=== PATIENT | female | born 1955 | race Caucasian/White ===

== ENCOUNTER 2021-01-18 21:24 | Inpatient (IN) ==
[2021-01-18] MEDS ORDERED: VANCOMYCIN CONSULT ACTIVE PRN (21:41)
[2021-01-18] MEDS ORDERED: PIPERACILLIN/TAZOBACTAM 4.5 GM/120 ML BAG IV ONE (21:41)
[2021-01-18] MEDS ORDERED: VANCOMYCIN HCL 2,750 MG in SODIUM CHLORIDE 0.9% 500 ML IV ONE (21:41)
[2021-01-18] MEDS ORDERED: PIPERACILL/TAZOBAC CONSULT ACTIVE PRN (21:41)
--- NOTE | 2021-01-18 21:57 | Emergency Department Note ---
Impression & Plan Diabetic foot ulcer, Cellulitis ED Provider Note PhysicalNAME: ALEXI HAYES AGE: 65 SEX: F : 1955 ARRIVES VIA: Ambulance INFORMANT: Patient, ED PROVIDER(S): Sosa Nolasco DO CHIEF COMPLAINT: Leg swelling HPI: The patient is a 65-year-old female who presented to the emergency department for an evaluation of pain in her leg. The patient noticed swelling and pain in her right leg. She is had ulceration in her right leg on her medial thigh which started out as a blister but also to ulcerations on her foot. There is 1 in her heel and one right behind her toes. She denies having any nausea or vomiting. She denies no fever. She does complain of severe pain when she tries ambulate. The patient states she saw her primary care physician for the symptoms in July of this year but was told to continue to monitor the situation. The patient is not currently on any antibiotics. The patient states that she has been compliant with all of her other outpatient medications. She states her pain is worsened with ambulation or movement. ROS: See above HPI for pertinent positives & negatives. A total of 10 systems reviewed and were otherwise negative. PAST MEDICAL HISTORY: See Below PAST SURGICAL HISTORY: See Below FAMILY HISTORY: See Below SOCIAL HISTORY: See Below HOME MEDICATIONS: See Below ALLERGIES: See Below VITALS: See Below PHYSICAL EXAMINATION: GENERAL: The patient is awake and alert. The patient is very anxious appearing. EYES: The conjunctivae are clear. The pupils are round and reactive. EARS, NOSE, MOUTH AND THROAT: The nose is without any evidence of any deformity. NECK: The neck is nontender and supple. RESPIRATORY: Normal respiratory effort is noted there is no evidence of wheezing rhonchi or rales CARDIOVASCULAR: Regular rate and rhythm noted there no murmurs rubs or gallops normal S1 normal S2. GASTROINTESTINAL: The abdomen is soft. Abdomen is nontender. MUSCULOSKELETAL/EXTREMITIES: There is no evidence of gross deformity full range of motion is noted in the hips and shoulders. SKIN: There is significant erythema and swelling of the right lower extremity. There is pedal edema bilaterally. Skin is warm and dry. There is an ulceration on the right heel as well as behind the right toes. There is also a very large ulceration on the medial right thigh. NEUROLOGIC: Patient is awake alert and oriented x3. MEDICAL DECISION MAKING: The patient is a 65-year-old female who presented to the emergency department for an evaluation of lower extremity pain and swelling. The patient's physical exam appears to be consistent with a very significant infection. The patient had an ulceration on her inner right thigh as well. The patient was treated with IV antibiotics in the emergency department. She was reevaluated multiple times. I discussed the patient's laboratory and radiographic studies with her. Ultimately I did recommend inpatient management. [facility] have agreed to evaluate the patient in the emergency department for further management and disposition. Triage Nursing notes reviewed. Prior medical records reviewed Vital Signs: reviewed and remarkable for hypotension Differential diagnosis: Cellulitis, abscess, MRSA infection, DVT, necrotizing fasciitis, dermatitis, drug eruption, allergic reaction, as well as other pathologies. ER treatment provided: See below Diagnostics interpreted by me: ECG: EKG was obtained in the emergency department. My interpretation is sinus rhythm at 83 bpm. There was no ectopy. There was no acute ST segment abnormalities noted. No previous tracing was available. Cardiac Monitoring: An order was placed for continuous cardiac monitoring. The monitor shows a rate of 79 bpm with sinus rhythm. Laboratory studies: As stated above and show below. Imaging studies: See below Consultation(s): 0005: I discussed this case with Dr. Rodriguez who [facility] Past Med/Surg History Medical History History of high cholesterol History of insulin dependent diabetes mellitus Hypertension Social History Smoking Status: Never smoker Feels Safe at Home: Yes Allergies Allergies Allergy/AdvReac Type Severity Reaction Status Date / Time No Known Allergies Allergy NONE Unverified 01/18/21 21:47 Home Meds Home Medications Medication Instructions Recorded Confirmed aspirin 81 mg tablet 81 mg PO DAILY 01/18/21 01/18/21 atenolol 50 mg tablet 50 mg PO DAILY 01/18/21 01/18/21 furosemide 20 mg tablet 20 mg PO DAILY PRN 01/18/21 01/18/21 hydrochlorothiazide 25 mg tablet 25 mg PO DAILY 01/18/21 01/18/21 insulin aspart U-100 100 unit/mL 0 unit SUBCUT UD 01/18/21 01/18/21 subcutaneous solution (Novolog U-100 Insulin aspart) insulin glargine 100 unit/mL 30 unit SUBCUT BID 01/18/21 01/18/21 subcutaneous solution (Lantus U-100 Insulin) losartan 100 mg tablet 100 mg PO DAILY 01/18/21 01/18/21 metformin 500 mg tablet 1,000 mg PO BID 01/18/21 01/18/21 simvastatin 20 mg tablet 20 mg PO DAILY 01/18/21 01/18/21 Results & Data (ED) Vital Signs Vital Signs - 24 hr 01/18/21 21:20 01/18/21 21:31 01/18/21 22:33 Temperature 37.5 C Temperature Source Oral Pulse Rate 88 86 83 Pulse Rate from SpO2 Sensor 86 Respiratory Rate 20 22 21 Respiratory Effort / Characteristics Non-Labored Respiratory Depth Normal Blood Pressure 136/65 106/59 L Blood Pressure Mean 88 74 Pulse Oximetry 91 95 Oxygen Delivery Method Room Air Oxygen Flow Rate Sepsis Recent Fever Within 48 Hours No Sepsis New/Unexplained Change in Mental Status N/A Sepsis Action Taken by Nursing No Action Required 01/18/21 22:51 01/18/21 23:01 01/18/21 23:11 Temperature Temperature Source Pulse Rate 80 80 Pulse Rate from SpO2 Sensor 81 Respiratory Rate 18 18 Respiratory Effort / Characteristics Respiratory Depth Blood Pressure 114/73 Blood Pressure Mean 86 Pulse Oximetry 94 95 95 Oxygen Delivery Method Nasal Cannula Nasal Cannula Nasal Cannula Oxygen Flow Rate 2 1 1 Sepsis Recent Fever Within 48 Hours Sepsis New/Unexplained Change in Mental Status Sepsis Action Taken by Nursing 01/18/21 23:12 01/18/21 23:34 Temperature Temperature Source Pulse Rate 79 Pulse Rate from SpO2 Sensor Respiratory Rate 18 18 Respiratory Effort / Characteristics Non-Labored Respiratory Depth Blood Pressure 108/46 L Blood Pressure Mean 66 Pulse Oximetry 95 95 Oxygen Delivery Method Nasal Cannula Nasal Cannula Oxygen Flow Rate 1 1 Sepsis Recent Fever Within 48 Hours Sepsis New/Unexplained Change in Mental Status Sepsis Action Taken by [facility] Medications Current Medication List: was personally reviewed by me Laboratory Data Attestation: I reviewed the patient's lab results. Result diagrams: 01/18/21 22:08 01/18/21 22:08 Lab Results 01/18/21 01/18/21 01/18/21 Range/Units 22:08 22:08 22:08 WBC 15.76 H (4.8-10.8) K/uL RBC 4.61 (4.2-5.4) M/uL Hgb 12.2 (12.0-16.0) g/dL Hct 36.5 L (37-47) % MCV 79.2 L (80-100) fL MCH 26.5 (25-34) pg MCHC 33.4 (32-36) g/dL RDW Std Deviation 49.4 H (36.4-46.3) fL RDW Coeff of Gurmeet 17.7 H (11.5-14.5) % Plt Count 453 H (130-400) K/uL MPV 10.3 (7.4-10.4) fL Immature Gran % (Auto) 0.4 % Neut % (Auto) 83.0 % Lymph % (Auto) 8.2 % Highland % (Auto) 8.0 % Eos % (Auto) 0.2 % Baso % (Auto) 0.2 % Neut # (Auto) 13.09 H (1.4-6.5) K/uL Lymph # (Auto) 1.29 (1.2-3.4) K/uL Highland # (Auto) 1.26 H (0.11-0.59) K/uL Eos # (Auto) 0.03 (0-0.5) K/uL Baso # (Auto) 0.03 (0-0.2) K/uL Immature Gran # (Auto) 0.06 H (0.00-0.02) K/uL PT 11.9 (9.0-12.0) Seconds INR 1.2 H (0.9-1.1) APTT 31.6 H (21.0-31.0) Seconds PTT Ratio 1.2 Sodium 138 (136-145) mmol/L Potassium 3.5 (3.5-5.1) mmol/L Chloride 101 (98-107) mmol/L Carbon Dioxide 27 (21-32) mmol/L Anion Gap 10.0 (3-11) BUN 29 H (7-18) mg/dl Creatinine 1.13 (0.6-1.2) mg/dl Est Cr Clr Drug Dosing 65.6 ml/min Est GFR ( Amer) 58.2 ml/min Est GFR (Non-Af Amer) 50.3 ml/min BUN/Creatinine Ratio 25.2 H (10-20) Glucose 148 H (70-99) mg/dl Lactate (0.4-2.0) mmol/L Calcium 9.0 (8.5-10.1) mg/dl Magnesium 2.0 (1.8-2.4) mg/dl Total Bilirubin 0.7 (0.2-1) mg/dl AST 21 (15-37) U/L ALT 18 (12-78) U/L Alkaline Phosphatase 147 H (45-117) U/L Troponin I < 0.015 (0-0.045) ng/ml Total Protein 7.3 (6.4-8.2) gm/dl Albumin 1.9 L (3.4-5.0) gm/dl Globulin 5.4 H (2.5-4.0) gm/dl Albumin/Globulin Ratio 0.4 L (0.9-2) Procalcitonin (0-0.5) ng/ml COVID-19 Eval Order SARS-CoV-2 (PCR) (Negative) 01/18/21 01/18/21 01/18/21 Range/Units 22:08 22:08 22:39 WBC (4.8-10.8) K/uL RBC (4.2-5.4) M/uL Hgb (12.0-16.0) g/dL Hct (37-47) % MCV (80-100) fL MCH (25-34) pg MCHC (32-36) g/dL RDW Std Deviation (36.4-46.3) fL RDW Coeff of Gurmeet (11.5-14.5) % Plt Count (130-400) K/uL MPV (7.4-10.4) fL Immature Gran % (Auto) % Neut % (Auto) % Lymph % (Auto) % Highland % (Auto) % Eos % (Auto) % Baso % (Auto) % Neut # (Auto) (1.4-6.5) K/uL Lymph # (Auto) (1.2-3.4) K/uL Highland # (Auto) (0.11-0.59) K/uL Eos # (Auto) (0-0.5) K/uL Baso # (Auto) (0-0.2) K/uL Immature Gran # (Auto) (0.00-0.02) K/uL PT (9.0-12.0) Seconds INR (0.9-1.1) APTT (21.0-31.0) Seconds PTT Ratio Sodium (136-145) mmol/L Potassium (3.5-5.1) mmol/L Chloride (98-107) mmol/L Carbon Dioxide (21-32) mmol/L Anion Gap (3-11) BUN (7-18) mg/dl Creatinine (0.6-1.2) mg/dl Est Cr Clr Drug Dosing ml/min Est GFR ( Amer) ml/min Est GFR (Non-Af Amer) ml/min BUN/Creatinine Ratio (10-20) Glucose (70-99) mg/dl Lactate 1.4 (0.4-2.0) mmol/L Calcium (8.5-10.1) mg/dl Magnesium (1.8-2.4) mg/dl Total Bilirubin (0.2-1) mg/dl AST (15-37) U/L ALT (12-78) U/L Alkaline Phosphatase (45-117) U/L Troponin I (0-0.045) ng/ml Total Protein (6.4-8.2) gm/dl Albumin (3.4-5.0) gm/dl Globulin (2.5-4.0) gm/dl Albumin/Globulin Ratio (0.9-2) Procalcitonin 3.90 H (0-0.5) ng/ml COVID-19 Eval Order Covid19 at [facility] SARS-CoV-2 (PCR) (Negative) 01/18/21 Range/Units 22:39 WBC (4.8-10.8) K/uL RBC (4.2-5.4) M/uL Hgb (12.0-16.0) g/dL Hct (37-47) % MCV (80-100) fL MCH (25-34) pg MCHC (32-36) g/dL RDW Std Deviation (36.4-46.3) fL RDW Coeff of Gurmeet (11.5-14.5) % Plt Count (130-400) K/uL MPV (7.4-10.4) fL Immature Gran % (Auto) % Neut % (Auto) % Lymph % (Auto) % [place]land % (Auto) % Eos % (Auto) % Baso % (Auto) % Neut # (Auto) (1.4-6.5) K/uL Lymph # (Auto) (1.2-3.4) K/uL Highland # (Auto) (0.11-0.59) K/uL Eos # (Auto) (0-0.5) K/uL Baso # (Auto) (0-0.2) K/uL Immature Gran # (Auto) (0.00-0.02) K/uL PT (9.0-12.0) Seconds INR (0.9-1.1) APTT (21.0-31.0) Seconds PTT Ratio Sodium (136-145) mmol/L Potassium (3.5-5.1) mmol/L Chloride (98-107) mmol/L Carbon Dioxide (21-32) mmol/L Anion Gap (3-11) BUN (7-18) mg/dl Creatinine (0.6-1.2) mg/dl Est Cr Clr Drug Dosing ml/min Est GFR ( Amer) ml/min Est GFR (Non-Af Amer) ml/min BUN/Creatinine Ratio (10-20) Glucose (70-99) mg/dl Lactate (0.4-2.0) mmol/L Calcium (8.5-10.1) mg/dl Magnesium (1.8-2.4) mg/dl Total Bilirubin (0.2-1) mg/dl AST (15-37) U/L ALT (12-78) U/L Alkaline Phosphatase (45-117) U/L Troponin I (0-0.045) ng/ml Total Protein (6.4-8.2) gm/dl Albumin (3.4-5.0) gm/dl Globulin (2.5-4.0) gm/dl Albumin/Globulin Ratio (0.9-2) Procalcitonin (0-0.5) ng/ml COVID-19 Eval Order SARS-CoV-2 (PCR) NEGATIVE (Negative) Administered Medications Discontinued Medications Piperacillin Sod/Tazobactam Sod (Zosyn) 4.5 gm in 120 mls @ 240 mls/hr IV NOW ONE Stop: 01/18/21 22:10 Last Infusion: 01/18/21 23:13 Dose: 0 mls/hr Documented by: [id number] Admin: 01/18/21 22:34 Dose: 240 mls/hr Documented by: [id number] Vancomycin HCl 2,750 mg/ (Sodium Chloride) 555 mls @ 200 mls/hr IV NOW ONE Stop: 01/19/21 00:27 Last Admin: 01/18/21 23:37 Dose: 200 mls/hr Documented by: [id number] Sodium Chloride (Nss 1000ml) 1,000 mls @ 999 mls/hr IV .Q1H1M ONE Stop: 01/19/21 01:06 Last Admin: 01/19/21 00:18 Dose: 999 mls/hr Documented by: [id number] Imaging Data Radiologist's Impression: Patient: ALEXI HAYES (Female) : 51 Status: ER Date: 01/18/21 23:35 Room #: History: swelling Slices: 20 Priors: Tech: Yvette Mcclure @ [phone] Exams: US VENOUS RIGHT LOWER EXTREMITY Contrast: Accession Numbers: [id number] Referring Physician: SOSA NOLASCO Preliminary Findings Only See Final Report For Complete Findings US VENOUS RIGHT LOWER EXTREMITY: No evidence of deep venous thrombosis of the right lower extremity. Normal flow, compression, and augmentation in the right common femoral, superficial femoral, and popliteal veins. Radiologist: Priyank Romero M.D. Study ready at 23:35 and initial results transmitted at 23:43 Discharge Plan Visit Data Chief Complaint: Infection, Wound Stated Complaint: L.E. CELLULITIS/PAIN ED Provider: Sosa Nolasco Discharge Problem: Diabetic foot ulcer, Cellulitis Discharge Instructions Interventions: ED Discharge Assessment Last Done: 01/19/21 02:19 Forms Stand Alone Forms: [employer] Prescriptions Prescriptions: No Action metformin 500 mg tablet 1,000 mg PO BID RF: 0 Lantus U-100 Insulin 100 unit/mL solution 30 unit SUBCUT BID RF: 0 insulin aspart U-100 [Novolog U-100 Insulin aspart] 100 unit/mL solution 0 unit subcut UD RF: 0 simvastatin 20 mg tablet 20 mg PO DAILY RF: 0 aspirin 81 mg Tablet 81 mg PO DAILY RF: 0 hydrochlorothiazide 25 mg tablet 25 mg PO DAILY RF: 0 furosemide 20 mg tablet 20 mg PO DAILY PRN (Reason: Fluid Retention) RF: 0 losartan 100 mg tablet 100 mg PO DAILY RF: 0 atenolol 50 mg tablet 50 mg PO DAILY RF: 0 Referrals Referrals: Naman Braun MD [Outside Practitioners] - Discharge Problem: Diabetic foot ulcer Qualifiers: Diabetic foot ulcer location: heel Diabetes mellitus type: other specified (including [place]) Laterality: right Non-pressure ulcer stage: unspecified non- pressure ulcer stage Qualified Code(s): E13.621 - Other specified diabetes mellitus with foot ulcer Cellulitis Qualifiers: Site of cellulitis: extremity Site of cellulitis of extremity: lower extremity Laterality: right Qualified Code(s): L03.115 - Cellulitis of right lower limb
[2021-01-18 22:21] LABS: Basophils # (auto) 0.03 K/uL (0-0.2); Basophils % (auto) 0.2 %; Eosinophils # (auto) 0.03 K/uL (0-0.5); Eosinophils % (auto) 0.2 %; Hematocrit (blood only) 36.5 % (37-47); Hemoglobin 12.2 g/dL (12.0-16.0); Immature Granulocytes # (auto) 0.06 K/uL (0.00-0.02); Immature Granulocytes % (auto) 0.4 %; Lymphocytes # (auto) 1.29 K/uL (1.2-3.4); Lymphocytes % (auto) 8.2 %; Mean Corpuscular Hemoglobin 26.5 pg (25-34); Mean Corpuscular Hgb Conc 33.4 g/dL (32-36); Mean Corpuscular Volume 79.2 fL (80-100); Mean Platelet Volume 10.3 fL (7.4-10.4); Monocytes # (auto) 1.26 K/uL (0.11-0.59); Neutrophils # (auto) 13.09 K/uL (1.4-6.5); Platelet Count 453 K/uL (130-400); RDW Coefficient of Variation 17.7 % (11.5-14.5); RDW Standard Deviation 49.4 fL (36.4-46.3); Red Blood Count 4.61 M/uL (4.2-5.4); White Blood Count 15.76 K/uL (4.8-10.8)
[2021-01-18 22:33] LABS: INR 1.2 (0.9-1.1); Partial Thromboplastin Ratio 1.2; Partial Thromboplastin Time 31.6 Seconds (21.0-31.0); Prothrombin Time 11.9 Seconds (9.0-12.0)
[2021-01-18 22:39] LABS: Alanine Aminotransferase 18 U/L (12-78); Albumin Level 1.9 gm/dl (3.4-5.0); Aspartate Aminotransferase 21 U/L (15-37); BUN Creatinine Ratio 25.2 (10-20); Blood Urea Nitrogen 29 mg/dl (7-18); Carbon Dioxide 27 mmol/L (21-32); Chloride 101 mmol/L (98-107); Creatinine Clr Calc Pharmacy 65.6 ml/min; Est GFR (African American) 58.2 ml/min; Est GFR (Non-African American) 50.3 ml/min; Glucose 148 mg/dl (70-99); Potassium 3.5 mmol/L (3.5-5.1); Sodium 138 mmol/L (136-145)
[2021-01-18 22:43] LABS: Albumin Globulin Ratio 0.4 (0.9-2); Alkaline Phosphatase 147 U/L (45-117); Bilirubin,Total 0.7 mg/dl (0.2-1); Globulin 5.4 gm/dl (2.5-4.0); Total Protein 7.3 gm/dl (6.4-8.2); Troponin I < 0.015 ng/ml (0-0.045)
[2021-01-19] MEDS ORDERED: SODIUM CHLORIDE 0.9% 1000ML 1,000 ML IV ONE (00:06)
--- NOTE | 2021-01-19 00:36 | Emergency Department Note ---
Pre Sedation Assessment Vital Signs Temp Pulse Resp BP Pulse Ox 01/18/21 23:34 79 18 108/46 L 95 01/18/21 23:12 18 95 01/18/21 23:11 80 18 95 01/18/21 23:01 80 18 114/73 95 01/18/21 22:51 94 01/18/21 22:33 83 21 01/18/21 21:31 86 22 106/59 L 95 01/18/21 21:20 37.5 C 88 20 136/65 91 Pre-Sedation Airway Assessment Smoking Status: Never smoker Notes The planned sedation has been discussed with the patient. Informed Consent was obtained. I have identified the patient, determined the appropriateness of sedation and have assessed the patient immediately prior to the procedure. All medicine(s) and interventions are by my order.
[2021-01-19] MEDS ORDERED: NITROGLYCERIN SL 0.4 MG/TAB TAB SL PRN (02:49)
[2021-01-19] MEDS ORDERED: FUROSEMIDE 20 MG TAB PO PRN (02:49)
[2021-01-19] MEDS ORDERED: POLYETHYLENE (MIRALAX) 17 GM PACK PO PRN (02:49)
[2021-01-19] MEDS ORDERED: ACETAMINOPHEN 325 MG TAB PO PRN (02:49)
[2021-01-19] MEDS ORDERED: ONDANSETRON INJ 2 MG/ML 2 ML VIAL IV PRN ×2 (02:49→12:22)
[2021-01-19] MEDS ORDERED: CARBOHYDRATES FOR HYPOGLYCEMIA PO PRN (03:00)
[2021-01-19] MEDS ORDERED: GLUCOSE 40% GEL 15 GM TUBE PO PRN (03:00)
[2021-01-19] MEDS ORDERED: GLUCAGON FOR INJ 1 MG VIAL IM PRN (03:00)
[2021-01-19] MEDS ORDERED: DEXTROSE 50% 50 ML SYRINGE IV PRN (03:00)
[2021-01-19] MEDS ORDERED: GLUCOSE 10 TABS/TUBE PO PRN (03:00)
[2021-01-19] MEDS: SODIUM CHLORIDE 0.9% 1000ML 1,000 ML IV SCH ×2 (03:22→17:46)
[2021-01-19] MEDS: PIPERACILLIN/TAZOBACTAM 4.5 GM in DEXTROSE 5% 100 ML IV SCH ×3 (03:24→19:48)
[2021-01-19] MEDS: INSULIN ASPART 100 UNITS/ML 3 ML PEN SC SCH ×5 (03:26→21:22)
--- NOTE | 2021-01-19 03:54 | History and Physical Report ---
DATE OF ADMISSION: 01/19/2021. CHIEF COMPLAINT: Right lower extremity wounds. HISTORY OF PRESENT ILLNESS: This is a 65-year-old female with past medical history significant for type 2 diabetes, diabetic dermatitis, hypertension, morbid obesity, chronic kidney disease stage III, venous stasis dermatitis of both lower extremities, history of ocular hypertension, presents with right lower extremity wounds. The patient states she has a right heel wound on the plantar aspect since last almost 6 months to one year, but recently about 3 weeks ago, she developed another wound on the right thigh region medial aspect and also now she has developed a wound below the right small toe. Since the last 3 days, she has noted pain in the foot and she is not able to ambulate because should could not put weight on the leg, which prompted her to come to the hospital. As per the ER physician, when the EMS went to pick her up from the house, the house was very unkempt. The wounds were foul smelling. The patient denies any fevers. There is some drainage seen from the wound from below the right small toe on the plantar aspect. The patient is hemodynamically stable, alert and oriented. Denies any headache, no dizziness, no blurred visions, no earache, no runny nose, no sore throat, no cough. Appetite is okay. No difficulty swallowing. No chest pain, no shortness of breath, no nausea, no abdominal pain. Normal bowel movements. Denies any diarrhea or constipation, no blood in the stools or black stools. States since the last few days, she is not urinating much and she says not drinking much water. Denies any hematuria. ALLERGIES: No known drug allergies. PAST MEDICAL HISTORY: As mentioned above. PAST SURGICAL HISTORY: Drainage of the vulva perineum abscess in 2008, C- section. MEDICATIONS: The patient is on aspirin 81 mg p.o. daily, atenolol 50 mg p.o. daily, furosemide 20 mg p.o. daily p.r.n., hydrochlorothiazide 25 mg p.o. daily, NovoLog subcutaneous as directed, Lantus 30 units b.i.d., losartan 100 mg p.o. daily, metformin 1000 mg p.o. b.i.d., simvastatin 20 mg p.o. daily. FAMILY HISTORY: Significant for mother has colon cancer, developed at the age of 81; father had dementia, at age of 83; sister has diabetes; paternal grandmother had cancer. SOCIAL HISTORY: , no smoking, no alcohol, no drug use. REVIEW OF SYSTEMS: As per HPI. Rest of the review of systems is negative. PHYSICAL EXAMINATION: GENERAL: The patient is morbidly obese, currently not in acute distress. VITAL SIGNS: Temperature 37.5, pulse 79, respiratory rate 18, blood pressure 108/46, oxygen 95% on 1 liter. HEENT: Pupils equal, round and reactive to light. Oral mucosa moist. NECK: No JVD. No neck masses. CARDIOVASCULAR: S1 and S2 heard. Regular rate and rhythm. No murmur, no gallop. RESPIRATORY SYSTEM: Normal AP diameter. No accessory muscle use. No wheezing, no crackles. ABDOMEN: Soft, bowel sounds present, nontender, no distention. CENTRAL NERVOUS SYSTEM: Alert and oriented. Cranial nerves II through XII grossly intact, nonfocal. EXTREMITIES: Bilateral lower extremity gross edema present. Right lower extremity is erythematous and also ulcers seen on the right heel on the plantar aspect and also draining wound seen on the plantar aspect below the right small toe and also wound seen on the right thigh medial aspect, 4 x 6 cm with black eschar and foul smelling. LABORATORY DATA: WBC 15.7, hemoglobin 12.2, hematocrit 36.5, platelets 453. PT 11.9, INR 1.2, APTT 31.6. Sodium 138, potassium 3.5, chloride 101, bicarbonate 27, BUN 29, creatinine 1.1, serum glucose 148, lactate 1.4, calcium 9, magnesium 2, total bilirubin 0.7, AST 21, ALT 18, alkaline phosphatase 147. Troponin I less than 0.015. Procalcitonin 0.9. SARS-CoV-2 PCR negative. IMAGING DATA: Chest x-ray, no acute findings. Venous Dopplers, preliminary report, no DVT. ASSESSMENT AND PLAN: The patient is a 65-year-old female who presents with right lower extremity wound. 1. Right lower extremity wound in the inner thigh in the medial aspect of the thigh and also in the plantar region of the heel and also below the right small toe. We will get an x-ray of the foot and also CT scan of the foot and thigh region to rule out any abscess or osteomyelitis. ER empirically started on vancomycin and Zosyn, which will be continued. Follow the cultures. Monitor in the [employer] tele. Gentle fluids. Consult orthopedics in the a.m. We will keep her n.p.o. until seen by orthopedics. The patient does not have any pain. 2. Diabetes: We will cut back on Lantus to 15 units b.i.d. because the patient is n.p.o. now and place on insulin sliding scale. Hold the metformin. Follow the blood sugars, follow HbA1c level. 3. History of hypertension: Continue with losartan and atenolol and hydrochlorothiazide. Will monitor the blood pressure. 4. History of venous stasis dermatitis of both lower extremities and lymphedema in lower extremities. The patient is on Lasix as needed. If any concerns, we will get an echocardiogram.Will monitor for volume overload. 5. Hyperlipidemia: On statin. 6. Chronic kidney disease stage III: Baseline creatinine of 1, presently with a creatinine of 1.1. Will follow the labs. 7. Morbid obesity: Needs counseling. May need sleep study as outpatient. 8. Deep venous thrombosis prophylaxis: hep sub q but hold for now for any procedures in am. DISPOSITION: Closely monitor in the [employer] tele. PT/OT prior to discharge. Social service to help with discharge planning. Also, consult wound care. Addendum: CT foot showing gangrenous necrosis in the lateral aspect of the foot. Notified Ortho. To be evaluated in am. Npo. added iv clindamycin. holding hep sub q. Job ID: [id number] MTDD
[2021-01-19] MEDS ORDERED: PNEUMOCOCCAL POLYSACCHARIDES 25 MCG/0.5 ML VIAL/SYR IM ONE (05:01)
--- NOTE | 2021-01-19 05:37 | Pharmacy Report ---
Pharmacy Abx Dose Short Note - Date of Service January 19, 2021 - Assessment & Plan Assessment 65 year old F receiving Vancomycin, Zosyn, and Clindamycin for empiric treatment of right lower extremity wounds * PMHx significant for T2DM, obesity, CKD stage III and venous stasis dermatitis of both lower extremities. * Afebrile. Leukocytosis of 15.8k. SCr 1.13, unknown baseline. Procalcitonin elevated at 3.90. * Blood cultures pending. Imaging pending as well. Vancomycin and Zosyn are ordered empirically so will be discontinued after 48 hours of therapy. Clindamycin ordered for skin and soft tissue infection. Plan Vancomycin * Loading Dose: Vancomycin 2750 mg (20 mg/kg) IV x 1 * Maintenance Dose: 1500 mg (10 mg/kg) IV every 24 hours * Extended dosing interval and decreased dose chosen secondary to elevated BMI and risk of accumulation * Goal trough level: ~ 15 mcg/mL * No level will be ordered unless therapy is to extend beyond 48 hours. Zosyn * 4.5 g IV bolus over 30 minutes followed by 4.5 g IV every 8 hours for CrCl a stephanie 20 mL/min and BMI above 35. Clindamycin * Not a pharmacy consult * 600 mg IV every 8 hours is an appropriate dose Pharmacy will continue to follow and will adjust dose/frequency as necessary. Thank you.
[2021-01-19] MEDS: CLINDAMYCIN 600 MG in DEXTROSE 5% 50 ML IV SCH ×3 (06:15→21:20)
[2021-01-19] MEDS ORDERED: MICONAZOLE NITRATE POWDER 43 GM EXT PRN (06:47)
--- NOTE | 2021-01-19 07:00 | CT Scan Report ---
CT femur RT wo con CLINICAL HISTORY: Right thigh wound medial aspect. abscess, osteomyelitis. COMPARISON STUDY: Right lower extremity venous Doppler ultrasound January 18, 2021. CT of the pelv is February 15, 2009. TECHNIQUE: Axial images of the right thigh and femur were obtained without intravenous contrast. Sagi ttal and coronal reconstructions were viewed. Automated exposure control was utilized for the study. A dose lowering technique was utilized adhering to the principles of ALARA. FINDINGS: Visualized portions of the pelvis demonstrate asymmetrically enlarged right external iliac and inguinal lymph nodes. Index right external iliac lymph node measures 3.8 x 1.9 cm. There is no ev idence for acute fracture or osteomyelitis within the right femur. Osteoarthritis of the right knee i s noted. Note is made of skin thickening and subcutaneous stranding of the medial proximal right thig h consistent with cellulitis. There is associated skin defect consistent with wound. As expected, the re is gas within the lumen. There is no gas extending into the adjacent soft tissues. There is an adj acent 1.8 cm fluid attenuation focus. No additional fluid collections are present. Right lower extrem ity subcutaneous edema is noted. IMPRESSION: 1. Skin thickening and subcutaneous stranding of the medial right thigh consistent with cellulitis. A ssociated skin defect consistent with wound. Adjacent 1.8 cm fluid attenuation focus could reflect fl uid or small fluid collection. 2. No evidence for acute osteomyelitis within the right femur. 3. Asymmetrically enlarged right external iliac and inguinal lymph nodes. These are probably reactive . Follow-up CT in 3 months is recommended. ACT 112: Negative or not required by law. Electronically signed by: Bakari Perez M.D. 01/19/2021 6:59 AM
--- NOTE | 2021-01-19 07:01 | Ultrasound Report ---
RIGHT LOWER EXTREMITY VENOUS DOPPLER CLINICAL HISTORY: swelling COMPARISON STUDY: No previous studies for comparison. TECHNIQUE: Sonography of the deep venous system of the right lower extremity was performed. Compress ion and augmentation were evaluated. FINDINGS: Exam was compromised due to suboptimal penetration. The right common femoral, superficial f emoral and popliteal veins were compressible. Augmentation was normal. Flow was shown within the deep calf vessels. IMPRESSION: Technically difficult exam but no evidence of deep venous thrombus within the right lower extremity. ACT 112: Negative or not required by law. Electronically signed by: Bakari Perez M.D. 01/19/2021 6:59 AM
--- NOTE | 2021-01-19 07:37 | CT Scan Report ---
CT foot RT wo con CLINICAL HISTORY: osteomyelitis/abscess. diabetic wounds COMPARISON STUDY: Right foot radiographs January 19, 2021. TECHNIQUE: Axial images of the right foot were obtained without IV contrast. Sagittal and coronal rec onstructions were viewed. Automated exposure control was utilized for the study. A dose lowering ethan hnique was utilized adhering to the principles of ALARA. FINDINGS: Note is made of extensive subcutaneous edema and skin thickening of the right ankle and rig ht foot. There is a wound of the right foot overlying the lateral aspect of the right fifth metatarso phalangeal joint with adjacent soft tissue thickening and fluid. There is extensive bony destruction of the phalanges of the right fifth toe as well as the right fifth metatarsal with adjacent soft tiss ue gas. The findings represent acute osteomyelitis. No additional sites of acute osteomyelitis are id entified within the right foot. Note is made of soft tissue gas within the extensor compartment of th e right foot extending within the tendon sheath for the extensor digitorum longus. This gas extends a t least to the level of the distal shaft of the right tibia and is partially imaged on this examinati on. Moderate to severe midfoot osteoarthritis is present. There is extensive posterior and plantar ca lcaneal spurring. IMPRESSION: Wound overlying the lateral aspect of the right fifth metatarsophalangeal joint with soft tissue thic kening and fluid consistent with cellulitis. Extensive bony erosion with fragmentation of the right f ifth metatarsal head as well as erosions of the remainder of the fifth metatarsal and phalanges of th e right fifth toe consistent with acute osteomyelitis. Bone fragments nearly extend to the skin. Gas and fluid within the tendon sheath for extensor digitorum longus consistent with infectious tenosynov itis, partially imaged on this exam, as described above. A CT of the right tibia and fibula could be obtained to evaluate the superior extent. This suggests a necrotizing/gangrenous infection. Orthopedi c consultation is recommended. ACT 112: Negative or not required by law. Electronically signed by: Bakari Perez M.D. 01/19/2021 7:35 AM
--- NOTE | 2021-01-19 08:01 | XRay Report ---
XR foot RT min 3V routine CLINICAL HISTORY: diabetic wound. osteomyelitis COMPARISON: None FINDINGS: There is extensive bony destruction of the right fifth metatarsal head with fragmentation. In addition, there is osteolysis extending throughout the right fifth metatarsal as well as involvem ent of the phalanges of the right fifth toe. Adjacent soft tissue swelling is noted. Tarsometatarsal joints are intact. There is moderate mid foot osteoarthritis. Plantar and posterior calcaneal spurrin g is noted. No additional sites of bony erosion are identified within the right foot. A wound of the right foot overlying the lateral aspect of the right fifth metatarsophalangeal joint is noted. There is right ankle and right foot soft tissue swelling. Probable wound overlying the calcaneus is noted. Note is made of gas overlying the dorsal aspect of the midfoot. IMPRESSION: 1. Findings consistent with acute osteomyelitis of the right fifth metatarsal and phalanges of the ri ght fifth digit with bony destruction and fragmentation of the right fifth metatarsal head. Adjacent wound and cellulitis. Gas overlying the dorsal aspect of the right midfoot corresponds to gas within the tendon sheath for extensor digitorum longus better depicted on CT. This represents infectious ten osynovitis with gas-forming infectious process. 2. Probable additional fluid overlying the calcaneus. 3. Moderate mid foot osteoarthritis. ACT 112: Negative or not required by law. Electronically signed by: Bakari Perez M.D. 01/19/2021 8:00 AM
--- NOTE | 2021-01-19 08:11 | XRay Report ---
XR chest 1V portable CLINICAL HISTORY: SEPSIS COMPARISON STUDY: No previous studies for comparison. FINDINGS: No pneumothorax. No definite pleural effusion is seen however evaluation is suboptimal because left costophrenic angle is partially outside the [id number]. Also lung bases are not well seen due to motion artifact. Diffuse reticular prominence of pulmonary interstitium with mild superimposed nodular component is se en and might represent scattered atelectasis, chronic fibrosis or pulmonary edema. Cardiomediastinal silhouette is within upper limits of normal. Mild pulmonary vascular congestion is seen. Bilateral ирина are prominent.. Osseous structures: Degenerative changes of the spine and bilateral shoulders. IMPRESSION: 1. Cardiomediastinal silhouette is within upper limits of normal and associated with pulmonary vascu lar congestion and possible pulmonary edema. 2. Suboptimal exam due to motion artifact. ACT 112: Negative or not required by law. The above report was generated using voice recognition software. It may contain grammatical, syntax o r spelling errors. Electronically signed by: Delilah Elkins DO 01/19/2021 8:10 AM
[2021-01-19] MEDS: ASPIRIN 81 MG ECTAB PO SCH (08:16)
[2021-01-19] MEDS: hydroCHLOROthiazide 25 MG TAB PO SCH (08:16)
[2021-01-19] MEDS: ATENOLOL 50 MG TABLET PO SCH (08:16)
[2021-01-19] MEDS: SIMVASTATIN 20 MG TAB PO SCH (08:17)
[2021-01-19] MEDS: LOSARTAN POTASSIUM 50 MG TAB PO SCH (08:17)
[2021-01-19 08:29] LABS: Basophils # (auto) 0.05 K/uL (0-0.2); Basophils % (auto) 0.3 %; Eosinophils # (auto) 0.06 K/uL (0-0.5); Eosinophils % (auto) 0.3 %; Hematocrit (blood only) 34.5 % (37-47); Hemoglobin 11.2 g/dL (12.0-16.0); Immature Granulocytes # (auto) 0.06 K/uL (0.00-0.02); Immature Granulocytes % (auto) 0.3 %; Lymphocytes # (auto) 1.63 K/uL (1.2-3.4); Lymphocytes % (auto) 9.5 %; Mean Corpuscular Hemoglobin 26.1 pg (25-34); Mean Corpuscular Hgb Conc 32.5 g/dL (32-36); Mean Corpuscular Volume 80.4 fL (80-100); Monocytes # (auto) 1.46 K/uL (0.11-0.59); Monocytes % (auto) 8.5 %; Neutrophils # (auto) 13.94 K/uL (1.4-6.5); Neutrophils % (auto) 81.1 %; Platelet Count 414 K/uL (130-400); RDW Coefficient of Variation 17.8 % (11.5-14.5); RDW Standard Deviation 51.2 fL (36.4-46.3); Red Blood Count 4.29 M/uL (4.2-5.4)
[2021-01-19 08:48] LABS: BUN Creatinine Ratio 19.5 (10-20); Calcium 8.5 mg/dl (8.5-10.1); Creatinine Clr Calc Pharmacy 66.1 ml/min; Est GFR (African American) 58.9 ml/min; Est GFR (Non-African American) 50.8 ml/min; Magnesium 1.9 mg/dl (1.8-2.4); Potassium 3.5 mmol/L (3.5-5.1)
[2021-01-19] MEDS ORDERED: INSULIN GLARGINE SOLOSTAR 100 UNITS/ML 3 ML PEN SC SCH (09:00)
[2021-01-19 10:31] LABS: Appearance Urine Cloudy (Clear); Bilirubin Urine Negative (Negative); Blood Urine Trace (Negative); Color Urine Yellow; Epithelial Cell Urine Auto >30 /lpf (0-5); Glucose Urine UA Negative (Negative); Ketones Urine Negative (Negative); Leukocyte Esterase Urine Trace (Negative); Nitrite Urine Negative (Negative); Protein Urine 1+ (Negative); RBC Urine Automated 0-4 /hpf (0-4); Specific Gravity Urine 1.017 (1.000-1.030); Urobilinogen Urine Negative (Negative)
--- NOTE | 2021-01-19 10:43 | Anesthesiology Consultation ---
Date of Service January 19, 2021 Assessment & Plan (1) Encounter for pre-operative examination: Chart Review Chart Review: Acceptable Risk for Surgery History Surgery Operation Date: 01/19/21 11:00 Proposed Procedures p Right 5th Metatarsal Head Amputation(Right) - Hermilo Montalvo DO Height/Weight Height: 5 ft 1 in Weight: 143.1 kg Allergies Allergy/AdvReac Type Severity Reaction Status Date / Time No Known Allergies Allergy NONE Unverified 01/18/21 21:47 Medications Home Medications Medication Instructions Recorded Confirmed Last Taken aspirin 81 mg tablet 81 mg PO DAILY 01/18/21 01/18/21 Unknown atenolol 50 mg tablet 50 mg PO DAILY 01/18/21 01/18/21 Unknown furosemide 20 mg tablet 20 mg PO DAILY PRN 01/18/21 01/18/21 Unknown hydrochlorothiazide 25 mg tablet 25 mg PO DAILY 01/18/21 01/18/21 Unknown insulin aspart U-100 100 unit/mL 0 unit SUBCUT UD 01/18/21 01/18/21 01/18/21 subcutaneous solution (Novolog U-100 Insulin aspart) insulin glargine 100 unit/mL 30 unit SUBCUT BID 01/18/21 01/18/21 01/18/21 subcutaneous solution (Lantus U-100 Insulin) losartan 100 mg tablet 100 mg PO DAILY 01/18/21 01/18/21 Unknown metformin 500 mg tablet 1,000 mg PO BID 01/18/21 01/18/21 Unknown simvastatin 20 mg tablet 20 mg PO DAILY 01/18/21 01/18/21 Unknown Active Medications Generic Name Dose Route Start Last Admin Trade Name Michele PRN Reason Stop Dose Admin Aspirin 81 mg 01/19/21 09:00 01/19/21 08:16 Aspirin 81 Mg Ectab PO 02/18/21 08:59 81 mg DAILY MYESHA Administration Atenolol 50 mg 01/19/21 09:00 01/19/21 08:16 Atenolol 50 Mg Tablet PO 02/18/21 08:59 50 mg DAILY MYESHA Administration Hydrochlorothiazide 25 mg 01/19/21 09:00 01/19/21 08:16 Hydrochlorothiazide 25 Mg Tab PO 02/18/21 08:59 25 mg DAILY MYESHA Administration Sodium Chloride 1,000 mls @ 80 mls/hr 01/19/21 03:00 01/19/21 06:50 Nss 1000ml IV 02/18/21 02:59 80 mls/hr .[id number] MYESHA Infusion Piperacillin Sod/Tazobactam 120 mls @ 30 mls/hr 01/19/21 04:00 01/19/21 08:05 Sod 4.5 gm/ Dextrose IV 01/21/21 03:59 Infused Q8H MYESHA Infusion Protocol Clindamycin Phosphate 600 mg/ 54 mls @ 100 mls/hr 01/19/21 05:00 01/19/21 06:50 Dextrose IV 01/26/21 04:59 Infused Q8H MYESHA Infusion Insulin Aspart 0 units 01/19/21 03:00 01/19/21 07:21 Insulin Aspart 100 Units/Ml 3 Ml Pen SC 02/18/21 02:59 2 units ACHS MYESHA Administration Insulin Glargine 15 units 01/19/21 09:00 01/19/21 08:16 Insulin Glargine Solostar 100 Units/Ml 3 Ml Pen SC 02/18/21 08:59 15 units BID MYESHA Administration Losartan Potassium 100 mg 01/19/21 09:00 01/19/21 08:17 Losartan Potassium 50 Mg Tab PO 02/18/21 08:59 100 mg DAILY MYESHA Administration Simvastatin 20 mg 01/19/21 09:00 01/19/21 08:17 Simvastatin 20 Mg Tab PO 02/18/21 08:59 20 mg DAILY MYESHA Administration Past Medical History Medical History (Updated 01/19/21 @ 10:48 by Doug Silveira MD) CKD (chronic kidney disease) History of high cholesterol History of insulin dependent diabetes mellitus Hypertension Obesities, morbid Past Surgical History Surgical History (Updated 01/19/21 @ 10:45 by Doug Silveira MD) History of incision and drainage Hx of section Social History Smoking Status: Never smoker Hx Alcohol Use: No Hx Substance Use: No Physical Exam Vital Signs Last Vital Signs Temp 36.7 C 01/19/21 07:55 Pulse 94 H 01/19/21 07:55 Resp 18 01/19/21 07:55 BP 107/57 L 01/19/21 07:55 Pulse Ox 94 01/19/21 07:55 Testing Laboratory Results 01/19/21 08:03 01/19/21 08:03 PT 11.9 Seconds (9.0-12.0) 01/18/21 22:08 INR 1.2 (0.9-1.1) H 01/18/21 22:08 APTT 31.6 Seconds (21.0-31.0) H 01/18/21 22:08 01/19/21 02:54 Gram Stain - Final Foot,Right 01/19/21 01/19/21 07:09 03:20 POC Glucose 181 H 156 H Electrocardiogram Date: 01/18/21 Findings: + NSR @ (83)
[2021-01-19 11:12] LABS: Uric Acid Crystals Urine Present (None Prsent)
[2021-01-19 11:15] LABS: Bacteria Urine Automated 2+ (Negative)
[2021-01-19] MEDS ORDERED: BUPIVACAINE 0.5 % 5 MG/1 ML MPF 30ML VIAL ONE ×2 (11:52→12:58)
[2021-01-19] MEDS ORDERED: MIDAZOLAM HCL 1 MG/ML 2ML VIAL ONE (12:09)
[2021-01-19] MEDS ORDERED: LIDOCAINE 2% 2 ML VIAL/AMP(20MG/ML) INFIL ONE (12:09)
[2021-01-19] MEDS ORDERED: fentaNYL citrate 100 MCG/2 ML VIAL ONE (12:09)
[2021-01-19] MEDS ORDERED: PROPOFOL IV EMULSION 10 MG/ML 20 ML VIAL IV ONE (12:09)
--- NOTE | 2021-01-19 12:10 | History & Physical Bridge Note ---
Date of Service January 19, 2021 History & Physical Bridge Note I have examined the patient, reviewed the History & Physical and in the interval since the performance of the History & Physical I have noted the following changes of clinical significance: Will require surgery right foot and right thigh as detailed on the surgical consent.
--- NOTE | 2021-01-19 12:16 | Orthopedic Consultation ---
Date of Consultation January 19, 2021 Assessment & Plan (1) Osteomyelitis of fifth toe of right foot: The exam findings and imaging results were reviewed with the patient. She has been kept n.p.o. since admission so she was taken to the OR today for a right foot fifth toe amputation, resection fifth metatarsal head, evacuation abscess lateral foot, tenosynovectomy extensor tendon of the fifth toe. All potential risks, benefits, complications, alternatives, and rehab have been discussed with the patient and she wishes to proceed. She will be nonweightbearing on the right lower extremity at all times. We discussed the importance of nonweightbearing to allow the heel ulcer as well as the lateral foot incision to heal properly. We discussed potential further testing after the procedure to evaluate the severity of the peripheral vascular disease in her right lower leg to assess her healing capability. (2) Osteomyelitis of ankle and foot: (3) Tenosynovitis of foot and ankle: (4) Abscess of right foot: (5) Diabetic ulcer of right foot: History of Present Illness Reason for Consultation: Right foot wounds Attending Physician: Mariela Remy, History of Present Illness This is a patient who has had chronic wounds of the right foot at the lateral aspect of the fifth metatarsal and the plantar aspect of the heel for at least 6 months. She states it may be closer to 1 year. Her has been the one treating the wounds and changing dressings. She states that her PCP has been aware of the wounds and has directed there wound care. At one time she would use antibiotic ointment for 2 weeks at a time and then break from the ointment and then do it again. She has not had any improvements of the wound. 3 days ago, she is unable to ambulate on the right lower extremity secondary to pain. She came to the ER last night and x-rays and a CT scan noted erosion of the bones within the fifth toe and the head of the fifth metatarsal. We were consulted for surgical management of the right foot. Allergies Allergy/AdvReac Type Severity Reaction Status Date / Time No Known Allergies Allergy NONE Unverified 01/18/21 21:47 Home Medications Medication Instructions Recorded Confirmed Type aspirin 81 mg tablet 81 mg PO DAILY 01/18/21 01/18/21 History atenolol 50 mg tablet 50 mg PO DAILY 01/18/21 01/18/21 History furosemide 20 mg tablet 20 mg PO DAILY PRN 01/18/21 01/18/21 History hydrochlorothiazide 25 mg tablet 25 mg PO DAILY 01/18/21 01/18/21 History insulin aspart U-100 100 unit/mL 0 unit SUBCUT UD 01/18/21 01/18/21 History subcutaneous solution (Novolog U-100 Insulin aspart) insulin glargine 100 unit/mL 30 unit SUBCUT BID 01/18/21 01/18/21 History subcutaneous solution (Lantus U-100 Insulin) losartan 100 mg tablet 100 mg PO DAILY 01/18/21 01/18/21 History metformin 500 mg tablet 1,000 mg PO BID 01/18/21 01/18/21 History simvastatin 20 mg tablet 20 mg PO DAILY 01/18/21 01/18/21 History Patient History Medical History CKD (chronic kidney disease) History of high cholesterol History of insulin dependent diabetes mellitus Hypertension Obesities, morbid Surgical History History of incision and drainage Hx of section Social History Smoking Status: Never smoker Hx Alcohol Use: No Hx Substance Use: No Preferred Language: Maori Communication Ability: Effective Show Card Writer Required: No Beliefs That Will Affect Care: None marital status: Current Living Situation: Spouse Current Living Situation Comment: lives with Other Information That Helps Us Care for You: No Feels Safe at Home: Yes Safety Concerns: Feels Safe At This Time Assistive Devices: Cane Physical Exam Constitutional: WD/WN, vitals as above + morbidly obese ENMT: external ear and nose normal, oropharynx normal Neck: trachea midline Musculoskeletal: Right foot: There is maceration of the lateral foot with sloughing of the skin along the head of the fifth metatarsal and fifth toe. Mild to moderate erythema. Severe serosanguineous drainage. At the plantar aspect of the heel, there is a 2.5 to 3 cm in diameter ulceration that is approximately 0.5 cm deep. There is granulation tissue noted. Moderate amount of serosanguinous drainage on the bandage. Neurologic: + abnormal touch/pain/proprioception Psychiatric: A+Ox3, euthymic affect Speech: normal rate/rhythm/volume of speech Lymphatic: no cervical or axillary lymphadenopathy Results & Data ([facility]) Vital Signs (Past 12 Hours) Vital Signs Temp Pulse Pulse Resp BP BP Pulse Ox 01/19/21 11:25 36.6 C 70 16 100/64 94 01/19/21 07:55 36.7 C 94 H 18 107/57 L 94 01/19/21 07:29 79 01/19/21 03:00 36.6 C 86 20 126/72 95 01/19/21 02:50 86 01/19/21 02:00 81 20 122/69 96 01/19/21 01:33 81 22 90 01/19/21 01:00 84 21 157/85 H 91 01/19/21 00:30 80 20 120/[address] results of the right foot reviewed. There is erosion of the bones of the fifth toe as well as the fifth metatarsal head. There is not appear to be any erosion of the bone at the calcaneus.
[2021-01-19] MEDS ORDERED: HYDROmorphone INJ 1 MG/ML SYRINGE IV PRN (12:22)
[2021-01-19] MEDS ORDERED: ATROPINE SULFATE 0.1 MG/ML 10ML SYR IV PRN (12:22)
[2021-01-19] MEDS ORDERED: GLYCOPYRROLATE 0.2 MG/ML VIAL ONE ×2 (12:52→14:01)
[2021-01-19] MEDS ORDERED: NEOSTIGMINE METHYLSULFATE 1 MG/ML 10ML VIAL ONE (12:52)
[2021-01-19] MEDS ORDERED: ONDANSETRON INJ 2 MG/ML 2 ML VIAL ONE (12:52)
[2021-01-19] MEDS ORDERED: ROCURONIUM BROMIDE 10 MG/ML 5 ML VIAL IV ONE (12:52)
[2021-01-19] MEDS ORDERED: ePHEDrine sulfate 50 MG/ML SYR ONE (13:23)
--- NOTE | 2021-01-19 13:39 | Post Operative Brief Note ---
Immediate Post Op Note v1 Date of Surgery January 19, 2021 Pre & Post Diagnosis Operation Date: 01/19/21 11:00 Pre-Op Diagnosis: Osteomyelitis of fifth metatarsal of right foot Diabetic neuropathic ulcer lateral forefoot (2.7cm x 1.7cm x 0.2cm) Osteomyelitis proximal phalanx fifth toe Septic tenosynovitis of fifth extensor tendon right foot Abscess of right foot Diabetic neuropathic ulcer of right heel ( 2.8cm x 1.6 x 0.3cm) Right proximal medial thigh ulcer (7cm x 3.2cm x 1.7cm) Postop diagnosis: Osteomyelitis of fifth metatarsal of right foot Diabetic neuropathic ulcer lateral forefoot (2.7cm x 1.7cm x 0.2cm) Osteomyelitis proximal phalanx fifth toe Septic tenosynovitis of fifth extensor tendon right foot Abscess of right foot Diabetic neuropathic ulcer of right heel ( 2.8cm x 1.6 x 0.3cm) Right proximal medial thigh ulcer (7cm x 3.2cm x 1.7cm) I identified the patient and participated in the time-out.: Yes Procedure Operation Date: 01/19/21 11:00 Procedure: Resection fifth metatarsal head and shaft of right foot due to osteomyelitis Irrigation and debridement diabetic neuropathic ulcer lateral forefoot (2.7cm x 1.7cm x 0.2cm) including skin, subcutaneous tissue, fascia and flexor tendon Resection partial proximal phalanx fifth toe due to osteomyelitis Debridement, partial resection and tenosynovectomy septic tenosynovitis of fifth extensor tendon right foot Incision and drainage abscess of right foot Irrigation debridement diabetic neuropathic ulcer of right heel ( 2.8cm x 1.6 x 0.3cm) including skin, subcutaneous tissue and fascia Irrigation debridement right proximal medial thigh ulcer (7cm x 3.2cm x 1.7cm) including skin, dermis and subcutaneous tissue Surgeon Hermilo Montalvo DO Depositing Machine Operator Tre Villegas PA-C Estimated Blood Loss 5 Findings Consistent with Post-Op Diagnosis Specimens Aerobic anaerobic Gram stain abscess right foot deep Tissue and subcutaneous fat for pathological analysis Aerobic anaerobic Gram stain right proximal medial thigh ulceration Bone for pathological assessment for osteomyelitis fifth metatarsal right Anesthesia Type General Regional Complications none Disposition Accompanied Patient To Recovery: Yes
--- NOTE | 2021-01-19 14:33 | Anesthesiology Progress Note ---
Date of Service January 19, 2021 Anesthesia Post Procedure Vital Signs Vital Signs: Temp Pulse Pulse Pulse Resp BP BP 01/19/21 14:25 36.3 C L 75 32 H 112/81 01/19/21 14:15 80 30 H 143/76 H 01/19/21 14:05 81 20 109/87 01/19/21 13:56 36.0 C L 84 16 117/73 01/19/21 11:25 36.6 C 70 16 100/64 01/19/21 07:55 36.7 C 94 H 18 107/57 L 01/19/21 07:29 79 01/19/21 03:00 36.6 C 86 20 126/72 01/19/21 02:50 86 01/19/21 02:00 81 20 122/69 01/19/21 01:33 81 22 01/19/21 01:00 84 21 157/85 H 01/19/21 00:30 80 20 120/65 01/19/21 00:00 78 20 105/55 L 01/18/21 23:34 79 18 108/46 L 01/18/21 23:12 18 01/18/21 23:11 80 18 01/18/21 23:01 80 18 114/73 01/18/21 22:51 01/18/21 22:33 83 21 01/18/21 21:31 86 22 106/59 L 01/18/21 21:20 37.5 C 88 20 136/65 Pulse Ox 01/19/21 14:25 94 01/19/21 14:15 93 01/19/21 14:05 92 01/19/21 13:56 92 01/19/21 11:25 94 01/19/21 07:55 94 01/19/21 07:29 01/19/21 03:00 95 01/19/21 02:50 01/19/21 02:00 96 01/19/21 01:33 90 01/19/21 01:00 91 01/19/21 00:30 91 01/19/21 00:00 94 01/18/21 23:34 95 01/18/21 23:12 95 01/18/21 23:11 95 01/18/21 23:01 95 01/18/21 22:51 94 01/18/21 22:33 01/18/21 21:31 95 01/18/21 21:20 91 Transfer of Care Handoff Completed per policy Notes Mental Status: alert / awake / arousable Patient Amnestic to Procedure: Yes Nausea / Vomiting: adequately controlled Pain: adequately controlled Airway Patency, RR, SpO2: stable & adequate BP & HR: stable & adequate Hydration State: stable & adequate Anesthetic Complications: no major complications apparent
[2021-01-19] MEDS ORDERED: MAGNESIUM HYDROXIDE SUSP 30 ML UDC PO PRN (14:59)
[2021-01-19] MEDS ORDERED: METOCLOPRAMIDE HCL INJ 5 MG/ML 2 ML VIAL IV PRN (14:59)
[2021-01-19] MEDS ORDERED: ALUMINUM/MAGNESIUM SUSP 30 ML UDC PO PRN (14:59)
[2021-01-19] MEDS ORDERED: PHARMACY GLYCEMIC MGMT CONSULT PRN (14:59)
[2021-01-19] MEDS ORDERED: diphenhydrAMINE Capsule 25 MG CAP PO PRN (14:59)
[2021-01-19] MEDS ORDERED: oxyCODONE HCL IR 5 MG TAB (IMMEDIATE RELEASE) PO PRN (14:59)
[2021-01-19] MEDS ORDERED: HYDROmorphone INJ 0.5 MG/0.5 ML SYR IV PRN (14:59)
[2021-01-19] MEDS ORDERED: bisacodyL 10 MG SUPP PR PRN (14:59)
[2021-01-19] MEDS ORDERED: NALOXONE HCL 0.4 MG/1 ML VIAL/CARP IV PRN (14:59)
[2021-01-19] MEDS ORDERED: INSULIN GLARGINE SOLOSTAR 100 UNITS/ML 3 ML PEN SC ONE (15:15)
--- NOTE | 2021-01-19 15:18 | Pharmacy Report ---
Pharmacy Glycemic Short Note 2 - Date of Service January 19, 2021 - Glycemic Short BSG Results (Last 24 hours): 01/18/21 01/19/21 01/19/21 22:08 03:20 07:09 Glucose 148 H POC Glucose 156 H 181 H 01/19/21 01/19/21 01/19/21 08:03 12:06 13:54 Glucose 183 H POC Glucose 174 H 194 H OUTPATIENT ANTIDIABETIC REGIMEN: * Lantus 30 units SQ BID * NovoLog per scale * metformin * A1c pending 01/19/21 ASSESSMENT: * 65yo T2DM female with unknown degree of outpatient control - A1c pending * Pt s/p Resection fifth metatarsal head and shaft of right foot due to osteomyelitis with I&D. * Will increase back to outpatient dosing of Lantus 30 units SQ BID now that diet resumed post-op * Tighten CF/CR to corresponding CF/CR to 60 units of basal insulin * Tight glycemic control crucial for wound healing. Titrate based on BSG trends to maintain goal BSGs of <180 (ideally <150 mg/dl) to prevent post-op infectious complications. * Could also consider zinc, vitamin C and protein supplementation to promote wound healing in wound care patients Zinc: 50 mg elemental zinc (e.g., 220 mg zinc sulfate) PO three times per day until wound healed. Vitamin C: 500-3000mg/day depending on whether it causes soft stool, then back off Protein: may consult dietary for protein supplement recommendation. Could consider boost glucose control supplement PLAN FOR INPATIENT GLYCEMIC CONTROL: * Hold outpatient oral diabetes medications * Basal insulin * Lantus 30 units SQ BID * Bolus insulin * NovoLog per scale ACHS or Q6hrs while NPO * Goal Range: Low 110 mg/dL - High 140 mg/dL * Correction Factor: 10 mg/dL/unit * Nutritional / Prandial insulin per carb ratio of 1 unit per 4 grams CHO consumed PLAN FOR DISCHARGE: * TBD based on A1c
[2021-01-19] MEDS: ACETAMINOPHEN 500 MG TAB PO SCH ×3 (15:45→21:24)
--- NOTE | 2021-01-19 17:45 | Ultrasound Report ---
US arterial duplex LE RT CLINICAL HISTORY: 65 years-old Female presenting with peripheral vascular disease/nonhealing ulcers. TECHNIQUE: Real-time grayscale ultrasound imaging of the arteries of the right lower extremity was pe rformed for a focused evaluation at the site of clinical concern. COMPARISON: None. FINDINGS: Right popliteal, dorsalis pedis, posterior tibialis and anterior tibialis arteries are not visualized due to severe edema, morbid obesity and postoperative state after surgery of the right knee and righ t foot performed today. Patent arteries of the right thigh are seen with mostly monophasic flow and peak systolic velocity up to 148 cm/s which is seen within mid aspect of the right femoral artery. IMPRESSION: 1. Patent arteries of the right thigh with peak systolic velocity of 148 cm/s and mostly monophasic flow. 2. The popliteal artery and arteries of the calf are not seen due to edema is detailed above. ACT 112: Negative or not required by law.: Electronically signed by: Delilah Elkins DO 01/19/2021 5:44 PM
[2021-01-19] MEDS: DAPTOmycin 525 MG in SYRINGE 0 ML IV SCH (17:46)
--- NOTE | 2021-01-19 19:20 | Operative Report (OR) ---
DATE OF PROCEDURE: 01/19/2021. PREOPERATIVE DIAGNOSES: 1. Right foot osteomyelitis of the 5th metatarsal head and shaft, right foot. 2. Osteomyelitis of the proximal phalanx of the right 5th toe. 3. Diabetic neuropathic ulcer on the lateral forefoot measuring 2.7 x 1.7 x 0.2 cm. 4. Septic tenosynovitis of the 5th extensor tendon, right foot. 5. Abscess proximal lateral right foot. 6. Diabetic neuropathic ulcer of the right heel measuring 2.8 x 1.6 x 0.3 cm deep. 7. Right proximal medial thigh ulceration measuring 7.0 x 3.2 x 1.7 cm deep. POSTOPERATIVE DIAGNOSES: 1. Right foot osteomyelitis of the 5th metatarsal head and shaft, right foot. 2. Osteomyelitis of the proximal phalanx of the right 5th toe. 3. Diabetic neuropathic ulcer on the lateral forefoot measuring 2.7 x 1.7 x 0.2 cm. 4. Septic tenosynovitis of the 5th extensor tendon, right foot. 5. Abscess proximal lateral right foot. 6. Diabetic neuropathic ulcer of the right heel measuring 2.8 x 1.6 x 0.3 cm deep. 7. Right proximal medial thigh ulceration measuring 7.0 x 3.2 x 1.7 cm deep. PROCEDURES PERFORMED: 1. Right foot resection, fifth metatarsal head and shaft due to osteomyelitis. 2. Irrigation and debridement diabetic neuropathic ulcer, lateral forefoot 2.7 x 1.7 x 0.2 cm deep i ncluding skin, subcutaneous tissue, fascia and flexor tendon. 3. Resection partial proximal phalanx 5th toe due to osteomyelitis. 4. Debridement, partial resection and tenosynovectomy of septic tenosynovitis, right 5th extensor te ndon. 5. Incision and drainage abscess of the proximal lateral right foot. 6. Irrigation and debridement diabetic neuropathic ulcer of right heel, 2.8 x 1.6 x 0.3 cm including skin, subcutaneous tissue and fascia. 7. Irrigation and debridement of right proximal medial thigh ulcer measuring 7.0 x 3.2 x 1.7 cm incl uding skin, dermis and subcutaneous tissue. SURGEON: Hermilo Montalvo DO. COMPLIANCE ASSISTANT: Tre Villegas PA-C. who was present for patient positioning, sterile prep and drape, management of retractors and instruments. He was present through the critical portions of the case in cluding wound closure, application of sterile dressing and transport of the patient to recovery. ANESTHESIA: General, regional. SPECIMENS: 1. Aerobic, anaerobic, Gram stain, abscess, right foot, deep. 2. Tissue and subcutaneous fat. 3. Pathological analysis right thigh. 4. Aerobic, anaerobic, Gram stain right proximal medial thigh ulceration. 5. Bone for pathological assessment for osteomyelitis, fifth metatarsal, right foot. DRAINS: None. COMPLICATIONS: None. BLOOD LOSS: 5 mL PERTINENT HISTORY: This is a 65-year-old female who had a chronic progressive and worsening ulcerati ons of the right foot at the lateral aspect of the 5th metatarsal and the plantar aspect of the heel for at least 6 months to a year. She also developed medial thigh ulceration over a month ago. The p makayla has been caring for these primarily at home with her assisting her and changing dressi ngs. She states that her primary care physician has been aware of the ulcerations and foot problems then directed her wound care through the office. She would use antibiotic ointments for 2 weeks at a time and then take a break in home and then do it again. She has had worsening of the symptoms and then finally 3 days ago she was unable to ambulate on the right lower extremity secondary to pain. S he then presented to the Emergency Department last night. X-rays and CT scan noted erosion of the willian ne within the 5th metatarsal head and proximal phalanx. She was then admitted to the hospitalist torrie wyman, placed on IV antibiotics and orthopedics was consulted for further care and management. All potential risks, benefits, complications, alternatives, rehab, potential for incomplete relief sy mptoms, need for further surgery, DVT, PE, , persistent pain, swelling, scarring, weakness, neur ovascular injury, wound complications, need for further surgery and/or amputation were discussed with the patient. The patient decided to proceed with the procedure as indicated. DESCRIPTION OF PROCEDURE: The patient was taken to the operative suite and placed on the operating r oom table. After review of consent and identification of proper site, the patient was anesthetized, LMA was placed. Right lower extremity was then sterilely prepped and draped in the usual fashion. T here was no tourniquet used due to the proximal medial thigh ulceration and limitation in blood flow distally. After sterile prep and drape was completed, the surgical timeout was performed, and then s harp debridement of the right medial thigh ulceration measuring 7.0 x 3.2 x 1.7 cm deep was then perf ormed with a 15 blade scalpel, forceps and a large curette. This includes skin, dermis and subcutane ous fat and tissue. Several punctate bleeders were cauterized with electrocautery, foul odor was not ed. Deep cultures were obtained. Aerobic, anaerobic, Gram stain and then slough and eschar was then sharply excised and passed off as specimen for pathology, in addition to some of the fascial tissue and subcutaneous fat. After the necrotic tissue was debrided down to a more healthy appearing tissue , pulsatile lavage 3 liters with Ancef was then used to cleanse the medial thigh ulceration which was markedly improved in its appearance. This was then covered with a sterile dry sponge for later care . Next, attention was then directed down to the foot. The ulceration of the plantar lateral forefoot m easuring 2.7 x 1.7 x 0.2 cm deep was then sharply debrided using a 15-blade scalpel and curette to en courage bleeding and resection of necrotic tissue and foul smelling slough. This included skin, subc utaneous tissue, fascia and down to the plantar flexor tendon, which was also debrided sharply with a #15 blade scalpel. After all necrotic tissue was resected. Pulse lavage with Ancef was then used t o cleanse the site until clear. Next, attention was then directed toward the heel ulceration on the plantar aspect of the heel measur ing 2.8 x 1.6 x 0.3 cm in depth. This was then sharply debrided using a 15-blade scalpel and curette with sharp excision of necrotic tissue including partial skin, subcutaneous tissue and local fascia until all necrotic debris was resected. Once this was completed, pulsatile lavage with Ancef was the n used to cleanse the site until clear. Next, the 15 blade scalpel was then used to make an incision over the dorsal lateral aspect of the 5th metatarsal head region and extending slightly distally ove r the proximal phalanx of the fifth toe proximal phalanx. Incision was carefully deepened through sk in and subcutaneous tissue. Meticulous hemostasis was achieved with electrocautery. The abscess was encountered proximally and suppurative septic tenosynovitis was noted at the 5th extensor tendon. T his was then sharply debrided proximally; however, the more distal one third of the extensor tendon w as completely necrotic with a mop end appearance and was 90% torn. This was sharply excised with a 1 5 blade scalpel, thus performing a partial resection of the fifth extensor tendon. Next, an incision was then deepened through the joint capsule to the level of the 5th metatarsal head and distal aspect of the fifth metatarsal. There was noted to be dissolution of the contour of the fifth metatarsal head as predicted by CT scan and x-ray. Hohmann retractors were placed around the m ore proximal aspect of the fifth metatarsal, and this was then sharply excised using a sagittal saw. The remainder of the bone was then freed from the site using an osteotome and a mallet and this was then passed off as specimen for pathological assessment of the bone for osteomyelitis. Next, upon fu rther proximal dissection abscess fluid pocket was noted lateral proximal aspect of the foot, superfi cial to the fascia. This was then evacuated and culture was obtained. Aerobic, anaerobic, Gram stai n of this abscess fluid. Next, after all necrotic-appearing bone and tissue was resected sharply with a 15 blade scalpel, the pulsatile lavage 3 liters in total including Ancef added was then used to lavage the site of resectio n of the fifth metatarsal head, proximal phalanx, fifth metatarsal head heel ulcer until clear after 3 liters, completed. Next, the fifth proximal phalanx was then partially resected using a rongeur. This was noted to be softened as predicted with a CT and x-ray. Next, pulse lavage was then used to cleanse the site until clear and then the dorsal lateral forefoot incision was then loosely closed wi th 3-0 nylon. A sterile compressive dressing was applied, wrapped with an Bashir wrap to the foot. José Miguel rile compressive dressing was applied to the medial thigh. After a local injection was performed steph und the incision sites on the lateral foot and the medial thigh. The patient was then awakened and jae archibald to recovery in stable condition. Job ID: [id number]
--- NOTE | 2021-01-19 19:42 | Communication Note ---
Date of Service: January 19, 2021 Mrs. Yao is a 65-year-old obese diabetic female presenting with a significant lower extremity infection on her right leg. She was placed on broad-spectrum antibiotics overnight and orthopedics saw herThis morning. They recommended surgical management and she was taken immediately to the OR. She underwent a right foot resection with fifth metatarsal head and shaft resection due to osteomyelitis. She underwent irrigation and debridement of her diabetic neuropathic ulcer on the lateral forefoot. She had a partial resection and tenosynovectomy of the right fifth extensor tendon with an incision and drainage of an abscess on the proximal lateral right foot. In addition to the right lower extremity she had irrigation and debridement of a right proximal medial thigh ulcer measuring 7 x 3 x 2 cm. Postoperatively she is doing well and tolerating p.o. She is hemodynamically stable with a blood pressure of 103/63, pulse is 75, normal respirations with an oxygen saturation of 92% on 2 LPM and she is afebrile at 36.9 C. She denies any significant pain at this point. She is on continued IV fluids at 80 cc an hour which have been stopped. She is hemodynamically stable and mentating well. She is in no acute distress. She is morbidly obese. Cardiac exam reveals normal S1/S2 with no evidence of murmur gallops or rubs. Lungs are clear to auscultation bilaterally. She does appear somewhat diaphoretic and is on supplemental oxygen. She denies being on supplemental oxygen at home. Plan for consult infectious disease for help with antibiotic management, PT/OT and wound care per orthopedics. Continue recovery postoperatively. Mariela Remy DO [facility] hospitalist Current Inpatient Medications Acetaminophen (Acetaminophen 325 Mg Tab) 650 mg PO Q4H PRN PRN Reason: Pain or Fever Stop: 02/18/21 02:48 Acetaminophen (Acetaminophen 500 Mg Tab) 1,000 mg PO Q8 MYESHA Stop: 02/18/21 14:58 Last Admin: 01/19/21 17:46 Dose: 1,000 mg Documented by: Al Hydrox/Mg Hydrox/Simethicone (Aluminum/Magnesium Susp 30 Ml Udc) 15 ml PO Q4H PRN PRN Reason: Heartburn Stop: 02/18/21 14:58 Aspirin (Aspirin 81 Mg Ectab) 81 mg PO DAILY MYESHA Stop: 02/18/21 08:59 Last Admin: 01/19/21 08:16 Dose: 81 mg Documented by: Atenolol (Atenolol 50 Mg Tablet) 50 mg PO DAILY MYESHA Stop: 02/18/21 08:59 Last Admin: 01/19/21 08:16 Dose: 50 mg Documented by: Bisacodyl (Bisacodyl 10 Mg Supp) 10 mg CO DAILY PRN PRN Reason: Constipation Stop: 02/18/21 14:58 Dextrose (Dextrose 50% 50 Ml Syringe) 25 - 50 ml IV UD PRN; Protocol PRN Reason: Hypoglycemia Protocol Stop: 02/18/21 02:59 Diphenhydramine HCl (Diphenhydramine Capsule 25 Mg Cap) 25 mg PO Q8H PRN PRN Reason: Itching Stop: 02/18/21 14:58 Docusate Sodium (Docusate Sodium 100 Mg Cap) 100 mg PO BID MYESHA Stop: 02/18/21 20:59 Glucagon (Glucagon For Inj 1 Mg Vial) 1 mg IM UD PRN; Protocol PRN Reason: Hypoglycemia Protocol Stop: 02/18/21 02:59 Glucose (Glucose 40% Gel 15 Gm Tube) 15 - 30 gm PO UD PRN; Protocol PRN Reason: Hypoglycemia Protocol Stop: 02/18/21 02:59 Glucose (Glucose 10 Tabs/Tube) 4 - 8 tabs PO UD PRN; Protocol PRN Reason: Hypoglycemia Protocol Stop: 02/18/21 02:59 Heparin Sodium (Porcine) (Heparin Sod 5,000 Unit/0.5 Ml Vial) 7,500 units SQ Q8 MYESHA Stop: 02/18/21 05:59 Hydrochlorothiazide (Hydrochlorothiazide 25 Mg Tab) 25 mg PO DAILY MYESHA Stop: 02/18/21 08:59 Last Admin: 01/19/21 08:16 Dose: 25 mg Documented by: Hydromorphone HCl (Hydromorphone Inj 1 Mg/Ml Syringe) 0.25 mg IV Q5M PRN PRN Reason: PACU Use Only-Pain Stop: 01/19/21 20:23 Hydromorphone HCl (Hydromorphone Inj 0.5 Mg/0.5 Ml Syr) 0.5 mg IV Q3H PRN PRN Reason: Pain or Pre PT Stop: 02/02/21 14:58 Piperacillin Sod/Tazobactam (Sod 4.5 gm/ Dextrose) 120 mls @ 30 mls/hr IV Q8H [facility]; Protocol Stop: 01/21/21 03:59 Last Infusion: 01/19/21 14:58 Dose: Infused Documented by: Clindamycin Phosphate 600 mg/ (Dextrose) 54 mls @ 100 mls/hr IV Q8H [facility] Stop: 01/26/21 04:59 Last Infusion: 01/19/21 14:59 Dose: Infused Documented by: Daptomycin 525 mg/ Syringe 10.5 mls @ 5.25 mls/min IV Q24H [facility]; Protocol Stop: 03/02/21 15:59 Last Admin: 01/19/21 17:46 Dose: 5.25 mls/min Documented by: Insulin Aspart (Insulin Aspart 100 Units/Ml 3 Ml Pen) 0 units SC ACHS [facility] Stop: 02/18/21 02:59 Last Admin: 01/19/21 17:46 Dose: 10 units Documented by: Insulin Glargine (Insulin Glargine Solostar 100 Units/Ml 3 Ml Pen) 30 units SC BID [facility] Stop: 02/18/21 20:59 Losartan Potassium (Losartan Potassium 50 Mg Tab) 100 mg PO DAILY [facility] Stop: 02/18/21 08:59 Last Admin: 01/19/21 08:17 Dose: 100 mg Documented by: Magnesium Hydroxide (Magnesium Hydroxide Susp 30 Ml Udc) 30 ml PO Q6H PRN PRN Reason: Constipation Stop: 02/18/21 14:58 Metoclopramide HCl (Metoclopramide Hcl Inj 5 Mg/Ml 2 Ml Vial) 10 mg IV Q6H PRN PRN Reason: Nausea And Vomiting Stop: 02/18/21 14:58 Miconazole Nitrate (Miconazole Nitrate Powder 43 Gm) 1 appln EXT PRN PRN PRN Reason: Affected Skin Folds Stop: 02/18/21 06:46 Miscellaneous (Carbohydrates For Hypoglycemia ) 15 - 30 gm PO UD PRN PRN Reason: Hypoglycemia Treatment Stop: 02/18/21 02:59 Miscellaneous Information (Piperacill/Tazobac Consult Active) 1 ea N/A UD PRN PRN Reason: Consult Stop: 02/17/21 21:40 Miscellaneous Information (Pharmacy Glycemic Mgmt Consult) 1 ea N/A UD PRN PRN Reason: Consult Stop: 02/18/21 14:58 Miscellaneous Information (Daptomycin Consult Active) 1 ea N/A UD PRN PRN Reason: Consult Stop: 02/18/21 15:39 Multivitamins (Multivitamin Tab) 1 tab PO QAM MYESHA Stop: 02/19/21 08:59 Naloxone HCl (Naloxone Hcl 0.4 Mg/1 Ml Vial/Carp) 0.1 mg IV Q5M PRN PRN Reason: Oversedation/Resp Depression Stop: 02/18/21 14:58 Nitroglycerin (Nitroglycerin Sl 0.4 Mg/Tab Tab) 0.4 mg SL UD PRN PRN Reason: Chest Pain Stop: 02/18/21 02:48 Ondansetron HCl (Ondansetron Inj 2 Mg/Ml 2 Ml Vial) 4 mg IV Q6H PRN PRN Reason: Nausea Stop: 02/18/21 02:48 Ondansetron HCl (Ondansetron Inj 2 Mg/Ml 2 Ml Vial) 4 mg IV ONCE PRN PRN Reason: PACU Use Only-Nausea/Vomiting Stop: 01/19/21 20:24 Oxycodone HCl (Oxycodone Hcl Ir 5 Mg Tab (Immediate Release)) 5 - 10 mg PO Q4H PRN PRN Reason: Pain or Pre PT Stop: 02/02/21 14:58 Polyethylene Glycol (Polyethylene (Miralax) 17 Gm Pack) 17 gm PO DAILY PRN PRN Reason: Constipation Stop: 02/18/21 02:48 Sennosides (Senna 8.6 Mg Tab) 17.2 mg PO HS MYESHA Stop: 02/18/21 20:59 Simvastatin (Simvastatin 20 Mg Tab) 20 mg PO DAILY MYESHA Stop: 02/18/21 08:59 Last Admin: 01/19/21 08:17 Dose: 20 mg Documented by:
--- NOTE | 2021-01-19 20:34 | Electrocardiogram Report ---
Test Reason : Blood Pressure : / mmHG Vent. Rate : 083 BPM Atrial Rate : 083 BPM P-R Int : 132 ms QRS Dur : 084 ms QT Int : 378 ms P-R-T Axes : 038 -31 045 degrees QTc Int : 444 ms Poor data quality, interpretation may be adversely affected Normal sinus rhythm Left axis deviation Low voltage QRS Abnormal ECG No previous ECGs available Confirmed by Randy Matson ([id number]) on 01/19/2021 8:34:47 PM Referred By: REFERRED SELF Confirmed By:Randy Matson
--- NOTE | 2021-01-19 21:13 | Magnetic Resonance Report ---
MR ankle RT wo con CLINICAL HISTORY: 65 years-old Female with Rule out osteomyelitis calcaneus. COMPARISON: None. TECHNIQUE: Multiplanar, multi sequence MRI of the right ankle was performed without contrast. FINDINGS: Irregularity of the distal aspect of the medial malleolus with prominent surrounding soft tissue dallin a might represent fracture (10/24). Patchy areas of high T2 bone marrow signal is seen within talus, calcaneus and tarsal bones . Extens low degenerative changes of the tarsal joints are seen. No destructive lesion of the calcaneus or cuneiform and cuboid bones seen to suggest fracture or ost eomyelitis, however evaluation is suboptimal due to lack of IV contrast. Severe surrounding soft tissue edema is seen. There is fluid signal surrounding the extensor digitorum longus tendon consistent with tenosynovitis. Areas of gas collection that was seen within this region on recent CT is not well visualized by MR jae quintanilla. IMPRESSION: No evidence of osteomyelitis involving calcaneal bone. Evaluation is suboptimal due to lack of IV con trast. Tenosynovitis involving extensor digitorum longus tendon. Severe overlying soft tissue edema is seen. Extensive degenerative changes of the tarsal joints. ACT 112: Negative or not required by law. The above report was generated using voice recognition software. It may contain grammatical, syntax o r spelling errors. Electronically signed by: Delilah Elkins DO 01/20/2021 8:32 AM
[2021-01-19] MEDS: DOCUSATE SODIUM 100 MG CAP PO SCH (21:20)
[2021-01-19] MEDS: HEPARIN SOD 5,000 UNIT/0.5 ML VIAL SQ SCH (21:20)
[2021-01-19] MEDS: SENNA 8.6 MG TAB PO SCH (21:20)
[2021-01-19] MEDS: INSULIN GLARGINE SOLOSTAR 100 UNITS/ML 3 ML PEN SC SCH (21:23)
[2021-01-19] MEDS ORDERED: VANCOMYCIN HCL 1,500 MG in SODIUM CHLORIDE 0.9% 500 ML IV SCH (23:00)
[2021-01-20] MEDS ORDERED: SODIUM CHLORIDE 0.9% 1000ML 1,000 ML IV SCH (04:15)
[2021-01-20] MEDS: PIPERACILLIN/TAZOBACTAM 4.5 GM in DEXTROSE 5% 100 ML IV SCH ×3 (04:22→22:10)
[2021-01-20] MEDS: CLINDAMYCIN 600 MG in DEXTROSE 5% 50 ML IV SCH ×3 (04:24→22:10)
[2021-01-20] MEDS: HEPARIN SOD 5,000 UNIT/0.5 ML VIAL SQ SCH (05:25)
[2021-01-20] MEDS: ACETAMINOPHEN 500 MG TAB PO SCH ×3 (05:28→23:10)
[2021-01-20] MEDS ORDERED: DIGOXIN 125 MCG in SYRINGE 9.5 ML IV STA (06:18)
[2021-01-20] MEDS: SODIUM CHLORIDE 0.9% 1000ML 1,000 ML IV SCH ×3 (06:24→23:55)
[2021-01-20 07:09] LABS: Hemoglobin 11.2 g/dL (12.0-16.0); Mean Corpuscular Hemoglobin 26.1 pg (25-34); Mean Corpuscular Hgb Conc 31.1 g/dL (32-36); Mean Corpuscular Volume 83.9 fL (80-100); Mean Platelet Volume 10.6 fL (7.4-10.4); Platelet Count 464 K/uL (130-400); RDW Coefficient of Variation 18.2 % (11.5-14.5); RDW Standard Deviation 55.6 fL (36.4-46.3); Red Blood Count 4.29 M/uL (4.2-5.4)
[2021-01-20 07:19] LABS: INR 1.2 (0.9-1.1); Partial Thromboplastin Ratio 1.2; Partial Thromboplastin Time 32.5 Seconds (21.0-31.0); Prothrombin Time 12.2 Seconds (9.0-12.0)
[2021-01-20 07:34] LABS: Estimated Average Glucose 177 mg/dl; Hemoglobin A1C 7.8 % (4.5-5.6)
[2021-01-20 07:44] LABS: BUN Creatinine Ratio 15.7 (10-20); Calcium 8.5 mg/dl (8.5-10.1); Creatinine Clr Calc Pharmacy 40.5 ml/min; Est GFR (African American) 32.1 ml/min; Est GFR (Non-African American) 27.7 ml/min; Potassium 4.1 mmol/L (3.5-5.1)
[2021-01-20] MEDS: HEPARIN SODIUM/DEXTROSE 25,000 UNITS/500 ML BAG IV SCH ×2 (07:57→23:55)
--- NOTE | 2021-01-20 07:57 | XRay Report ---
XR chest 1V portable HISTORY: 65 years-old Female congestion? Acute shortness of breath COMPARISON: Chest radiograph 01/18/2021 TECHNIQUE: Portable AP view of the chest FINDINGS: Cardiomediastinal and hilar silhouettes are unchanged. Calcified plaque of the thoracic aorta. No pne umothorax, pleural effusion or overt pulmonary edema. Degenerative changes of the shoulders and spine . IMPRESSION: No acute process. ACT 112: Negative or not required by law. The above report was generated using voice recognition software. It may contain grammatical, syntax o r spelling errors. Electronically signed by: Vipul Silvestre M.D. 01/20/2021 7:56 AM
[2021-01-20] MEDS: MULTIVITAMIN TAB PO SCH (07:58)
[2021-01-20] MEDS: DOCUSATE SODIUM 100 MG CAP PO SCH ×2 (07:59→22:42)
[2021-01-20] MEDS: INSULIN GLARGINE SOLOSTAR 100 UNITS/ML 3 ML PEN SC SCH ×2 (07:59→22:16)
[2021-01-20] MEDS: ASPIRIN 81 MG ECTAB PO SCH (08:02)
[2021-01-20] MEDS: INSULIN ASPART 100 UNITS/ML 3 ML PEN SC SCH ×4 (08:08→22:15)
--- NOTE | 2021-01-20 08:18 | Cardiology Consultation ---
Date of Consultation January 20, 2021 Assessment & Plan (1) Diabetic ulcer of right foot: (2) Obesities, morbid: (3) CKD (chronic kidney disease): (4) Diabetes: (5) PAF (paroxysmal atrial fibrillation): For now I would recommend supportive care. She has no previous significant history of heart disease but given her medical history I think we have to assume that she has ischemic heart disease. She had a short run of PAF but is currently in sinus rhythm. I would continue IV heparin for now and her beta-nakita. We will follow him with you during her hospital stay. History of Present Illness Attending Physician: Marieal Remy, DO History of Present Illness This is a 65-year-old morbidly obese diabetic female who was admitted and underwent debridements of her right fifth metatarsal, heel and thigh due to nonhealing ulcers. She has no significant cardiac history just longstanding diabetes and chronic renal insufficiency. On the telemetry, the patient is mostly in sinus rhythm but did on one EKG reveal a rate controlled atrial fibrillation. Past medical history: Type 2 diabetes mellitus with hemoglobin A1c goal of less than 8.0% ([facility]) Body mass index (BMI) of 50.0 to 59.9 in adult ([facility]) Chronic kidney disease, stage 3a Dyslipidemia Ocular hypertension HTN, goal below 130/80 Venous stasis dermatitis of both lower extremities Type 2 diabetes mellitus with diabetic dermatitis ([facility]) Allergies Allergy/AdvReac Type Severity Reaction Status Date / Time No Known Allergies Allergy NONE Unverified 01/18/21 21:47 Home Medications Medication Instructions Recorded Confirmed Type aspirin 81 mg tablet 81 mg PO DAILY 01/18/21 01/18/21 History atenolol 50 mg tablet 50 mg PO DAILY 01/18/21 01/18/21 History furosemide 20 mg tablet 20 mg PO DAILY PRN 01/18/21 01/18/21 History hydrochlorothiazide 25 mg tablet 25 mg PO DAILY 01/18/21 01/18/21 History insulin aspart U-100 100 unit/mL 0 unit SUBCUT UD 01/18/21 01/18/21 History subcutaneous solution (Novolog U-100 Insulin aspart) insulin glargine 100 unit/mL 30 unit SUBCUT BID 01/18/21 01/18/21 History subcutaneous solution (Lantus U-100 Insulin) losartan 100 mg tablet 100 mg PO DAILY 01/18/21 01/18/21 History metformin 500 mg tablet 1,000 mg PO BID 01/18/21 01/18/21 History simvastatin 20 mg tablet 20 mg PO DAILY 01/18/21 01/18/21 History Patient History Medical History CKD (chronic kidney disease) History of high cholesterol History of insulin dependent diabetes mellitus Hypertension Obesities, morbid Surgical History History of incision and drainage Hx of section Social History Smoking Status: Never smoker Hx Alcohol Use: No Hx Substance Use: No Preferred Language: Ethiopian Communication Ability: Effective Adventure Challenge Instructor Required: No Beliefs That Will Affect Care: None marital status: Current Living Situation: Spouse Current Living Situation Comment: lives with Other Information That Helps Us Care for You: No Feels Safe at Home: Yes Safety Concerns: Feels Safe At This Time Assistive Devices: Glasses and Oxygen - Continuous Review of Systems Review of Systems: Review of Systems: See HPI for pertinent positives. All other 10 point review of systems are negative. Physical Exam Physical Exam: General: no acute distress and stated age Head: normocephalic, no masses, lesions, tenderness or abnormalities Eyes: conjunctiva are pink and non-injected, sclera clear Neck: supple, no adenopathy, no bruits, normal jugular venous pulse, no hepatojugular reflux Chest: normal shape and normal respiratory effort Lungs: clear to auscultation and percussion Cardiac Exam: - regular rate & rhythm, no murmurs gallops or rubs - normal S1, normal S2 Pulses: 2(+) throughout Abdomen: abdomen soft, non-tender, no abnormal masses and no hepatosplenomegaly Musculoskeletal: no gait disturbance, no joint inflammation, no deforming arthritis Extremities: Appears the patient has chronic stasis dermatitis. Wounds on the right lateral foot, heel and thigh Neuro: grossly normal exam Results & Data ([facility]) Vital Signs (Past 12 Hours) Vital Signs Temp Pulse Pulse Resp BP Pulse Ox 01/20/21 07:22 36.8 C 68 20 95/58 L 98 01/20/21 06:40 72 01/20/21 05:51 120 H 91/61 L 01/20/21 03:50 131 H 90/53 L 95 01/20/21 03:45 128 H 01/20/21 03:29 36.7 C 94 H 16 93/57 L 94 01/19/21 22:20 82 01/19/21 22:15 36.8 C 91 H 24 95/57 L 93 01/19/21 22:13 75 L Laboratory Results Laboratory Results - last 24 hr 01/19/21 01/19/21 01/19/21 08:03 08:45 12:06 WBC RBC Hgb Hct MCV MCH MCHC RDW Std Deviation RDW Coeff of Gurmeet Plt Count MPV PT INR APTT PTT Ratio Sodium Potassium Chloride Carbon Dioxide Anion Gap BUN Creatinine Est Cr Clr Drug Dosing Est GFR ( Amer) Est GFR (Non-Af Amer) BUN/Creatinine Ratio Glucose POC Glucose 174 H Estimat Average Glucose 177 Hemoglobin A1c 7.8 H Lactate Calcium Total Creatine Kinase Troponin I Urine Color Yellow Urine Appearance Cloudy A Urine pH 5.0 Ur Specific [place] 1.017 Urine Protein 1+ H Urine Glucose (UA) Negative Urine Ketones Negative Urine Blood Trace H Urine Nitrite Negative Urine Bilirubin Negative Urine Urobilinogen Negative Ur Leukocyte Esterase Trace H Urine WBC (Auto) 10-30 H Urine RBC (Auto) 0-4 U Hyaline Cast (Auto) 1-5 U Epithel Cells (Auto) >30 H Urine Bacteria (Auto) 2+ H Uric Acid Crystals Present A Urine Yeast Not Reportable 01/19/21 01/19/21 01/19/21 13:54 17:22 17:31 WBC RBC Hgb Hct MCV MCH MCHC RDW Std Deviation RDW Coeff of Gurmeet Plt Count MPV PT INR APTT PTT Ratio Sodium Potassium Chloride Carbon Dioxide Anion Gap BUN Creatinine Est Cr Clr Drug Dosing Est GFR ( Amer) Est GFR (Non-Af Amer) BUN/Creatinine Ratio Glucose POC Glucose 194 H 185 H 188 H Estimat Average Glucose Hemoglobin A1c Lactate Calcium Total Creatine Kinase Troponin I Urine Color Urine Appearance Urine pH Ur Specific [place] Urine Protein Urine Glucose (UA) Urine Ketones Urine Blood Urine Nitrite Urine Bilirubin Urine Urobilinogen Ur Leukocyte Esterase Urine WBC (Auto) Urine RBC (Auto) U Hyaline Cast (Auto) U Epithel Cells (Auto) Urine Bacteria (Auto) Uric Acid Crystals Urine Yeast 01/19/21 01/20/21 01/20/21 20:00 03:58 06:37 WBC RBC Hgb Hct MCV MCH MCHC RDW Std Deviation RDW Coeff of Gurmeet Plt Count MPV PT INR APTT PTT Ratio Sodium 140 Potassium 4.1 D Chloride 104 Carbon Dioxide 30 Anion Gap 7.0 BUN 29 H Creatinine 1.85 H D Est Cr Clr Drug Dosing 40.5 Est GFR ( Amer) 32.1 Est GFR (Non-Af Amer) 27.7 BUN/Creatinine Ratio 15.7 Glucose 136 H POC Glucose 172 H 134 H Estimat Average Glucose Hemoglobin A1c Lactate Calcium 8.5 Total Creatine Kinase 36 Troponin I Urine Color Urine Appearance Urine pH Ur Specific [place] Urine Protein Urine Glucose (UA) Urine Ketones Urine Blood Urine Nitrite Urine Bilirubin Urine Urobilinogen Ur Leukocyte Esterase Urine WBC (Auto) Urine RBC (Auto) U Hyaline Cast (Auto) U Epithel Cells (Auto) Urine Bacteria (Auto) Uric Acid Crystals Urine Yeast 01/20/21 01/20/21 01/20/21 06:37 06:37 06:37 WBC 14.30 H RBC 4.29 Hgb 11.2 L Hct 36.0 L MCV 83.9 MCH 26.1 MCHC 31.1 L RDW Std Deviation 55.6 H RDW Coeff of Gurmeet 18.2 H Plt Count 464 H MPV 10.6 H PT INR APTT PTT Ratio Sodium Potassium Chloride Carbon Dioxide Anion Gap BUN Creatinine Est Cr Clr Drug Dosing Est GFR ( Amer) Est GFR (Non-Af Amer) BUN/Creatinine Ratio Glucose POC Glucose Estimat Average Glucose Hemoglobin A1c Lactate 1.1 Calcium Total Creatine Kinase Troponin I 0.016 Urine Color Urine Appearance Urine pH Ur Specific [place] Urine Protein Urine Glucose (UA) Urine Ketones Urine Blood Urine Nitrite Urine Bilirubin Urine Urobilinogen Ur Leukocyte Esterase Urine WBC (Auto) Urine RBC (Auto) U Hyaline Cast (Auto) U Epithel Cells (Auto) Urine Bacteria (Auto) Uric Acid Crystals Urine Yeast 01/20/21 06:37 WBC RBC Hgb Hct MCV MCH MCHC RDW Std Deviation RDW Coeff of Gurmeet Plt Count MPV PT 12.2 H INR 1.2 H APTT 32.5 H PTT Ratio 1.2 Sodium Potassium Chloride Carbon Dioxide Anion Gap BUN Creatinine Est Cr Clr Drug Dosing Est GFR ( Amer) Est GFR (Non-Af Amer) BUN/Creatinine Ratio Glucose POC Glucose Estimat Average Glucose Hemoglobin A1c Lactate Calcium Total Creatine Kinase Troponin I Urine Color Urine Appearance Urine pH Ur Specific [place] Urine Protein Urine Glucose (UA) Urine Ketones Urine Blood Urine Nitrite Urine Bilirubin Urine Urobilinogen Ur Leukocyte Esterase Urine WBC (Auto) Urine RBC (Auto) U Hyaline Cast (Auto) U Epithel Cells (Auto) Urine Bacteria (Auto) Uric Acid Crystals Urine Yeast Medications Administered Current Inpatient Medications Acetaminophen (Acetaminophen 325 Mg Tab) 650 mg PO Q4H PRN PRN Reason: Pain or Fever Stop: 02/18/21 02:48 Acetaminophen (Acetaminophen 500 Mg Tab) 1,000 mg PO Q8 [facility] Stop: 02/18/21 14:58 Last Admin: 01/20/21 05:28 Dose: Not Given Documented by: Al Hydrox/Mg Hydrox/Simethicone (Aluminum/Magnesium Susp 30 Ml Udc) 15 ml PO Q4H PRN PRN Reason: Heartburn Stop: 02/18/21 14:58 Aspirin (Aspirin 81 Mg Ectab) 81 mg PO DAILY MYESHA Stop: 02/18/21 08:59 Last Admin: 01/20/21 08:02 Dose: 81 mg Documented by: Atenolol (Atenolol 50 Mg Tablet) 50 mg PO DAILY MYES[facility] Stop: 02/18/21 08:59 Last Admin: 01/20/21 09:50 Dose: Not Given Documented by: Bisacodyl (Bisacodyl 10 Mg Supp) 10 mg NM DAILY PRN PRN Reason: Constipation Stop: 02/18/21 14:58 Dextrose (Dextrose 50% 50 Ml Syringe) 25 - 50 ml IV UD PRN; Protocol PRN Reason: Hypoglycemia Protocol Stop: 02/18/21 02:59 Diphenhydramine HCl (Diphenhydramine Capsule 25 Mg Cap) 25 mg PO Q8H PRN PRN Reason: Itching Stop: 02/18/21 14:58 Docusate Sodium (Docusate Sodium 100 Mg Cap) 100 mg PO BID MYESHA Stop: 02/18/21 20:59 Last Admin: 01/20/21 07:59 Dose: 100 mg Documented by: Glucagon (Glucagon For Inj 1 Mg Vial) 1 mg IM UD PRN; Protocol PRN Reason: Hypoglycemia Protocol Stop: 02/18/21 02:59 Glucose (Glucose 40% Gel 15 Gm Tube) 15 - 30 gm PO UD PRN; Protocol PRN Reason: Hypoglycemia Protocol Stop: 02/18/21 02:59 Glucose (Glucose 10 Tabs/Tube) 4 - 8 tabs PO UD PRN; Protocol PRN Reason: Hypoglycemia Protocol Stop: 02/18/21 02:59 Hydrochlorothiazide (Hydrochlorothiazide 25 Mg Tab) 25 mg PO DAILY [facility] Stop: 02/18/21 08:59 Last Admin: 01/20/21 09:50 Dose: Not Given Documented by: Hydromorphone HCl (Hydromorphone Inj 0.5 Mg/0.5 Ml Syr) 0.5 mg IV Q3H PRN PRN Reason: Pain or Pre PT Stop: 02/02/21 14:58 Piperacillin Sod/Tazobactam (Sod 4.5 gm/ Dextrose) 120 mls @ 30 mls/hr IV Q8H [facility]; Protocol Stop: 01/21/21 03:59 Last Admin: 01/20/21 04:22 Dose: 30 mls/hr Documented by: Clindamycin Phosphate 600 mg/ (Dextrose) 54 mls @ 100 mls/hr IV Q8H [facility] Stop: 01/26/21 04:59 Last Infusion: 01/20/21 04:57 Dose: Infused Documented by: Daptomycin 525 mg/ Syringe 10.5 mls @ 5.25 mls/min IV Q24H [facility]; Protocol Stop: 03/02/21 15:59 Last Admin: 01/19/21 17:46 Dose: 5.25 mls/min Documented by: Sodium Chloride (Nss 1000ml) 1,000 mls @ 125 mls/hr IV .Q8H [facility] Stop: 02/19/21 06:14 Last Admin: 01/20/21 06:24 Dose: 125 mls/hr Documented by: Heparin Sodium/Dextrose (Heparin Sodium/Dextrose) 25,000 units in 500 mls @ 31 mls/hr IV .Q16H8M [facility]; Protocol Stop: 02/19/21 06:14 Last Admin: 01/20/21 07:57 Dose: 1,550 units/hr, 31 mls/hr Documented by: Insulin Aspart (Insulin Aspart 100 Units/Ml 3 Ml Pen) 0 units SC ACHS [facility] Stop: 02/18/21 02:59 Last Admin: 01/20/21 08:08 Dose: 13 units Documented by: Insulin Glargine (Insulin Glargine Solostar 100 Units/Ml 3 Ml Pen) 30 units SC BID [facility] Stop: 02/18/21 20:59 Last Admin: 01/20/21 07:59 Dose: 30 units Documented by: Losartan Potassium (Losartan Potassium 50 Mg Tab) 100 mg PO DAILY [facility] Stop: 02/18/21 08:59 Last Admin: 01/20/21 09:50 Dose: Not Given Documented by: Magnesium Hydroxide (Magnesium Hydroxide Susp 30 Ml Udc) 30 ml PO Q6H PRN PRN Reason: Constipation Stop: 02/18/21 14:58 Metoclopramide HCl (Metoclopramide Hcl Inj 5 Mg/Ml 2 Ml Vial) 10 mg IV Q6H PRN PRN Reason: Nausea And Vomiting Stop: 02/18/21 14:58 Miconazole Nitrate (Miconazole Nitrate Powder 43 Gm) 1 appln EXT PRN PRN PRN Reason: Affected Skin Folds Stop: 02/18/21 06:46 Miscellaneous (Carbohydrates For Hypoglycemia ) 15 - 30 gm PO UD PRN PRN Reason: Hypoglycemia Treatment Stop: 02/18/21 02:59 Miscellaneous Information (Piperacill/Tazobac Consult Active) 1 ea N/A UD PRN PRN Reason: Consult Stop: 02/17/21 21:40 Miscellaneous Information (Pharmacy Glycemic Mgmt Consult) 1 ea N/A UD PRN PRN Reason: Consult Stop: 02/18/21 14:58 Miscellaneous Information (Daptomycin Consult Active) 1 ea N/A UD PRN PRN Reason: Consult Stop: 02/18/21 15:39 Multivitamins (Multivitamin Tab) 1 tab PO QAM [facility] Stop: 02/19/21 08:59 Last Admin: 01/20/21 07:58 Dose: 1 tab Documented by: Naloxone HCl (Naloxone Hcl 0.4 Mg/1 Ml Vial/Carp) 0.1 mg IV Q5M PRN PRN Reason: Oversedation/Resp Depression Stop: 02/18/21 14:58 Nitroglycerin (Nitroglycerin Sl 0.4 Mg/Tab Tab) 0.4 mg SL UD PRN PRN Reason: Chest Pain Stop: 02/18/21 02:48 Ondansetron HCl (Ondansetron Inj 2 Mg/Ml 2 Ml Vial) 4 mg IV Q6H PRN PRN Reason: Nausea Stop: 02/18/21 02:48 Oxycodone HCl (Oxycodone Hcl Ir 5 Mg Tab (Immediate Release)) 5 - 10 mg PO Q4H PRN PRN Reason: Pain or Pre PT Stop: 02/02/21 14:58 Polyethylene Glycol (Polyethylene (Miralax) 17 Gm Pack) 17 gm PO DAILY PRN PRN Reason: Constipation Stop: 02/18/21 02:48 Sennosides (Senna 8.6 Mg Tab) 17.2 mg PO HS [facility] Stop: 02/18/21 20:59 Last Admin: 01/19/21 21:20 Dose: 17.2 mg Documented by: Simvastatin (Simvastatin 20 Mg Tab) 20 mg PO DAILY [facility] Stop: 02/18/21 08:59 Last Admin: 01/19/21 08:17 Dose: 20 mg Documented by:
--- NOTE | 2021-01-20 08:30 | Electrocardiogram Report ---
Test Reason : Blood Pressure : / mmHG Vent. Rate : 118 BPM Atrial Rate : 118 BPM P-R Int : 000 ms QRS Dur : 094 ms QT Int : 344 ms P-R-T Axes : 000 -38 097 degrees QTc Int : 482 ms Atrial fibrillation with rapid ventricular response Left axis deviation Low voltage QRS Incomplete right bundle branch block Poor R wave progression, consider anterior MD vs. lead placement vs. LVH Abnormal ECG When compared with ECG of 18-JAN-2021 21:55, Atrial fibrillation has replaced Sinus rhythm HR has increased by 35 bpm Confirmed by Anselmo Blanco ([id number]) on 01/20/2021 8:29:21 AM Referred By: REFERRED SELF Confirmed By:Anselmo Blanco
--- NOTE | 2021-01-20 08:33 | Electrocardiogram Report ---
Test Reason : Blood Pressure : / mmHG Vent. Rate : 121 BPM Atrial Rate : 238 BPM P-R Int : 000 ms QRS Dur : 100 ms QT Int : 366 ms P-R-T Axes : -86 -22 040 degrees QTc Int : 519 ms Atrial fibrillation with rapid ventricular response Low voltage QRS Poor R wave progression, consider anterior CA vs. lead placement vs. LVH Abnormal ECG When compared with ECG of 20-JAN-2021 04:06, No significant change Confirmed by Anselmo Blanco ([id number]) on 01/20/2021 8:32:56 AM Referred By: REFERRED SELF Confirmed By:Anselmo Blanco
--- NOTE | 2021-01-20 08:42 | Hospitalist Progress Note ---
Date of Service January 20, 2021 Assessment & Plan Admission and Anticipated Discharge Date Admission Date: January 19, 2021 Subjective Early in morning patient went into rapid a flutter. patient asymptomatic. Blood pressure on lower side. Low urine out put. One litre fluid bolus given and started on iv NS@125ml/hr. ordered troponin, lactic acid with am labs. Ordered echo. Ordered one dose of iv digoxin, iv heparin low dose, echo and cardio consult. transferred to PCU. Results & Data Results & Data ([facility]) Vital Signs (Past 12 Hours) Vital Signs Temp Pulse Pulse Resp BP BP Pulse Ox 01/20/21 08:21 69 37 H 96/82 L 01/20/21 08:04 68 25 H 78/58 L 97 01/20/21 07:22 36.8 C 68 20 95/58 L 98 01/20/21 07:19 71 24 01/20/21 07:00 70 01/20/21 06:40 72 01/20/21 05:51 120 H 91/61 L 01/20/21 03:50 131 H 90/53 L 95 01/20/21 03:45 128 H 01/20/21 03:29 36.7 C 94 H 16 93/57 L 94 01/19/21 22:20 82 01/19/21 22:15 36.8 C 91 H 24 95/57 L 93 01/19/21 22:13 75 L
[2021-01-20] MEDS: LOSARTAN POTASSIUM 50 MG TAB PO SCH (09:50)
[2021-01-20] MEDS: hydroCHLOROthiazide 25 MG TAB PO SCH (09:50)
[2021-01-20] MEDS: ATENOLOL 50 MG TABLET PO SCH (09:50)
--- NOTE | 2021-01-20 11:21 | Orthopedic Progress Note ---
Date of Service January 20, 2021 Assessment & Plan (1) Osteomyelitis of fifth toe of right foot: Plan: Postop day 1 status post ; 1. Right foot resection, fifth metatarsal head and shaft due to osteomyelitis. 2. Irrigation and debridement diabetic neuropathic ulcer, lateral forefoot 2.7 x 1.7 x 0.2 cm deep including skin, subcutaneous tissue, fascia and flexor tendon. 3. Resection partial proximal phalanx 5th toe due to osteomyelitis. 4. Debridement, partial resection and tenosynovectomy of septic tenosynovitis, right 5th extensor tendon. 5. Incision and drainage abscess of the proximal lateral right foot. 6. Irrigation and debridement diabetic neuropathic ulcer of right heel, 2.8 x 1.6 x 0.3 cm including skin, subcutaneous tissue and fascia. 7. Irrigation and debridement of right proximal medial thigh ulcer measuring 7.0 x 3.2 x 1.7 cm including skin, dermis and subcutaneous tissue. In discussion with wound care team, plans for wound VAC to the right medial thigh wound and also to the right heel wound. Regular dressings to the lateral right foot wound and ulcer. We will continue to watch drainage from the lateral foot wound for now. Plan for daily dressing changes with that wound. Plan for changing the wound vacs on Wednesday. Cultures from the right foot and right medial thigh wounds showing rare gram- positive cocci. Continue current antibiotics. Admission and Anticipated Discharge Date Admission Date: January 19, 2021 Subjective Postop day 1 Patient sitting up in bed awake and alert. No complaints at this time. Antoinette Carvajal RN from wound care currently has dressings off of the right lower extremity and thigh. Patient in fairly good spirits this morning. No complaints. Physical Exam Physical Exam: Right foot lateral incision intact with a little bit of thickened bloody drainage that I can actually continue to express out of the wound and small amounts. No erythema around the wound itself. No foul odor. Plantar ulcer at the fifth MTP site with a pink base. No purulence. Measuring about 5 mm in depth. Heel ulcer with pink base and no purulence. Measures about 4 mm. Medial thigh wound with no purulence with mild erythema that goes deep into the subcutaneous tissues with no overt purulence noted. Results & Data ([facility]) Vital Signs (Past 12 Hours) Vital Signs Temp Pulse Pulse Resp BP BP Pulse Ox 01/20/21 08:21 69 37 H 96/82 L 01/20/21 08:04 68 25 H 78/58 L 97 01/20/21 07:22 36.8 C 68 20 95/58 L 98 01/20/21 07:19 71 24 01/20/21 07:00 70 01/20/21 06:40 72 01/20/21 05:51 120 H 91/61 L 01/20/21 03:50 131 H 90/53 L 95 01/20/21 03:45 128 H 01/20/21 03:29 36.7 C 94 H 16 93/57 L 94 Diagnostic Findings rangel: ALEXI HAYES Acct: [id number] Status: ADM IN : 1955 [facility] Date: 01/19/21 Age: 65 Sex: F Dis Date: Loc: ICU Surgical [address] [place] [address]/Bed: [facility] Spec: [id number] Collected: 01/19/21 Received: 01/19/[address]: Hermilo MontalvoD.O. Copy To: Sergio Rodriguez MD Source: Foot,Right OV Order: Ordered: Aer/Fabi Cult/Sm Comments: Comment Deep right lateral foot Procedure Result Verified Site Gram Stain Final 01/19/21 Gram Stain Result Few WBCs Seen Rare Gram Positive Cocci Aero/Fabi Cult PENDING Name: ALEXI HAYES Acct: [id number] Status: ADM IN : 1955 [facility] Date: 01/19/21 Age: 65 Sex: F Dis Date: Loc: ICU Surgical [address] [place] [address]/Bed: [facility] Spec: [id number] Collected: 01/19/21 Received: 01/19/[address]: Hermilo MontalvoD.O. Copy To: Sergio Rodriguez MD Source: Thigh,Right OV Order: Ordered: Aer/Fabi Cult/Sm Comments: Comment #1. Medial thigh ulcer Procedure Result Verified Site Gram Stain Final 01/19/21 Gram Stain Result Rare WBCs Seen Rare Gram Positive Cocci Aero/Fabi Cult PENDING
--- NOTE | 2021-01-20 13:28 | Hospitalist Progress Note ---
Date of Service January 20, 2021 Assessment & Plan (1) PAF (paroxysmal atrial fibrillation): Plan: Converted back to sinus rhythm rather quickly overnight with dig therapy. She has presumed ischemic heart disease per Cardiology who recommends to cont heparin drip for now. Cont beta nakita as long as blood pressure improves somewhat (was in 80-90s systolic this am so atenolol was held). Cont telemetry monitoring. (2) Diabetic ulcer of right foot: Plan: Cont broad spectrum abx including Dapto, Zosyn an clindamycin pending further infectious disease recommendations. She is post op day #1 and doing well without significant pain or other complications. Cont current management. Wound vac in place. (3) Abscess of right foot: Plan: plan as above. (4) Osteomyelitis of fifth toe of right foot: Plan: plan as above. PT/OT per Orthopedics. (5) Post-operative state: (6) Cellulitis of right leg: Plan: Cont broad antibiotics as above. (7) Morbid obesity: (8) HTN (hypertension): Plan: Hypotensive this am. Holding Cozaar, Atenolol and HCTZ at this time. (9) DMII (diabetes mellitus, type 2): Plan: At goal glucose, cont current insulin regimen (10) DVT prophylaxis: Plan: Heparin drip full Code Cont telemetry Mariela Remy DO [facility] Hospitalist Admission and Anticipated Discharge Date Admission Date: January 19, 2021 Subjective Mrs. Yao is a 65-year-old obese diabetic female presenting with a significant osteomyelitis infection in her RLE s/p surgery yesterday. Overnight she developed rapid atrial flutter. She was treated with digoxin IV and started on low dose heparin. She has now converted back to sinus rhythm with a HR in the 60s. She denies significant pain in her wounds and has wound vacs in place. Wound care currently changing these She denies palpitations, SOB, chest pain or other symptoms at this time. Seen by Cardiology who was consulted. Review of Systems Review of Systems: At least ten systems were reviewed and negative except as indicated in HPI above. Physical Exam Physical Exam: CONSTITUTIONAL: morbid obesity, vitals as above, generally well-appearing, NAD EYES: normal conjunctivae, no scleral icterus ENT: external ear and nose normal, poor dentition, MMM NECK: trachea midline RESPIRATORY: clear to auscultation bilaterally, no crackles, rales or wheezes, normal respiratory effort CARDIOVASCULAR: regular rate and rhythm, S1 and 2 heard without murmurs, gallops or rubs, no JVD, no peripheral edema CHEST: inspection of chest was normal GASTROINTESTINAL: soft, nontender, protuberant, ND, no guarding MUSCULOSKELETAL: strength 5/5 throughout, head is normocephalic and atraumatic, neck supple, normal palpation of chest wall without tenderness SKIN: warm and dry NEUROLOGIC: CN 2-12 grossly intact, no sensory deficit, normal cognition, normal speech, no tremor PSYCHIATRIC: alert cooperative and oriented to person, place and time. Results & Data Results & Data ([facility]) Vital Signs (Past 12 Hours) Vital Signs Temp Pulse Pulse Resp BP BP Pulse Ox 01/20/21 08:21 69 37 H 96/82 L 01/20/21 08:04 68 25 H 78/58 L 97 01/20/21 07:22 36.8 C 68 20 95/58 L 98 01/20/21 07:19 71 24 01/20/21 07:00 70 01/20/21 06:40 72 01/20/21 05:51 120 H 91/61 L 01/20/21 03:50 131 H 90/53 L 95 01/20/21 03:45 128 H 01/20/21 03:29 36.7 C 94 H 16 93/57 L 94 Laboratory Results Short CBC 01/20/21 Range/Units 06:37 WBC 14.30 H (4.8-10.8) K/uL Hgb 11.2 L (12.0-16.0) g/dL Hct 36.0 L (37-47) % Plt Count 464 H (130-400) K/uL BMP 01/20/21 06:37 Sodium 140 Potassium 4.1 D Chloride 104 Carbon Dioxide 30 BUN 29 H Creatinine 1.85 H D Glucose 136 H Calcium 8.5 Cardiac Enzymes 01/20/21 01/20/21 01/20/21 Range/Units 06:37 06:37 10:18 Total Creatine Kinase 36 (26-192) U/L Troponin I 0.016 0.075 H* (0-0.045) ng/ml Medications Administered Current Inpatient Medications Acetaminophen (Acetaminophen 325 Mg Tab) 650 mg PO Q4H PRN PRN Reason: Pain or Fever Stop: 10/19/21 02:48 Acetaminophen (Acetaminophen 500 Mg Tab) 1,000 mg PO Q8 [facility] Stop: 02/18/21 14:58 Last Admin: 01/20/21 05:28 Dose: Not Given Documented by: Al Hydrox/Mg Hydrox/Simethicone (Aluminum/Magnesium Susp 30 Ml Udc) 15 ml PO Q4H PRN PRN Reason: Heartburn Stop: 02/18/21 14:58 Aspirin (Aspirin 81 Mg Ectab) 81 mg PO DAILY MYESHA Stop: 02/18/21 08:59 Last Admin: 01/20/21 08:02 Dose: 81 mg Documented by: Atenolol (Atenolol 50 Mg Tablet) 50 mg PO DAILY MYESHA Stop: 02/18/21 08:59 Last Admin: 01/20/21 09:50 Dose: Not Given Documented by: Bisacodyl (Bisacodyl 10 Mg Supp) 10 mg [place] DAILY PRN PRN Reason: Constipation Stop: 02/18/21 14:58 Dextrose (Dextrose 50% 50 Ml Syringe) 25 - 50 ml IV UD PRN; Protocol PRN Reason: Hypoglycemia Protocol Stop: 02/18/21 02:59 Diphenhydramine HCl (Diphenhydramine Capsule 25 Mg Cap) 25 mg PO Q8H PRN PRN Reason: Itching Stop: 02/18/21 14:58 Docusate Sodium (Docusate Sodium 100 Mg Cap) 100 mg PO BID MYESHA Stop: 02/18/21 20:59 Last Admin: 01/20/21 07:59 Dose: 100 mg Documented by: Glucagon (Glucagon For Inj 1 Mg Vial) 1 mg IM UD PRN; Protocol PRN Reason: Hypoglycemia Protocol Stop: 02/18/21 02:59 Glucose (Glucose 40% Gel 15 Gm Tube) 15 - 30 gm PO UD PRN; Protocol PRN Reason: Hypoglycemia Protocol Stop: 02/18/21 02:59 Glucose (Glucose 10 Tabs/Tube) 4 - 8 tabs PO UD PRN; Protocol PRN Reason: Hypoglycemia Protocol Stop: 02/18/21 02:59 Hydrochlorothiazide (Hydrochlorothiazide 25 Mg Tab) 25 mg PO DAILY MYSEHA Stop: 02/18/21 08:59 Last Admin: 01/20/21 09:50 Dose: Not Given Documented by: Hydromorphone HCl (Hydromorphone Inj 0.5 Mg/0.5 Ml Syr) 0.5 mg IV Q3H PRN PRN Reason: Pain or Pre PT Stop: 02/02/21 14:58 Piperacillin Sod/Tazobactam (Sod 4.5 gm/ Dextrose) 120 mls @ 30 mls/hr IV Q8H [facility] [place]; Protocol Stop: 01/21/21 03:59 Last Admin: 01/20/21 04:22 Dose: 30 mls/hr Documented by: Clindamycin Phosphate 600 mg/ (Dextrose) 54 mls @ 100 mls/hr IV Q8H [facility] [place] Stop: 01/26/21 04:59 Last Infusion: 01/20/21 04:57 Dose: Infused Documented by: Daptomycin 525 mg/ Syringe 10.5 mls @ 5.25 mls/min IV Q24H [facility] [place]; Protocol Stop: 03/02/21 15:59 Last Admin: 01/19/21 17:46 Dose: 5.25 mls/min Documented by: Sodium Chloride (Nss 1000ml) 1,000 mls @ 125 mls/hr IV .Q8H [facility] [place] Stop: 02/19/21 06:14 Last Admin: 01/20/21 06:24 Dose: 125 mls/hr Documented by: Heparin Sodium/Dextrose (Heparin Sodium/Dextrose) 25,000 units in 500 mls @ 31 mls/hr IV .Q16H8M [facility]; Protocol Stop: 02/19/21 06:14 Last Admin: 01/20/21 07:57 Dose: 1,550 units/hr, 31 mls/hr Documented by: Insulin Aspart (Insulin Aspart 100 Units/Ml 3 Ml Pen) 0 units SC ACHS [facility] [place] Stop: 02/18/21 02:59 Last Admin: 01/20/21 12:46 Dose: 13 units Documented by: Insulin Glargine (Insulin Glargine Solostar 100 Units/Ml 3 Ml Pen) 30 units SC BID [facility] Stop: 02/18/21 20:59 Last Admin: 01/20/21 07:59 Dose: 30 units Documented by: Losartan Potassium (Losartan Potassium 50 Mg Tab) 100 mg PO DAILY [facility] Stop: 02/18/21 08:59 Last Admin: 01/20/21 09:50 Dose: Not Given Documented by: Magnesium Hydroxide (Magnesium Hydroxide Susp 30 Ml Udc) 30 ml PO Q6H PRN PRN Reason: Constipation Stop: 02/18/21 14:58 Metoclopramide HCl (Metoclopramide Hcl Inj 5 Mg/Ml 2 Ml Vial) 10 mg IV Q6H PRN PRN Reason: Nausea And Vomiting Stop: 02/18/21 14:58 Miconazole Nitrate (Miconazole Nitrate Powder 43 Gm) 1 appln EXT PRN PRN PRN Reason: Affected Skin Folds Stop: 02/18/21 06:46 Miscellaneous (Carbohydrates For Hypoglycemia ) 15 - 30 gm PO UD PRN PRN Reason: Hypoglycemia Treatment Stop: 02/18/21 02:59 Miscellaneous Information (Piperacill/Tazobac Consult Active) 1 ea N/A UD PRN PRN Reason: Consult Stop: 02/17/21 21:40 Miscellaneous Information (Pharmacy Glycemic Mgmt Consult) 1 ea N/A UD PRN PRN Reason: Consult Stop: 02/18/21 14:58 Miscellaneous Information (Daptomycin Consult Active) 1 ea N/A UD PRN PRN Reason: Consult Stop: 02/18/21 15:39 Multivitamins (Multivitamin Tab) 1 tab PO QAM [facility]ESHA Stop: 02/19/21 08:59 Last Admin: 01/20/21 07:58 Dose: 1 tab Documented by: Naloxone HCl (Naloxone Hcl 0.4 Mg/1 Ml Vial/Carp) 0.1 mg IV Q5M PRN PRN Reason: Oversedation/Resp Depression Stop: 02/18/21 14:58 Nitroglycerin (Nitroglycerin Sl 0.4 Mg/Tab Tab) 0.4 mg SL UD PRN PRN Reason: Chest Pain Stop: 02/18/21 02:48 Ondansetron HCl (Ondansetron Inj 2 Mg/Ml 2 Ml Vial) 4 mg IV Q6H PRN PRN Reason: Nausea Stop: 02/18/21 02:48 Oxycodone HCl (Oxycodone Hcl Ir 5 Mg Tab (Immediate Release)) 5 - 10 mg PO Q4H PRN PRN Reason: Pain or Pre PT Stop: 02/02/21 14:58 Polyethylene Glycol (Polyethylene (Miralax) 17 Gm Pack) 17 gm PO DAILY PRN PRN Reason: Constipation Stop: 02/18/21 02:48 Sennosides (Senna 8.6 Mg Tab) 17.2 mg PO HS MYESHA Stop: 02/18/21 20:59 Last Admin: 01/19/21 21:20 Dose: 17.2 mg Documented by: Simvastatin (Simvastatin 20 Mg Tab) 20 mg PO DAILY MYESHA Stop: 02/18/21 08:59 Last Admin: 01/19/21 08:17 Dose: 20 mg Documented by:
[2021-01-20 14:23] LABS: Partial Thromboplastin Ratio 1.7; Partial Thromboplastin Time 44.8 Seconds (21.0-31.0)
[2021-01-20] MEDS: DAPTOmycin 525 MG in SYRINGE 0 ML IV SCH (15:15)
[2021-01-20] MEDS: Heparin IV Adult Wt-Based Low-Dose *NO* Bolus Protocol IV SCH (18:18)
[2021-01-20 21:28] LABS: Partial Thromboplastin Ratio 1.7
[2021-01-20] MEDS: SENNA 8.6 MG TAB PO SCH (22:42)
[2021-01-21] MEDS: CLINDAMYCIN 600 MG in DEXTROSE 5% 50 ML IV SCH ×3 (04:25→20:48)
[2021-01-21] MEDS: PIPERACILLIN/TAZOBACTAM 4.5 GM in DEXTROSE 5% 100 ML IV SCH ×3 (04:26→19:33)
[2021-01-21] MEDS: ACETAMINOPHEN 500 MG TAB PO SCH ×3 (04:59→20:52)
[2021-01-21 05:17] LABS: Partial Thromboplastin Ratio 1.7; Partial Thromboplastin Time 44.4 Seconds (21.0-31.0)
[2021-01-21 05:32] LABS: Creatinine Clr Calc Pharmacy 52.8 ml/min; Est GFR (African American) 44.2 ml/min; Est GFR (Non-African American) 38.1 ml/min
[2021-01-21] MEDS: INSULIN ASPART 100 UNITS/ML 3 ML PEN SC SCH ×4 (08:23→20:50)
[2021-01-21] MEDS: ASPIRIN 81 MG ECTAB PO SCH (08:24)
[2021-01-21] MEDS: MULTIVITAMIN TAB PO SCH (08:25)
[2021-01-21] MEDS: INSULIN GLARGINE SOLOSTAR 100 UNITS/ML 3 ML PEN SC SCH ×2 (08:25→20:50)
[2021-01-21] MEDS: DOCUSATE SODIUM 100 MG CAP PO SCH ×2 (08:36→20:52)
[2021-01-21] MEDS: SODIUM CHLORIDE 0.9% 1000ML 1,000 ML IV SCH (08:37)
--- NOTE | 2021-01-21 09:54 | Cardiology Progress Note ---
Date of Service January 21, 2021 Assessment & Plan (1) Diabetic ulcer of right foot: (2) Obesities, morbid: (3) CKD (chronic kidney disease): (4) Diabetes: (5) PAF (paroxysmal atrial fibrillation): Plan: The patient is markedly volume overloaded today. I am going to stop her IV fluids and give her a dose of IV Lasix. She takes 20 mg of p.o. Lasix at home which I will start today. Her blood pressure is adequate. She is currently off of her losartan which will probably have to be restarted at some point. Admission and Anticipated Discharge Date Admission Date: January 19, 2021 Subjective The patient had a long palpable night but is a little short of breath this morning and wheezing. Review of Systems Review of Systems: Review of Systems: See HPI for pertinent positives. All other 10 point review of systems are negative. Physical Exam Physical Exam: General: no acute distress and stated age Head: normocephalic, no masses, lesions, tenderness or abnormalities Eyes: conjunctiva are pink and non-injected, sclera clear Neck: supple, no adenopathy, no bruits, normal jugular venous pulse, no hepatojugular reflux Chest: normal shape and normal respiratory effort Lungs: clear to auscultation and percussion Cardiac Exam: - regular rate & rhythm, no murmurs gallops or rubs - normal S1, normal S2 Pulses: 2(+) throughout Abdomen: abdomen soft, non-tender, no abnormal masses and no hepatosplenomegaly Musculoskeletal: no gait disturbance, no joint inflammation, no deforming arthritis Extremities: Appears the patient has chronic stasis dermatitis. Wounds on the right lateral foot, heel and thigh Neuro: grossly normal exam Results & Data ([facility]) Vital Signs (Past 12 Hours) Vital Signs Temp Pulse Pulse Resp BP Pulse Ox 01/21/21 07:44 36.9 C 79 24 124/63 96 01/21/21 04:00 36.4 C 72 19 120/79 93 01/21/21 00:00 36.6 C 86 20 108/67 95 01/20/21 23:08 65 Laboratory Results Laboratory Results - last 24 hr 01/20/21 01/20/21 01/20/21 10:18 11:29 13:57 WBC RBC Hgb Hct MCV MCH MCHC Plt Count APTT 44.8 H PTT Ratio 1.7 Creatinine Est Cr Clr Drug Dosing Est GFR ( Amer) Est GFR (Non-Af Amer) POC Glucose 183 H Troponin I 0.075 H* 01/20/21 01/20/21 01/20/21 16:18 21:02 22:08 WBC RBC Hgb Hct MCV MCH MCHC Plt Count APTT 45.0 H PTT Ratio 1.7 Creatinine Est Cr Clr Drug Dosing Est GFR ( Amer) Est GFR (Non-Af Amer) POC Glucose 203 H 122 H Troponin I 01/21/21 01/21/21 01/21/21 04:44 04:44 04:45 WBC Pending RBC Pending Hgb Pending Hct Pending MCV Pending MCH Pending MCHC Pending Plt Count Pending APTT 44.4 H PTT Ratio 1.7 Creatinine 1.42 H D Est Cr Clr Drug Dosing 52.8 Est GFR ( Amer) 44.2 Est GFR (Non-Af Amer) 38.1 POC Glucose Troponin I 01/21/21 07:52 WBC RBC Hgb Hct MCV MCH MCHC Plt Count APTT PTT Ratio Creatinine Est Cr Clr Drug Dosing Est GFR ( Amer) Est GFR (Non-Af Amer) POC Glucose 144 H Troponin I Medications Administered Current Inpatient Medications Acetaminophen (Acetaminophen 325 Mg Tab) 650 mg PO Q4H PRN PRN Reason: Pain or Fever Stop: 02/18/21 02:48 Acetaminophen (Acetaminophen 500 Mg Tab) 1,000 mg PO Q8 [facility] Stop: 02/18/21 14:58 Last Admin: 01/21/21 04:59 Dose: Not Given Documented by: Al Hydrox/Mg Hydrox/Simethicone (Aluminum/Magnesium Susp 30 Ml Udc) 15 ml PO Q4H PRN PRN Reason: Heartburn Stop: 02/18/21 14:58 Aspirin (Aspirin 81 Mg Ectab) 81 mg PO DAILY [facility] Stop: 02/18/21 08:59 Last Admin: 01/21/21 08:24 Dose: 81 mg Documented by: Atenolol (Atenolol 50 Mg Tablet) 50 mg PO DAILY [facility] Stop: 02/18/21 08:59 Last Admin: 01/20/21 09:50 Dose: Not Given Documented by: Bisacodyl (Bisacodyl 10 Mg Supp) 10 mg [place] DAILY PRN PRN Reason: Constipation Stop: 02/18/21 14:58 Dextrose (Dextrose 50% 50 Ml Syringe) 25 - 50 ml IV UD PRN; Protocol PRN Reason: Hypoglycemia Protocol Stop: 02/18/21 02:59 Diphenhydramine HCl (Diphenhydramine Capsule 25 Mg Cap) 25 mg PO Q8H PRN PRN Reason: Itching Stop: 02/18/21 14:58 Docusate Sodium (Docusate Sodium 100 Mg Cap) 100 mg PO BID MYESHA Stop: 02/18/21 20:59 Last Admin: 01/21/21 08:36 Dose: 100 mg Documented by: Furosemide (Furosemide 20 Mg Tab) 20 mg PO QAM MYESHA Stop: 02/21/21 08:59 Glucagon (Glucagon For Inj 1 Mg Vial) 1 mg IM UD PRN; Protocol PRN Reason: Hypoglycemia Protocol Stop: 02/18/21 02:59 Glucose (Glucose 40% Gel 15 Gm Tube) 15 - 30 gm PO UD PRN; Protocol PRN Reason: Hypoglycemia Protocol Stop: 02/18/21 02:59 Glucose (Glucose 10 Tabs/Tube) 4 - 8 tabs PO UD PRN; Protocol PRN Reason: Hypoglycemia Protocol Stop: 02/18/21 02:59 Hydrochlorothiazide (Hydrochlorothiazide 25 Mg Tab) 25 mg PO DAILY MYESHA Stop: 02/18/21 08:59 Last Admin: 01/20/21 09:50 Dose: Not Given Documented by: Hydromorphone HCl (Hydromorphone Inj 0.5 Mg/0.5 Ml Syr) 0.5 mg IV Q3H PRN PRN Reason: Pain or Pre PT Stop: 02/02/21 14:58 Piperacillin Sod/Tazobactam (Sod 4.5 gm/ Dextrose) 120 mls @ 30 mls/hr IV Q8H [facility]; Protocol Stop: 01/28/21 23:59 Last Admin: 01/21/21 04:26 Dose: 30 mls/hr Documented by: Clindamycin Phosphate 600 mg/ (Dextrose) 54 mls @ 100 mls/hr IV Q8H [facility] Stop: 01/26/21 04:59 Last Infusion: 01/21/21 05:00 Dose: Infused Documented by: Daptomycin 525 mg/ Syringe 10.5 mls @ 5.25 mls/min IV Q24H [facility]; Protocol Stop: 03/02/21 15:59 Last Admin: 01/20/21 15:15 Dose: 5.25 mls/min Documented by: Heparin Sodium/Dextrose (Heparin Sodium/Dextrose) 25,000 units in 500 mls @ 37 mls/hr IV .[id number] [facility]; Protocol Stop: 02/19/21 06:14 Last Titration: 01/21/21 07:15 Dose: 1,850 units/hr, 37 mls/hr Documented by: Furosemide 40 mg/ Syringe 4 mls @ 4 mls/min IV ONE ONE Stop: 01/21/21 10:01 Insulin Aspart (Insulin Aspart 100 Units/Ml 3 Ml Pen) 0 units SC ACHS [facility] Stop: 02/18/21 02:59 Last Admin: 01/21/21 08:23 Dose: 8 units Documented by: Insulin Glargine (Insulin Glargine Solostar 100 Units/Ml 3 Ml Pen) 30 units SC BID [facility] Stop: 02/18/21 20:59 Last Admin: 01/21/21 08:25 Dose: 30 units Documented by: Losartan Potassium (Losartan Potassium 50 Mg Tab) 100 mg PO DAILY [facility] Stop: 02/18/21 08:59 Last Admin: 01/20/21 09:50 Dose: Not Given Documented by: Magnesium Hydroxide (Magnesium Hydroxide Susp 30 Ml Udc) 30 ml PO Q6H PRN PRN Reason: Constipation Stop: 02/18/21 14:58 Metoclopramide HCl (Metoclopramide Hcl Inj 5 Mg/Ml 2 Ml Vial) 10 mg IV Q6H PRN PRN Reason: Nausea And Vomiting Stop: 02/18/21 14:58 Miconazole Nitrate (Miconazole Nitrate Powder 43 Gm) 1 appln EXT PRN PRN PRN Reason: Affected Skin Folds Stop: 02/18/21 06:46 Miscellaneous (Carbohydrates For Hypoglycemia ) 15 - 30 gm PO UD PRN PRN Reason: Hypoglycemia Treatment Stop: 02/18/21 02:59 Miscellaneous Information (Piperacill/Tazobac Consult Active) 1 ea N/A UD PRN PRN Reason: Consult Stop: 02/17/21 21:40 Miscellaneous Information (Pharmacy Glycemic Mgmt Consult) 1 ea N/A UD PRN PRN Reason: Consult Stop: 02/18/21 14:58 Miscellaneous Information (Daptomycin Consult Active) 1 ea N/A UD PRN PRN Reason: Consult Stop: 02/18/21 15:39 Multivitamins (Multivitamin Tab) 1 tab PO QAM MYESHA Stop: 02/19/21 08:59 Last Admin: 01/21/21 08:25 Dose: 1 tab Documented by: Naloxone HCl (Naloxone Hcl 0.4 Mg/1 Ml Vial/Carp) 0.1 mg IV Q5M PRN PRN Reason: Oversedation/Resp Depression Stop: 02/18/21 14:58 Nitroglycerin (Nitroglycerin Sl 0.4 Mg/Tab Tab) 0.4 mg SL UD PRN PRN Reason: Chest Pain Stop: 02/18/21 02:48 Ondansetron HCl (Ondansetron Inj 2 Mg/Ml 2 Ml Vial) 4 mg IV Q6H PRN PRN Reason: Nausea Stop: 02/18/21 02:48 Oxycodone HCl (Oxycodone Hcl Ir 5 Mg Tab (Immediate Release)) 5 - 10 mg PO Q4H PRN PRN Reason: Pain or Pre PT Stop: 02/02/21 14:58 Polyethylene Glycol (Polyethylene (Miralax) 17 Gm Pack) 17 gm PO DAILY PRN PRN Reason: Constipation Stop: 02/18/21 02:48 Sennosides (Senna 8.6 Mg Tab) 17.2 mg PO HS [facility] Stop: 02/18/21 20:59 Last Admin: 01/20/21 22:42 Dose: 17.2 mg Documented by: Simvastatin (Simvastatin 20 Mg Tab) 20 mg PO DAILY [facility] Stop: 02/18/21 08:59 Last Admin: 01/19/21 08:17 Dose: 20 mg Documented by:
[2021-01-21] MEDS ORDERED: FUROSEMIDE 40 MG in SYRINGE 0 ML IV ONE (10:00)
[2021-01-21 10:05] LABS: Hematocrit (blood only) 35.4 % (37-47); Hemoglobin 11.1 g/dL (12.0-16.0); Mean Corpuscular Hemoglobin 26.4 pg (25-34); Mean Corpuscular Hgb Conc 31.4 g/dL (32-36); Mean Corpuscular Volume 84.3 fL (80-100); Mean Platelet Volume 10.9 fL (7.4-10.4); Platelet Count 475 K/uL (130-400); RDW Coefficient of Variation 18.7 % (11.5-14.5); RDW Standard Deviation 57.2 fL (36.4-46.3); White Blood Count 13.04 K/uL (4.8-10.8)
[2021-01-21 12:26] LABS: Partial Thromboplastin Ratio 1.4; Partial Thromboplastin Time 37.5 Seconds (21.0-31.0)
[2021-01-21] MEDS: HEPARIN SODIUM/DEXTROSE 25,000 UNITS/500 ML BAG IV SCH ×2 (14:03→20:56)
[2021-01-21] MEDS ORDERED: HEPARIN SOD (PORCINE) 1000 UNIT/ML IV ONE (14:30)
--- NOTE | 2021-01-21 14:32 | Pharmacy Report ---
Pharmacy Glycemic Short Note 2 - Date of Service January 21, 2021 - Glycemic Short BSG Results (Last 24 hours): 01/20/21 01/20/21 01/21/21 16:18 22:08 07:52 POC Glucose 203 H 122 H 144 H 01/21/21 11:38 POC Glucose 191 H OUTPATIENT ANTIDIABETIC REGIMEN: * Lantus 30 units SQ BID * NovoLog per scale * metformin * A1c pending 01/19/21 ASSESSMENT: 01/21: * Patient reasonably well controlled yesterday, receiving 104 units of insulin, 60 units of which were basal. * Fasting BSGs adequate, continue current lantus regimen. Post prandial BSGs slightly elevated, will tighten carb coverage. * Patient continues to tolerate a diet 01/19 * 65yo T2DM female with unknown degree of outpatient control - A1c pending * Pt s/p Resection fifth metatarsal head and shaft of right foot due to osteomyelitis with I&D. * Will increase back to outpatient dosing of Lantus 30 units SQ BID now that diet resumed post-op * Tighten CF/CR to corresponding CF/CR to 60 units of basal insulin * Tight glycemic control crucial for wound healing. Titrate based on BSG trends to maintain goal BSGs of <180 (ideally <150 mg/dl) to prevent post-op infectious complications. * Could also consider zinc, vitamin C and protein supplementation to promote wound healing in wound care patients Zinc: 50 mg elemental zinc (e.g., 220 mg zinc sulfate) PO three times per day until wound healed. Vitamin C: 500-3000mg/day depending on whether it causes soft stool, then back off Protein: may consult dietary for protein supplement recommendation. Could consider boost glucose control supplement PLAN FOR INPATIENT GLYCEMIC CONTROL: * Hold outpatient oral diabetes medications * Basal insulin * Lantus 30 units SQ BID * Bolus insulin * NovoLog per scale ACHS or Q6hrs while NPO * Goal Range: Low 110 mg/dL - High 140 mg/dL * Correction Factor: 10 mg/dL/unit * Nutritional / Prandial insulin per carb ratio of 1 unit per 3 grams CHO consumed PLAN FOR DISCHARGE: * TBD based on A1c
[2021-01-21] MEDS: DAPTOmycin 525 MG in SYRINGE 0 ML IV SCH (15:20)
--- NOTE | 2021-01-21 16:01 | Hospitalist Progress Note ---
Date of Service January 21, 2021 Assessment & Plan (1) PAF (paroxysmal atrial fibrillation): Plan: Intermittent in his rhythm and atrial fibrillation with RVR on telemetry review today. Maintains on the heparin drip. Her atenolol is on hold and with intermittent RVR episodes will restart this. We will also restart her Cozaar in a.m. She has presumed ischemic heart disease per Cardiology who recommends to cont heparin drip for now. Definitive anticoagulation recommendations to be decided. Continue telemetry monitoring. (2) Diabetic ulcer of right foot: Plan: Cont broad spectrum abx including Dapto, Zosyn an clindamycin pending further infectious disease recommendations. She is post op day #1 and doing well without significant pain or other complications. Cont current management. Wound vac in place. (3) Abscess of right foot: Plan: plan as above. (4) Osteomyelitis of fifth toe of right foot: Plan: plan as above. PT/OT per Orthopedics. (5) Post-operative state: Plan: Doing well overall, wound care per wound care nurse and orthopedics. PT/OT per orthopedics. (6) Cellulitis of right leg: Plan: Cont broad antibiotics as above. (7) Morbid obesity: (8) HTN (hypertension): Plan: Hypotension from yesterday has now resolved. We will plan to restart Cozaar and atenolol and hold HCTZ at this time. (9) DMII (diabetes mellitus, type 2): Plan: At goal glucose, cont current insulin regimen (10) DVT prophylaxis: Plan: Heparin drip full Code Cont telemetry monitoring-of note I have tried her a couple of times this evening with no answer. She requested that I give him an update. We will continue to Try him to update him later. Mariela Remy DO [facility] Hospitalist (11) [place] (acute kidney injury): Admission and Anticipated Discharge Date Admission Date: January 19, 2021 Subjective Mrs. Yao is a 65-year-old obese diabetic female presenting with a significant osteomyelitis infection in her RLE s/p right foot toe partial amputation. Overnight she developed rapid atrial fibrillation and was treated with digoxin IV and started on heparin. She was seen by cardiology earlier today and was felt to be hypervolemic. Patient denies any personal swelling or shortness of breath today. IV fluids were stopped and she was given a dose of IV Lasix. Her oral Lasix at home was restarted. Telemetry review revealed periodic bursts of RVR with a heart rate into the 150s. She is otherwise feeling well and denying any chest pain or postop pain in her feet. She reports getting up and out of bed today. Review of Systems Review of Systems: At least ten systems were reviewed and negative except as indicated in HPI above. Physical Exam Physical Exam: CONSTITUTIONAL: morbid obesity, vitals as above, generally well-appearing, NAD EYES: normal conjunctivae, no scleral icterus ENT: external ear and nose normal, poor dentition, MMM NECK: trachea midline RESPIRATORY: clear to auscultation bilaterally, no crackles, rales or wheezes, normal respiratory effort CARDIOVASCULAR: regular rate and rhythm, S1 and 2 heard without murmurs, gallops or rubs, no JVD, no peripheral edema CHEST: inspection of chest was normal GASTROINTESTINAL: soft, nontender, protuberant, ND, no guarding MUSCULOSKELETAL: strength 5/5 throughout, head is normocephalic and atraumatic, neck supple, normal palpation of chest wall without tenderness SKIN: warm and dry, lower extremities with erythematous woody appearing skin. Bright red bilaterally. Wound vac to right heel, wrapped in violeta. NEUROLOGIC: CN 2-12 grossly intact, no sensory deficit, normal cognition, normal speech, no tremor PSYCHIATRIC: alert cooperative and oriented to person, place and time. Results & Data Results & Data ([facility]) Vital Signs (Past 12 Hours) Vital Signs Temp Pulse Resp BP Pulse Ox 01/21/21 13:57 95 01/21/21 12:15 36.8 C 76 24 139/68 95 01/21/21 07:44 36.9 C 79 24 124/63 96 Laboratory Results Short CBC 01/21/21 Range/Units 04:45 WBC 13.04 H (4.8-10.8) K/uL Hgb 11.1 L (12.0-16.0) g/dL Hct 35.4 L (37-47) % Plt Count 475 H (130-400) K/uL BMP 01/21/21 04:44 Creatinine 1.42 H D Medications Administered Current Inpatient Medications Acetaminophen (Acetaminophen 325 Mg Tab) 650 mg PO Q4H PRN PRN Reason: Pain or Fever Stop: 02/18/21 02:48 Acetaminophen (Acetaminophen 500 Mg Tab) 1,000 mg PO Q8 MYESHA Stop: 02/18/21 14:58 Last Admin: 01/21/21 15:19 Dose: 1,000 mg Documented by: Al Hydrox/Mg Hydrox/Simethicone (Aluminum/Magnesium Susp 30 Ml Udc) 15 ml PO Q4H PRN PRN Reason: Heartburn Stop: 02/18/21 14:58 Aspirin (Aspirin 81 Mg Ectab) 81 mg PO DAILY MYESHA Stop: 02/18/21 08:59 Last Admin: 01/21/21 08:24 Dose: 81 mg Documented by: Atenolol (Atenolol 50 Mg Tablet) 50 mg PO DAILY MYESHA Stop: 02/18/21 08:59 Last Admin: 01/20/21 09:50 Dose: Not Given Documented by: Bisacodyl (Bisacodyl 10 Mg Supp) 10 mg FL DAILY PRN PRN Reason: Constipation Stop: 02/18/21 14:58 Dextrose (Dextrose 50% 50 Ml Syringe) 25 - 50 ml IV UD PRN; Protocol PRN Reason: Hypoglycemia Protocol Stop: 02/18/21 02:59 Diphenhydramine HCl (Diphenhydramine Capsule 25 Mg Cap) 25 mg PO Q8H PRN PRN Reason: Itching Stop: 02/18/21 14:58 Docusate Sodium (Docusate Sodium 100 Mg Cap) 100 mg PO BID MYESHA Stop: 02/18/21 20:59 Last Admin: 01/21/21 08:36 Dose: 100 mg Documented by: Furosemide (Furosemide 20 Mg Tab) 20 mg PO QAM MYESHA Stop: 02/21/21 08:59 Glucagon (Glucagon For Inj 1 Mg Vial) 1 mg IM UD PRN; Protocol PRN Reason: Hypoglycemia Protocol Stop: 02/18/21 02:59 Glucose (Glucose 40% Gel 15 Gm Tube) 15 - 30 gm PO UD PRN; Protocol PRN Reason: Hypoglycemia Protocol Stop: 02/18/21 02:59 Glucose (Glucose 10 Tabs/Tube) 4 - 8 tabs PO UD PRN; Protocol PRN Reason: Hypoglycemia Protocol Stop: 02/18/21 02:59 Hydrochlorothiazide (Hydrochlorothiazide 25 Mg Tab) 25 mg PO DAILY MYESHA Stop: 02/18/21 08:59 Last Admin: 01/20/21 09:50 Dose: Not Given Documented by: Hydromorphone HCl (Hydromorphone Inj 0.5 Mg/0.5 Ml Syr) 0.5 mg IV Q3H PRN PRN Reason: Pain or Pre PT Stop: 02/02/21 14:58 Piperacillin Sod/Tazobactam (Sod 4.5 gm/ Dextrose) 120 mls @ 30 mls/hr IV Q8H [facility]; Protocol Stop: 01/28/21 23:59 Last Admin: 01/21/21 12:25 Dose: 30 mls/hr Documented by: Clindamycin Phosphate 600 mg/ (Dextrose) 54 mls @ 100 mls/hr IV Q8H [facility] Stop: 01/26/21 04:59 Last Infusion: 01/21/21 14:40 Dose: Infused Documented by: Daptomycin 525 mg/ Syringe 10.5 mls @ 5.25 mls/min IV Q24H [facility]; Protocol Stop: 03/02/21 15:59 Last Admin: 01/21/21 15:20 Dose: 5.25 mls/min Documented by: Heparin Sodium/Dextrose (Heparin Sodium/Dextrose) 25,000 units in 500 mls @ 40 mls/hr IV .[id number] [facility]; Protocol Stop: 02/19/21 06:14 Last Admin: 01/21/21 14:03 Dose: 2,000 units/hr, 40 mls/hr Documented by: Insulin Aspart (Insulin Aspart 100 Units/Ml 3 Ml Pen) 0 units SC ACHS [facility] Stop: 02/18/21 02:59 Last Admin: 01/21/21 12:23 Dose: 17 units Documented by: Insulin Glargine (Insulin Glargine Solostar 100 Units/Ml 3 Ml Pen) 30 units SC BID [facility] Stop: 02/18/21 20:59 Last Admin: 01/21/21 08:25 Dose: 30 units Documented by: Losartan Potassium (Losartan Potassium 50 Mg Tab) 100 mg PO DAILY [facility] Stop: 02/18/21 08:59 Last Admin: 01/20/21 09:50 Dose: Not Given Documented by: Magnesium Hydroxide (Magnesium Hydroxide Susp 30 Ml Udc) 30 ml PO Q6H PRN PRN Reason: Constipation Stop: 02/18/21 14:58 Metoclopramide HCl (Metoclopramide Hcl Inj 5 Mg/Ml 2 Ml Vial) 10 mg IV Q6H PRN PRN Reason: Nausea And Vomiting Stop: 02/18/21 14:58 Miconazole Nitrate (Miconazole Nitrate Powder 43 Gm) 1 appln EXT PRN PRN PRN Reason: Affected Skin Folds Stop: 02/18/21 06:46 Miscellaneous (Carbohydrates For Hypoglycemia ) 15 - 30 gm PO UD PRN PRN Reason: Hypoglycemia Treatment Stop: 02/18/21 02:59 Miscellaneous Information (Piperacill/Tazobac Consult Active) 1 ea N/A UD PRN PRN Reason: Consult Stop: 02/17/21 21:40 Miscellaneous Information (Pharmacy Glycemic Mgmt Consult) 1 ea N/A UD PRN PRN Reason: Consult Stop: 02/18/21 14:58 Miscellaneous Information (Daptomycin Consult Active) 1 ea N/A UD PRN PRN Reason: Consult Stop: 02/18/21 15:39 Multivitamins (Multivitamin Tab) 1 tab PO QAM MYESHA Stop: 02/19/21 08:59 Last Admin: 01/21/21 08:25 Dose: 1 tab Documented by: Naloxone HCl (Naloxone Hcl 0.4 Mg/1 Ml Vial/Carp) 0.1 mg IV Q5M PRN PRN Reason: Oversedation/Resp Depression Stop: 02/18/21 14:58 Nitroglycerin (Nitroglycerin Sl 0.4 Mg/Tab Tab) 0.4 mg SL UD PRN PRN Reason: Chest Pain Stop: 02/18/21 02:48 Ondansetron HCl (Ondansetron Inj 2 Mg/Ml 2 Ml Vial) 4 mg IV Q6H PRN PRN Reason: Nausea Stop: 02/18/21 02:48 Oxycodone HCl (Oxycodone Hcl Ir 5 Mg Tab (Immediate Release)) 5 - 10 mg PO Q4H PRN PRN Reason: Pain or Pre PT Stop: 02/02/21 14:58 Polyethylene Glycol (Polyethylene (Miralax) 17 Gm Pack) 17 gm PO DAILY PRN PRN Reason: Constipation Stop: 02/18/21 02:48 Sennosides (Senna 8.6 Mg Tab) 17.2 mg PO HS MYESHA Stop: 02/18/21 20:59 Last Admin: 01/20/21 22:42 Dose: 17.2 mg Documented by: Simvastatin (Simvastatin 20 Mg Tab) 20 mg PO DAILY MYESHA Stop: 02/18/21 08:59 Last Admin: 01/19/21 08:17 Dose: 20 mg Documented by:
[2021-01-21] MEDS ORDERED: ALBUT/IPRATROP 3MG/0.5MG NEB 3 ML VIAL NEB PRN (17:39)
--- NOTE | 2021-01-21 17:51 | Orthopedic Progress Note ---
Date of Service January 21, 2021 Assessment & Plan (1) Osteomyelitis of fifth toe of right foot: Plan: Postop day 2 status post ; 1. Right foot resection, fifth metatarsal head and shaft due to osteomyelitis. 2. Irrigation and debridement diabetic neuropathic ulcer, lateral forefoot 2.7 x 1.7 x 0.2 cm deep including skin, subcutaneous tissue, fascia and flexor tendon. 3. Resection partial proximal phalanx 5th toe due to osteomyelitis. 4. Debridement, partial resection and tenosynovectomy of septic tenosynovitis, right 5th extensor tendon. 5. Incision and drainage abscess of the proximal lateral right foot. 6. Irrigation and debridement diabetic neuropathic ulcer of right heel, 2.8 x 1.6 x 0.3 cm including skin, subcutaneous tissue and fascia. 7. Irrigation and debridement of right proximal medial thigh ulcer measuring 7.0 x 3.2 x 1.7 cm including skin, dermis and subcutaneous tissue. Continue dressing changes on the right forefoot. Use of Aquacel Ag as per wound care team for lateral ulcer if so desired. Wound VAC changes as per wound care team. Cultures from the right foot showing rare gram-positive cocci and now gram- negative bacilli. Right medial wound showing group B beta strep. Continue current antibiotics as per hospitalist team. Admission and Anticipated Discharge Date Admission Date: January 19, 2021 Subjective Postop day 2 Patient sitting up in chair. She states that she has been up in her chair for about 3 hours now. Feeling a little better today. No complaints of any foot discomfort today. Physical Exam Physical Exam: 2 wound vacs on and functioning. Forefoot dressing removed. Incision is intact. No erythema. The LYOfoam dressing that was on there was fairly saturated however I cannot express any further drainage from this wound on palpation. Small ulcer area just inferior to the wound continues with a pink base and some slight maceration around the edges. Dry dressing reapplied. Results & Data ([facility]) Vital Signs (Past 12 Hours) Vital Signs Temp Pulse Resp BP Pulse Ox 01/21/21 16:16 36.9 C 87 24 115/70 92 01/21/21 13:57 95 01/21/21 12:15 36.8 C 76 24 139/68 95 01/21/21 07:44 36.9 C 79 24 124/63 96
[2021-01-21] MEDS: ALBUT/IPRATROP 3MG/0.5MG NEB 3 ML VIAL NEB SCH (19:19)
[2021-01-21] MEDS: SENNA 8.6 MG TAB PO SCH (20:51)
[2021-01-21 21:59] LABS: Partial Thromboplastin Time 52.3 Seconds (21.0-31.0)
[2021-01-22] MEDS: HEPARIN SODIUM/DEXTROSE 25,000 UNITS/500 ML BAG IV SCH ×2 (02:48→14:53)
[2021-01-22] MEDS: PIPERACILLIN/TAZOBACTAM 4.5 GM in DEXTROSE 5% 100 ML IV SCH ×3 (04:08→20:20)
[2021-01-22] MEDS: CLINDAMYCIN 600 MG in DEXTROSE 5% 50 ML IV SCH ×3 (04:08→20:21)
[2021-01-22 05:34] LABS: Mean Corpuscular Hemoglobin 25.8 pg (25-34); Mean Corpuscular Hgb Conc 30.6 g/dL (32-36); Mean Corpuscular Volume 84.3 fL (80-100); Mean Platelet Volume 10.2 fL (7.4-10.4); Platelet Count 449 K/uL (130-400); RDW Coefficient of Variation 18.5 % (11.5-14.5); Red Blood Count 4.27 M/uL (4.2-5.4); White Blood Count 11.24 K/uL (4.8-10.8)
[2021-01-22 05:49] LABS: Partial Thromboplastin Ratio 2.1
[2021-01-22 06:08] LABS: Partial Thromboplastin Time 54.4 Seconds (21.0-31.0)
[2021-01-22 06:14] LABS: BUN Creatinine Ratio 21.4 (10-20); Calcium 8.6 mg/dl (8.5-10.1); Creatinine Clr Calc Pharmacy 62.2 ml/min; Est GFR (African American) 53.1 ml/min; Est GFR (Non-African American) 45.8 ml/min; Magnesium 1.9 mg/dl (1.8-2.4); Potassium 3.4 mmol/L (3.5-5.1)
[2021-01-22] MEDS: ACETAMINOPHEN 500 MG TAB PO SCH ×3 (06:25→21:05)
[2021-01-22] MEDS: ALBUT/IPRATROP 3MG/0.5MG NEB 3 ML VIAL NEB SCH ×4 (07:11→19:01)
[2021-01-22] MEDS: ASPIRIN 81 MG ECTAB PO SCH (07:46)
[2021-01-22] MEDS: FUROSEMIDE 20 MG TAB PO SCH (07:46)
[2021-01-22] MEDS: MULTIVITAMIN TAB PO SCH (07:47)
[2021-01-22] MEDS: DOCUSATE SODIUM 100 MG CAP PO SCH ×2 (07:48→20:18)
[2021-01-22] MEDS: INSULIN ASPART 100 UNITS/ML 3 ML PEN SC SCH ×4 (07:48→20:32)
[2021-01-22] MEDS: INSULIN GLARGINE SOLOSTAR 100 UNITS/ML 3 ML PEN SC SCH ×2 (07:49→20:33)
[2021-01-22] MEDS: LOSARTAN POTASSIUM 50 MG TAB PO SCH (08:55)
[2021-01-22] MEDS: ATENOLOL 50 MG TABLET PO SCH (08:55)
[2021-01-22] MEDS ORDERED: POTASSIUM CHLORIDE CRTAB 20 MEQ TABCR PO ONE (08:57)
--- NOTE | 2021-01-22 10:16 | Orthopedic Progress Note ---
Date of Service January 22, 2021 Assessment & Plan (1) Osteomyelitis of fifth toe of right foot: Plan: Postop day 3 status post ; 1. Right foot resection, fifth metatarsal head and shaft due to osteomyelitis. 2. Irrigation and debridement diabetic neuropathic ulcer, lateral forefoot 2.7 x 1.7 x 0.2 cm deep including skin, subcutaneous tissue, fascia and flexor tendon. 3. Resection partial proximal phalanx 5th toe due to osteomyelitis. 4. Debridement, partial resection and tenosynovectomy of septic tenosynovitis, right 5th extensor tendon. 5. Incision and drainage abscess of the proximal lateral right foot. 6. Irrigation and debridement diabetic neuropathic ulcer of right heel, 2.8 x 1.6 x 0.3 cm including skin, subcutaneous tissue and fascia. 7. Irrigation and debridement of right proximal medial thigh ulcer measuring 7.0 x 3.2 x 1.7 cm including skin, dermis and subcutaneous tissue. Ortho will sign off at this time. Continue daily dressing changes to forefoot wound and ulcer. Wound vac changes as per Wound Care Team. PLEASE CALL WITH ANY CHANGES IN WOUND DRAINAGE OR APPEARANCE OF WORSENING WOUND. Cultures from the right foot as below. Right medial wound showing group B beta strep. Continue current antibiotics as per hospitalist team. Admission and Anticipated Discharge Date Admission Date: January 19, 2021 Subjective POD 3 Pt sitting up in bed. Antoinette Carvajal present from Wound care to change wound vacs today. Pt without complaints this AM. Physical Exam Physical Exam: 2 wound vacs removed. Forefoot dressing removed. Right medial thigh wound looking better today. Wound healing in. No purulence. [place]/red wound base. Heel ulcer looking good. [place]/red base. Slight maceration at some of the edges but edges healing in. No purulence. Right forefoot wound approximated well. Serous drainage noted on dressing but did not soak through the dressing I had placed yesterday. I can express a small amount of serous drainage from the proximal portion of the wound. No purulence. Ulcer near the wound with pink base with some maceration around the edges. Wound care replacing wound vacs and forefoot dressing. Results & Data ([facility]) Vital Signs (Past 12 Hours) Vital Signs Temp Pulse Pulse Resp BP Pulse Ox 01/22/21 08:06 83 20 144/67 H 01/22/21 08:00 36.5 C 01/22/21 07:56 83 14 141/72 H 01/22/21 07:29 79 18 95 01/22/21 04:15 36.5 C 01/22/21 04:06 79 19 124/89 96 01/22/21 00:48 36.7 C 01/22/21 00:36 72 23 120/58 L 94 01/22/21 00:06 73 23 138/69 95 01/21/21 23:59 80 01/21/21 23:36 77 24 140/72 95 01/21/21 23:07 84 25 H 154/72 H 01/21/21 22:36 75 25 H 135/66 96 Diagnostic Findings Name: ALEXI HAYES Acct: [id number] Status: ADM [place] : 1955 [facility] [place] Date: 01/19/21 Age: 65 Sex: F Dis Date: Loc: ICU Surgical [address] [place] [address]/Bed: [facility] Spec: [id number] Collected: 01/19/21 Received: 01/19/[address]: Hermilo MontalvoD.O. Copy To: Sergio Rodriguze MD Source: Foot,Right OV Order: Ordered: Aer/Fabi Cult/Sm Comments: Comment Deep right lateral foot Procedure Result Verified Site Gram Stain Final 01/19/21 Gram Stain Result Few WBCs Seen Rare Gram Positive Cocci Aero/Fabi Cult Preliminary 01/22/21 Organism 1 Morganella morganii Quantity Few Sens Sensitivities to Follow +MixWound Plus Low Counts of Probable Skin Nichole Organism 2 Group B Beta Strep Quantity Few Sens Sensitivities to Follow Organism 3 Anaerobic gram negative bacill Quantity Few Sens No Sensitivities to Follow M morganii RX M.I.C. --- --------- Amp/Sul R >16/8 Cefepime S <=2 Ceftriaxone S <=1 Ciprofloxacin S <=0.25 Ertapenem S <=0.5 Gentamicin S <=4 Levofloxacin S <=0.5 Meropenem S <=1 Tobramycin S <=4 Trimeth/Sulfa S <=2/38 Pip/Tazo S <=16 S = SENSITIVE I = INTERMEDIATE R = RESISTANT
--- NOTE | 2021-01-22 13:22 | Cardiology Progress Note ---
Date of Service January 22, 2021 Assessment & Plan (1) Diabetic ulcer of right foot: (2) Obesities, morbid: (3) CKD (chronic kidney disease): (4) Diabetes: (5) PAF (paroxysmal atrial fibrillation): Plan: The patient had some PAF last evening but none today. It should be noted that on her echocardiogram she had evidence of pulmonary hypertension and some right heart failure. This may have been related to the volume overload status for which she was diuresed yesterday however, given her body habitus I think we have to consider sleep apnea and hypoventilation syndrome. She is currently on heparin and I think you can start to switch her over to warfarin if she is going to have no other procedures. Her body weight excludes her from a NOAC. Admission and Anticipated Discharge Date Admission Date: January 19, 2021 Subjective No new cardiac complaints today. Review of Systems Review of Systems: Review of Systems: See HPI for pertinent positives. All other 10 point review of systems are negative. Physical Exam Physical Exam: General: no acute distress and stated age Head: normocephalic, no masses, lesions, tenderness or abnormalities Eyes: conjunctiva are pink and non-injected, sclera clear Neck: supple, no adenopathy, no bruits, normal jugular venous pulse, no hepatojugular reflux Chest: normal shape and normal respiratory effort Lungs: clear to auscultation and percussion Cardiac Exam: - regular rate & rhythm, no murmurs gallops or rubs - normal S1, normal S2 Pulses: 2(+) throughout Abdomen: abdomen soft, non-tender, no abnormal masses and no hepatosplenomegaly Musculoskeletal: no gait disturbance, no joint inflammation, no deforming arthritis Extremities: Right foot bandaged with wound VAC. Neuro: grossly normal exam Results & Data ([facility]) Vital Signs (Past 12 Hours) Vital Signs Temp Pulse Pulse Resp BP Pulse Ox 01/22/21 12:08 65 26 H 01/22/21 12:00 36.5 C 01/22/21 08:06 83 20 144/67 H 01/22/21 08:00 36.5 C 01/22/21 07:56 83 14 141/72 H 01/22/21 07:29 79 18 95 01/22/21 04:15 36.5 C 01/22/21 04:06 79 19 124/89 96 Laboratory Results Laboratory Results - last 24 hr 01/21/21 01/21/21 01/21/21 16:29 20:48 21:18 WBC RBC Hgb Hct MCV MCH MCHC RDW Std Deviation RDW Coeff of Gurmeet Plt Count MPV APTT 52.3 H* PTT Ratio 2.0 Sodium Potassium Chloride Carbon Dioxide Anion Gap BUN Creatinine Est Cr Clr Drug Dosing Est GFR ( Amer) Est GFR (Non-Af Amer) BUN/Creatinine Ratio Glucose POC Glucose 185 H 119 H Calcium Magnesium 01/22/21 01/22/21 01/22/21 05:15 05:15 05:15 WBC 11.24 H RBC 4.27 Hgb 11.0 L Hct 36.0 L MCV 84.3 MCH 25.8 MCHC 30.6 L RDW Std Deviation 57.0 H RDW Coeff of Gurmeet 18.5 H Plt Count 449 H MPV 10.2 APTT 54.4 H* PTT Ratio 2.1 Sodium 139 Potassium 3.4 L D Chloride 105 Carbon Dioxide 33 H Anion Gap 1.0 L BUN 26 H Creatinine 1.22 H Est Cr Clr Drug Dosing 62.2 Est GFR ( Amer) 53.1 Est GFR (Non-Af Amer) 45.8 BUN/Creatinine Ratio 21.4 H Glucose 130 H POC Glucose Calcium 8.6 Magnesium 1.9 01/22/21 01/22/21 07:34 11:42 WBC RBC Hgb Hct MCV MCH MCHC RDW Std Deviation RDW Coeff of Gurmeet Plt Count MPV APTT PTT Ratio Sodium Potassium Chloride Carbon Dioxide Anion Gap BUN Creatinine Est Cr Clr Drug Dosing Est GFR ( Amer) Est GFR (Non-Af Amer) BUN/Creatinine Ratio Glucose POC Glucose 138 H 244 H Calcium Magnesium Diagnostic Findings Echocardiogram suggests pulmonary hypertension with RV dysfunction. Some of this may be related to the volume overload that the patient was diuresed with however given her body habitus it may be suggestive of sleep apnea and hypoventilation syndrome. Medications Administered Current Inpatient Medications Acetaminophen (Acetaminophen 325 Mg Tab) 650 mg PO Q4H PRN PRN Reason: Pain or Fever Stop: 02/18/21 02:48 Acetaminophen (Acetaminophen 500 Mg Tab) 1,000 mg PO Q8 MYESHA Stop: 02/18/21 14:58 Last Admin: 01/22/21 06:25 Dose: 1,000 mg Documented by: Al Hydrox/Mg Hydrox/Simethicone (Aluminum/Magnesium Susp 30 Ml Udc) 15 ml PO Q4H PRN PRN Reason: Heartburn Stop: 02/18/21 14:58 Albuterol (Albut/Ipratrop 3mg/0.5mg Neb 3 Ml Vial) 3 ml NEB QIDR MYESHA Stop: 02/20/21 18:59 Last Admin: 01/22/21 12:08 Dose: Not Given Documented by: Albuterol (Albut/Ipratrop 3mg/0.5mg Neb 3 Ml Vial) 3 ml NEB Q2H PRN PRN Reason: Shortness Of Breath Stop: 02/20/21 17:38 Aspirin (Aspirin 81 Mg Ectab) 81 mg PO DAILY MYESHA Stop: 02/18/21 08:59 Last Admin: 01/22/21 07:46 Dose: 81 mg Documented by: Atenolol (Atenolol 50 Mg Tablet) 50 mg PO DAILY MYESHA Stop: 02/18/21 08:59 Last Admin: 01/22/21 08:55 Dose: 50 mg Documented by: Bisacodyl (Bisacodyl 10 Mg Supp) 10 mg CA DAILY PRN PRN Reason: Constipation Stop: 02/18/21 14:58 Dextrose (Dextrose 50% 50 Ml Syringe) 25 - 50 ml IV UD PRN; Protocol PRN Reason: Hypoglycemia Protocol Stop: 02/18/21 02:59 Diphenhydramine HCl (Diphenhydramine Capsule 25 Mg Cap) 25 mg PO Q8H PRN PRN Reason: Itching Stop: 02/18/21 14:58 Docusate Sodium (Docusate Sodium 100 Mg Cap) 100 mg PO BID MYESHA Stop: 02/18/21 20:59 Last Admin: 01/22/21 07:48 Dose: 100 mg Documented by: Furosemide (Furosemide 20 Mg Tab) 20 mg PO QAM MYESHA Stop: 02/21/21 08:59 Last Admin: 01/22/21 07:46 Dose: 20 mg Documented by: Glucagon (Glucagon For Inj 1 Mg Vial) 1 mg IM UD PRN; Protocol PRN Reason: Hypoglycemia Protocol Stop: 02/18/21 02:59 Glucose (Glucose 40% Gel 15 Gm Tube) 15 - 30 gm PO UD PRN; Protocol PRN Reason: Hypoglycemia Protocol Stop: 02/18/21 02:59 Glucose (Glucose 10 Tabs/Tube) 4 - 8 tabs PO UD PRN; Protocol PRN Reason: Hypoglycemia Protocol Stop: 02/18/21 02:59 Hydrochlorothiazide (Hydrochlorothiazide 25 Mg Tab) 25 mg PO DAILY MYESHA Stop: 02/18/21 08:59 Last Admin: 01/20/21 09:50 Dose: Not Given Documented by: Hydromorphone HCl (Hydromorphone Inj 0.5 Mg/0.5 Ml Syr) 0.5 mg IV Q3H PRN PRN Reason: Pain or Pre PT Stop: 02/02/21 14:58 Piperacillin Sod/Tazobactam (Sod 4.5 gm/ Dextrose) 120 mls @ 30 mls/hr IV Q8H [facility]; Protocol Stop: 01/28/21 23:59 Last Admin: 01/22/21 12:08 Dose: 30 mls/hr Documented by: Clindamycin Phosphate 600 mg/ (Dextrose) 54 mls @ 100 mls/hr IV Q8H [facility] Stop: 01/26/21 04:59 Last Infusion: 01/22/21 12:44 Dose: Infused Documented by: Daptomycin 525 mg/ Syringe 10.5 mls @ 5.25 mls/min IV Q24H [facility]; Protocol Stop: 03/02/21 15:59 Last Admin: 01/21/21 15:20 Dose: 5.25 mls/min Documented by: Heparin Sodium/Dextrose (Heparin Sodium/Dextrose) 25,000 units in 500 mls @ 40 mls/hr IV .[id number] [facility]; Protocol Stop: 02/19/21 06:14 Last Titration: 01/22/21 06:42 Dose: 2,000 units/hr, 40 mls/hr Documented by: Insulin Aspart (Insulin Aspart 100 Units/Ml 3 Ml Pen) 0 units SC ACHS [facility] Stop: 02/18/21 02:59 Last Admin: 01/22/21 12:10 Dose: 40 units Documented by: Insulin Glargine (Insulin Glargine Solostar 100 Units/Ml 3 Ml Pen) 30 units SC BID [facility] Stop: 02/18/21 20:59 Last Admin: 01/22/21 07:49 Dose: 30 units Documented by: Losartan Potassium (Losartan Potassium 50 Mg Tab) 100 mg PO DAILY [facility] Stop: 02/18/21 08:59 Last Admin: 01/22/21 08:55 Dose: 100 mg Documented by: Magnesium Hydroxide (Magnesium Hydroxide Susp 30 Ml Udc) 30 ml PO Q6H PRN PRN Reason: Constipation Stop: 02/18/21 14:58 Metoclopramide HCl (Metoclopramide Hcl Inj 5 Mg/Ml 2 Ml Vial) 10 mg IV Q6H PRN PRN Reason: Nausea And Vomiting Stop: 02/18/21 14:58 Miconazole Nitrate (Miconazole Nitrate Powder 43 Gm) 1 appln EXT PRN PRN PRN Reason: Affected Skin Folds Stop: 02/18/21 06:46 Miscellaneous (Carbohydrates For Hypoglycemia ) 15 - 30 gm PO UD PRN PRN Reason: Hypoglycemia Treatment Stop: 02/18/21 02:59 Miscellaneous Information (Piperacill/Tazobac Consult Active) 1 ea N/A UD PRN PRN Reason: Consult Stop: 02/17/21 21:40 Miscellaneous Information (Pharmacy Glycemic Mgmt Consult) 1 ea N/A UD PRN PRN Reason: Consult Stop: 02/18/21 14:58 Miscellaneous Information (Daptomycin Consult Active) 1 ea N/A UD PRN PRN Reason: Consult Stop: 02/18/21 15:39 Multivitamins (Multivitamin Tab) 1 tab PO QAM MYESHA Stop: 02/19/21 08:59 Last Admin: 01/22/21 07:47 Dose: 1 tab Documented by: Naloxone HCl (Naloxone Hcl 0.4 Mg/1 Ml Vial/Carp) 0.1 mg IV Q5M PRN PRN Reason: Oversedation/Resp Depression Stop: 02/18/21 14:58 Nitroglycerin (Nitroglycerin Sl 0.4 Mg/Tab Tab) 0.4 mg SL UD PRN PRN Reason: Chest Pain Stop: 02/18/21 02:48 Ondansetron HCl (Ondansetron Inj 2 Mg/Ml 2 Ml Vial) 4 mg IV Q6H PRN PRN Reason: Nausea Stop: 02/18/21 02:48 Oxycodone HCl (Oxycodone Hcl Ir 5 Mg Tab (Immediate Release)) 5 - 10 mg PO Q4H PRN PRN Reason: Pain or Pre PT Stop: 02/02/21 14:58 Polyethylene Glycol (Polyethylene (Miralax) 17 Gm Pack) 17 gm PO DAILY PRN PRN Reason: Constipation Stop: 02/18/21 02:48 Sennosides (Senna 8.6 Mg Tab) 17.2 mg PO [facility] Stop: 02/18/21 20:59 Last Admin: 01/21/21 20:51 Dose: 17.2 mg Documented by: Simvastatin (Simvastatin 20 Mg Tab) 20 mg PO DAILY [facility] Stop: 02/18/21 08:59 Last Admin: 01/19/21 08:17 Dose: 20 mg Documented by:
--- NOTE | 2021-01-22 13:26 | Pharmacy Report ---
Pharmacy Glycemic Short Note 2 - Date of Service January 22, 2021 - Glycemic Short BSG Results (Last 24 hours): 01/21/21 01/21/21 01/22/21 16:29 20:48 05:15 Glucose 130 H POC Glucose 185 H 119 H 01/22/21 01/22/21 07:34 11:42 Glucose POC Glucose 138 H 244 H OUTPATIENT ANTIDIABETIC REGIMEN: * Lantus 30 units SQ BID * NovoLog per scale * metformin * A1c pending 01/19/21 ASSESSMENT: 01/22 * Fasting within goal range, continue current lantus regimen * Prandial BSG today elevated, patient with higher carb count at lunch today and therefore received high novolog dose. Will wait to adjust based on evening BSG. 01/21: * Patient reasonably well controlled yesterday, receiving 104 units of insulin, 60 units of which were basal. * Fasting BSGs adequate, continue current lantus regimen. Post prandial BSGs slightly elevated, will tighten carb coverage. * Patient continues to tolerate a diet 01/19 * 65yo T2DM female with unknown degree of outpatient control - A1c pending * Pt s/p Resection fifth metatarsal head and shaft of right foot due to osteomyelitis with I&D. * Will increase back to outpatient dosing of Lantus 30 units SQ BID now that diet resumed post-op * Tighten CF/CR to corresponding CF/CR to 60 units of basal insulin * Tight glycemic control crucial for wound healing. Titrate based on BSG trends to maintain goal BSGs of <180 (ideally <150 mg/dl) to prevent post-op infectious complications. * Could also consider zinc, vitamin C and protein supplementation to promote wound healing in wound care patients Zinc: 50 mg elemental zinc (e.g., 220 mg zinc sulfate) PO three times per day until wound healed. Vitamin C: 500-3000mg/day depending on whether it causes soft stool, then back off Protein: may consult dietary for protein supplement recommendation. Could consider boost glucose control supplement PLAN FOR INPATIENT GLYCEMIC CONTROL: * Hold outpatient oral diabetes medications * Basal insulin * Lantus 30 units SQ BID * Bolus insulin * NovoLog per scale ACHS or Q6hrs while NPO * Goal Range: Low 110 mg/dL - High 140 mg/dL * Correction Factor: 10 mg/dL/unit * Nutritional / Prandial insulin per carb ratio of 1 unit per 3 grams CHO consumed PLAN FOR DISCHARGE: * TBD based on A1c
--- NOTE | 2021-01-22 15:53 | Hospitalist Progress Note ---
Date of Service January 22, 2021 Assessment & Plan (1) PAF (paroxysmal atrial fibrillation): Plan: Paroxysmal Atrial fibrillation Continue Tylenol Continue IV Heparin Started on Coumadin Monitor INR Appreciate Cardiology Input Pulmonary Vascular congestion Right heart Failure--Likely Chronic Pulmonary hypertension Suspected RAZA, OHS -ECHO: Left ventricle is normal size. Left frontal systolic function is normal. EF 55 to 60%. The right ventricle is moderate to severely dilated. Right ventricle systolic function moderately to to severely reduced. Moderate tricuspid regurgitation. Grade 1 diastolic dysfunction. Severe pulmonary hypertension is suspected with an estimated pulmonary artery pressure of 50-60 mmHg -Needs sleep study as outpatient Continue diuretics Monitor (2) Diabetic ulcer of right foot: Plan: S/P Debridement Continue Daptomycin, Zosyn, clindamycin Blood culture: 05/04 : Group B beta strep Wound culture growing group B beta strep, gram-negative bacilli, Morganella ID Consulted--pending Continue Wound Care Appreciate orthopedics input (3) Abscess of right foot: Plan: Management as above (4) Osteomyelitis of fifth toe of right foot: Plan: S/P Right foot resection, fifth metatarsal head and shaft due to osteomyelitis Patient orthopedics help Continue wound care (5) Post-operative state: Plan: Activity as per Ortho (6) Cellulitis of right leg: Plan: Continue IV antibiotics (7) Morbid obesity: Plan: BMI: 61 (8) HTN (hypertension): Plan: Continue losartan, Atenolol Monitor (9) DMII (diabetes mellitus, type 2): Plan: HbA1c 7.8 Continue insulin therapy Hyperlipidemia Hold statin while on daptomycin (10) DVT prophylaxis: Plan: Heparin, Coumadin Code Status full Code (11) BERKLEY (acute kidney injury): Admission and Anticipated Discharge Date Admission Date: January 19, 2021 Subjective Patient is seen and examined at bedside States feeling well today Offers no complaints Denies any significant leg pain Also denies chest pain, dyspnea, dizziness, nausea, abd pain Review of Systems Review of Systems: All systems reviewed & are unremarkable except as noted in Subjective Physical Exam Physical Exam: Physical Exam: Vitals signs as noted above General Appearance:Morbidly Obese, no apparent distress Head: normocephalic, Atraumatic Eyes: normal inspection, EOMI Neck: supple, Trachea midline Respiratory/Chest: Decreased breath sounds, CTA Cardiovascular: S1, S2, No murmur Abdomen/GI:Soft, Non tender, Bowel sounds present Extremities/Musculoskeletal:normal inspection, Right foot in dressing, +Wound Vac, Leg erythema Neurologic/Psych:AAOX3, grossly no focal neurological deficits Skin: normal color, warm Results & Data Results & Data ([facility]) Vital Signs (Past 12 Hours) Vital Signs Temp Pulse Pulse Resp BP BP Pulse Ox 01/22/21 15:35 36.5 C 71 142/71 H 92 01/22/21 15:21 68 20 95 01/22/21 12:08 65 26 H 01/22/21 12:00 36.5 C 01/22/21 08:06 83 20 144/67 H 01/22/21 08:00 36.5 C 01/22/21 07:56 83 14 141/72 H 01/22/21 07:29 79 18 95 01/22/21 04:15 36.5 C 01/22/21 04:06 79 19 124/89 96 Laboratory Results Short CBC 01/22/21 Range/Units 05:15 WBC 11.24 H (4.8-10.8) K/uL Hgb 11.0 L (12.0-16.0) g/dL Hct 36.0 L (37-47) % Plt Count 449 H (130-400) K/uL BMP 01/22/21 05:15 Sodium 139 Potassium 3.4 L D Chloride 105 Carbon Dioxide 33 H BUN 26 H Creatinine 1.22 H Glucose 130 H Calcium 8.6
[2021-01-22] MEDS: WARFARIN SOD 7.5 MG TAB PO SCH (16:14)
[2021-01-22] MEDS: DAPTOmycin 525 MG in SYRINGE 0 ML IV SCH (16:15)
[2021-01-22] MEDS: SENNA 8.6 MG TAB PO SCH (20:19)
[2021-01-23] MEDS: PIPERACILLIN/TAZOBACTAM 4.5 GM in DEXTROSE 5% 100 ML IV SCH (03:26)
[2021-01-23] MEDS: HEPARIN SODIUM/DEXTROSE 25,000 UNITS/500 ML BAG IV SCH ×2 (03:26→15:47)
[2021-01-23] MEDS: ACETAMINOPHEN 500 MG TAB PO SCH ×3 (05:16→21:11)
[2021-01-23] MEDS: CLINDAMYCIN 600 MG in DEXTROSE 5% 50 ML IV SCH (05:16)
[2021-01-23 05:57] LABS: Hematocrit (blood only) 35.1 % (37-47); Mean Corpuscular Hgb Conc 31.3 g/dL (32-36); Mean Platelet Volume 10.2 fL (7.4-10.4); Nucleated RBC # (auto) 0.02 K/uL (0-0); Nucleated RBC % (auto) 0.2 %; Platelet Count 453 K/uL (130-400); RDW Coefficient of Variation 18.2 % (11.5-14.5); RDW Standard Deviation 55.3 fL (36.4-46.3); Red Blood Count 4.23 M/uL (4.2-5.4); White Blood Count 13.56 K/uL (4.8-10.8)
[2021-01-23 06:21] LABS: INR 1.2 (0.9-1.1); Partial Thromboplastin Ratio 2.1; Prothrombin Time 12.1 Seconds (9.0-12.0)
[2021-01-23 06:24] LABS: Partial Thromboplastin Time 54.7 Seconds (21.0-31.0)
[2021-01-23 06:27] LABS: BUN Creatinine Ratio 17.5 (10-20); Calcium 9.1 mg/dl (8.5-10.1); Creatinine Clr Calc Pharmacy 69.8 ml/min; Est GFR (African American) 61.5 ml/min; Est GFR (Non-African American) 53.1 ml/min; Potassium 3.5 mmol/L (3.5-5.1)
[2021-01-23] MEDS: ALBUT/IPRATROP 3MG/0.5MG NEB 3 ML VIAL NEB SCH ×2 (07:20→10:50)
[2021-01-23] MEDS: ASPIRIN 81 MG ECTAB PO SCH (07:38)
[2021-01-23] MEDS: FUROSEMIDE 20 MG TAB PO SCH (07:38)
[2021-01-23] MEDS: ATENOLOL 50 MG TABLET PO SCH (07:39)
[2021-01-23] MEDS: LOSARTAN POTASSIUM 50 MG TAB PO SCH (07:39)
[2021-01-23] MEDS: MULTIVITAMIN TAB PO SCH (07:39)
[2021-01-23] MEDS: DOCUSATE SODIUM 100 MG CAP PO SCH ×2 (07:40→21:06)
[2021-01-23] MEDS: INSULIN GLARGINE SOLOSTAR 100 UNITS/ML 3 ML PEN SC SCH ×2 (07:40→21:46)
[2021-01-23] MEDS: INSULIN ASPART 100 UNITS/ML 3 ML PEN SC SCH ×4 (07:46→21:06)
[2021-01-23] MEDS ORDERED: CONSULT PHARMACY STA (07:59)
[2021-01-23] MEDS ORDERED: ERTAPENEM CONSULT ACTIVE PRN (08:07)
[2021-01-23] MEDS: ERTAPENEM SODIUM 1,000 MG in SODIUM CHLORIDE 0.9% 50 ML IV SCH (08:54)
[2021-01-23] MEDS: POTASSIUM CHLORIDE CRTAB 20 MEQ TABCR PO SCH (08:55)
--- NOTE | 2021-01-23 11:33 | Pharmacy Report ---
Pharmacy Glycemic Short Note 2 - Date of Service January 23, 2021 - Glycemic Short BSG Results (Last 24 hours): 01/22/21 01/22/21 01/22/21 11:42 16:08 20:24 Glucose POC Glucose 244 H 122 H 107 H 01/23/21 01/23/21 05:31 07:22 Glucose 81 POC Glucose 83 OUTPATIENT ANTIDIABETIC REGIMEN: * Lantus 30 units SQ BID * NovoLog per scale * metformin * A1c 7.8% 01/19/21 ASSESSMENT: 01/23 * 123 units SQ insulin administered over last 24 hours while tolerating a diet * Fasting BSG 81 this AM w/ 60 units basal insulin on board - will titrate doses down by 25% today as BSG less than 100 * Post-prandial BSGs well controlled yesterday. Prandial Novolog dose was reduced empirically yesterday evening. Given current BSG pattern, will utilize larger prandial doses w/ breakfast and lunch and smaller doses w/ dinner and HS * Heparin infusion continues at ~40cc/hr, this drip is mixed in dextrose. Patient may be at risk for falling BSGs if this medication d/c'd 01/22 * Fasting within goal range, continue current lantus regimen * Prandial BSG today elevated, patient with higher carb count at lunch today and therefore received high novolog dose. Will wait to adjust based on evening BSG. 01/21: * Patient reasonably well controlled yesterday, receiving 104 units of insulin, 60 units of which were basal. * Fasting BSGs adequate, continue current lantus regimen. Post prandial BSGs slightly elevated, will tighten carb coverage. * Patient continues to tolerate a diet 01/19 * 65yo T2DM female with unknown degree of outpatient control - A1c pending * Pt s/p Resection fifth metatarsal head and shaft of right foot due to osteomyelitis with I&D. * Will increase back to outpatient dosing of Lantus 30 units SQ BID now that diet resumed post-op * Tighten CF/CR to corresponding CF/CR to 60 units of basal insulin * Tight glycemic control crucial for wound healing. Titrate based on BSG trends to maintain goal BSGs of <180 (ideally <150 mg/dl) to prevent post-op infectious complications. * Could also consider zinc, vitamin C and protein supplementation to promote wound healing in wound care patients Zinc: 50 mg elemental zinc (e.g., 220 mg zinc sulfate) PO three times per day until wound healed. Vitamin C: 500-3000mg/day depending on whether it causes soft stool, then back off Protein: may consult dietary for protein supplement recommendation. Could consider boost glucose control supplement PLAN FOR INPATIENT GLYCEMIC CONTROL: * Hold outpatient oral diabetes medications (metformin) * Basal insulin - decrease * Lantus 22 units SQ BID * Bolus insulin * NovoLog per scale ACHS or Q6hrs while NPO * Goal Range: Low 110 mg/dL - High 140 mg/dL * Correction Factor: 10 mg/dL/unit * Nutritional / Prandial insulin per carb ratio of 1 unit per 3 grams CHO consumed w/ breakfast and lunch, 1 unit per 4 grams CHO w/ dinner and HS PLAN FOR DISCHARGE: * TBD based on A1c
--- NOTE | 2021-01-23 14:40 | Hospitalist Progress Note ---
Date of Service January 23, 2021 Assessment & Plan (1) PAF (paroxysmal atrial fibrillation): Plan: Paroxysmal Atrial fibrillation Continue Atenolol Continue IV Heparin Continue Coumadin Monitor INR: 1.2 Appreciate Cardiology Input Pulmonary Vascular congestion Right heart Failure--Likely Chronic Pulmonary hypertension Suspected RAZA, OHS -ECHO: Left ventricle is normal size. Left frontal systolic function is normal. EF 55 to 60%. The right ventricle is moderate to severely dilated. Right ventricle systolic function moderately to to severely reduced. Moderate tricuspid regurgitation. Grade 1 diastolic dysfunction. Severe pulmonary hypertension is suspected with an estimated pulmonary artery pressure of 50-60 mmHg -Needs sleep study as outpatient Continue diuretics Monitor (2) Diabetic ulcer of right foot: Plan: S/P Debridement Received Daptomycin, Zosyn, clindamycin Blood culture: 05/04 : Group B beta strep Wound culture growing group B beta strep, Morganella Appreciate ID Input Continue Wound Care Appreciate orthopedics input Started on Ertapenem as per ID Needs 6 week course of IV antibiotics Plan to place PICC line prior to discharge (3) Abscess of right foot: Plan: Management as above (4) Osteomyelitis of fifth toe of right foot: Plan: S/P Right foot resection, fifth metatarsal head and shaft due to osteomyelitis Patient orthopedics help Continue wound care (5) Post-operative state: Plan: Activity as per Ortho (6) Cellulitis of right leg: Plan: Continue IV antibiotics (7) Morbid obesity: Plan: BMI: 61 (8) HTN (hypertension): Plan: Continue losartan, Atenolol Monitor (9) DMII (diabetes mellitus, type 2): Plan: HbA1c 7.8 Continue insulin therapy Hyperlipidemia Resume statin as able (10) DVT prophylaxis: Plan: Heparin, Coumadin Code Status full Code (11) BERKLEY (acute kidney injury): Admission and Anticipated Discharge Date Admission Date: January 19, 2021 Subjective Patient is seen and examined at bedside No new complaints Discussed with ID today Denies chest pain, dyspnea, dizziness, nausea, abd pain, leg pain Review of Systems Review of Systems: All systems reviewed & are unremarkable except as noted in Subjective Physical Exam Physical Exam: Physical Exam: Vitals signs as noted above General Appearance:Morbidly Obese, no apparent distress Head: normocephalic, Atraumatic Eyes: normal inspection, EOMI Neck: supple, Trachea midline Respiratory/Chest: Decreased breath sounds, CTA Cardiovascular: S1, S2, No murmur Abdomen/GI:Soft, Non tender, Bowel sounds present Extremities/Musculoskeletal:normal inspection, Right foot in dressing, +Wound Vac, Leg erythema Neurologic/Psych:AAOX3, grossly no focal neurological deficits Skin: normal color, warm Results & Data Results & Data ([facility]) Vital Signs (Past 12 Hours) Vital Signs Temp Pulse Pulse Resp BP Pulse Ox 01/23/21 12:06 36.8 C 62 20 126/59 L 93 01/23/21 10:50 70 18 94 01/23/21 08:55 36.6 C 72 28 H 136/67 94 01/23/21 07:22 67 18 96 Laboratory Results Short CBC 01/23/21 Range/Units 05:31 WBC 13.56 H (4.8-10.8) K/uL Hgb 11.0 L (12.0-16.0) g/dL Hct 35.1 L (37-47) % Plt Count 453 H (130-400) K/uL BMP 01/23/21 05:31 Sodium 139 Potassium 3.5 Chloride 103 Carbon Dioxide 37 H BUN 19 H Creatinine 1.08 Glucose 81 Calcium 9.1
[2021-01-23] MEDS: WARFARIN SOD 7.5 MG TAB PO SCH (15:47)
[2021-01-23] MEDS: SENNA 8.6 MG TAB PO SCH (21:06)
[2021-01-24] MEDS: HEPARIN SODIUM/DEXTROSE 25,000 UNITS/500 ML BAG IV SCH ×2 (06:23→20:00)
[2021-01-24] MEDS: ACETAMINOPHEN 500 MG TAB PO SCH ×3 (06:24→20:59)
[2021-01-24 06:53] LABS: Basophils # (auto) 0.04 K/uL (0-0.2); Basophils % (auto) 0.3 %; Eosinophils # (auto) 0.76 K/uL (0-0.5); Eosinophils % (auto) 5.6 %; Hematocrit (blood only) 35.8 % (37-47); Hemoglobin 10.9 g/dL (12.0-16.0); Immature Granulocytes # (auto) 0.28 K/uL (0.00-0.02); Immature Granulocytes % (auto) 2.1 %; Lymphocytes # (auto) 3.32 K/uL (1.2-3.4); Lymphocytes % (auto) 24.6 %; Mean Corpuscular Hemoglobin 25.9 pg (25-34); Mean Corpuscular Hgb Conc 30.4 g/dL (32-36); Mean Platelet Volume 10.3 fL (7.4-10.4); Monocytes # (auto) 1.22 K/uL (0.11-0.59); Monocytes % (auto) 9.1 %; Neutrophils # (auto) 7.86 K/uL (1.4-6.5); Neutrophils % (auto) 58.3 %; Platelet Count 502 K/uL (130-400); RDW Coefficient of Variation 18.3 % (11.5-14.5); RDW Standard Deviation 56.2 fL (36.4-46.3); Red Blood Count 4.21 M/uL (4.2-5.4); White Blood Count 13.48 K/uL (4.8-10.8)
[2021-01-24 07:13] LABS: INR 1.5 (0.9-1.1); Prothrombin Time 15.1 Seconds (9.0-12.0)
[2021-01-24 07:14] LABS: Partial Thromboplastin Time 52.9 Seconds (21.0-31.0)
[2021-01-24 07:21] LABS: BUN Creatinine Ratio 17.6 (10-20); Calcium 9.2 mg/dl (8.5-10.1); Creatinine Clr Calc Pharmacy 83.8 ml/min; Est GFR (African American) 76.7 ml/min; Est GFR (Non-African American) 66.2 ml/min; Potassium 3.9 mmol/L (3.5-5.1)
[2021-01-24] MEDS: INSULIN GLARGINE SOLOSTAR 100 UNITS/ML 3 ML PEN SC SCH ×2 (08:27→20:56)
[2021-01-24] MEDS: MULTIVITAMIN TAB PO SCH (08:27)
[2021-01-24] MEDS: LOSARTAN POTASSIUM 50 MG TAB PO SCH (08:27)
[2021-01-24] MEDS: POTASSIUM CHLORIDE CRTAB 20 MEQ TABCR PO SCH (08:28)
[2021-01-24] MEDS: INSULIN ASPART 100 UNITS/ML 3 ML PEN SC SCH ×4 (08:28→20:56)
[2021-01-24] MEDS: FUROSEMIDE 20 MG TAB PO SCH (08:28)
[2021-01-24] MEDS: ASPIRIN 81 MG ECTAB PO SCH (08:28)
[2021-01-24] MEDS: DOCUSATE SODIUM 100 MG CAP PO SCH ×2 (08:29→20:54)
[2021-01-24] MEDS: ATENOLOL 50 MG TABLET PO SCH (08:29)
[2021-01-24] MEDS: ERTAPENEM SODIUM 1,000 MG in SODIUM CHLORIDE 0.9% 50 ML IV SCH (08:35)
[2021-01-24] MEDS ORDERED: INSULIN GLARGINE SOLOSTAR 100 UNITS/ML 3 ML PEN SC SCH (09:00)
--- NOTE | 2021-01-24 09:56 | Pharmacy Report ---
Pharmacy Glycemic Short Note 2 - Date of Service January 24, 2021 - Glycemic Short BSG Results (Last 24 hours): 01/23/21 01/23/21 01/23/21 12:05 16:13 20:32 Glucose POC Glucose 165 H 167 H 91 01/24/21 01/24/21 06:11 07:26 Glucose 118 H POC Glucose 121 H OUTPATIENT ANTIDIABETIC REGIMEN: * Lantus 30 units SQ BID * NovoLog per scale * metformin * A1c 7.8% 01/19/21 ASSESSMENT: 01/24 * BSGs well controlled yesterday, ranging 83-167 mg/dL * Received 80 units of insulin (44 units of basal and 36 units of prandial/correctional bolus) * Fasting BSG of 121 mg/dL this morning, 91 mg/dL last evening * Will slightly reduce Lantus today * Continues on heparin infusion 01/23 * 123 units SQ insulin administered over last 24 hours while tolerating a diet * Fasting BSG 81 this AM w/ 60 units basal insulin on board - will titrate doses down by 25% today as BSG less than 100 * Post-prandial BSGs well controlled yesterday. Prandial Novolog dose was reduced empirically yesterday evening. Given current BSG pattern, will utilize larger prandial doses w/ breakfast and lunch and smaller doses w/ dinner and HS * Heparin infusion continues at ~40cc/hr, this drip is mixed in dextrose. Patient may be at risk for falling BSGs if this medication d/c'd 01/22 * Fasting within goal range, continue current lantus regimen * Prandial BSG today elevated, patient with higher carb count at lunch today and therefore received high novolog dose. Will wait to adjust based on evening BSG. 01/19 * 65yo T2DM female with unknown degree of outpatient control - A1c pending * Pt s/p Resection fifth metatarsal head and shaft of right foot due to osteomyelitis with I&D. * Will increase back to outpatient dosing of Lantus 30 units SQ BID now that diet resumed post-op * Tighten CF/CR to corresponding CF/CR to 60 units of basal insulin * Tight glycemic control crucial for wound healing. Titrate based on BSG trends to maintain goal BSGs of <180 (ideally <150 mg/dl) to prevent post-op infectious complications. * Could also consider zinc, vitamin C and protein supplementation to promote wound healing in wound care patients Zinc: 50 mg elemental zinc (e.g., 220 mg zinc sulfate) PO three times per day until wound healed. Vitamin C: 500-3000mg/day depending on whether it causes soft stool, then back off Protein: may consult dietary for protein supplement recommendation. Could consider boost glucose control supplement PLAN FOR INPATIENT GLYCEMIC CONTROL: * Hold outpatient oral diabetes medications (metformin) * Basal insulin - decrease * Lantus 20 units SQ BID * Bolus insulin * NovoLog per scale ACHS or Q6hrs while NPO * Goal Range: Low 110 mg/dL - High 140 mg/dL * Correction Factor: 10 mg/dL/unit * Nutritional / Prandial insulin per carb ratio of 1 unit per 3 grams CHO consumed w/ breakfast and lunch, 1 unit per 4 grams CHO w/ dinner and HS PLAN FOR DISCHARGE: * HbA1c: 7.8% * Reasonable to continue home regimen on discharge - ensure timely follow-up with outpatient provider for further dose adjustments * Support Patient Self-Management * Healthy Lifestyle (diet, exercise, and smoking cessation) * Disease self-management (SMBG) * Prevention of complications (BP, Lipid goals, Immunizations) * Consider outpatient Diabetes Self-Management Education & Support
--- NOTE | 2021-01-24 10:39 | Cardiology Progress Note ---
Date of Service January 24, 2021 Assessment & Plan (1) Diabetic ulcer of right foot: (2) Obesities, morbid: (3) CKD (chronic kidney disease): (4) Diabetes: (5) PAF (paroxysmal atrial fibrillation): (6) HTN (hypertension): (7) Pulmonary hypertension: Plan: The patient has chronic lymphedema of the lower extremities along with a stasis dermatitis. I have added hydrocortisone 1% to be applied twice daily. Also she remains hypertensive and I discontinued her atenolol in favor of carvedilol 12.5 mg twice daily for better blood pressure control. Admission and Anticipated Discharge Date Admission Date: January 19, 2021 Subjective The patient had an uneventful night. No ongoing cardiac complaints. Review of Systems Review of Systems: Review of Systems: See HPI for pertinent positives. All other 10 point review of systems are negative. Physical Exam Physical Exam: General: no acute distress and stated age Head: normocephalic, no masses, lesions, tenderness or abnormalities Eyes: conjunctiva are pink and non-injected, sclera clear Neck: supple, no adenopathy, no bruits, normal jugular venous pulse, no hepatojugular reflux Chest: normal shape and normal respiratory effort Lungs: clear to auscultation and percussion Cardiac Exam: - regular rate & rhythm, no murmurs gallops or rubs - normal S1, normal S2 Pulses: 2(+) throughout Abdomen: abdomen soft, non-tender, no abnormal masses and no hepatosplenomegaly Musculoskeletal: no gait disturbance, no joint inflammation, no deforming arthritis Extremities: Right foot with wound VAC, lower extremities with lymphedema and chronic dermatitis. Neuro: grossly normal exam Results & Data ([facility]) Vital Signs (Past 12 Hours) Vital Signs Temp Pulse Pulse Resp BP Pulse Ox 01/24/21 08:00 68 01/24/21 07:20 36.7 C 61 18 150/82 H 95 01/24/21 04:32 36.4 C L 64 20 157/73 H 94 01/23/21 23:22 36.8 C 72 20 136/58 L 94 Laboratory Results Laboratory Results - last 24 hr 01/23/21 01/23/21 01/23/21 12:05 16:13 20:32 WBC RBC Hgb Hct MCV MCH MCHC RDW Std Deviation RDW Coeff of Gurmeet Plt Count MPV Immature Gran % (Auto) Neut % (Auto) Lymph % (Auto) Clare % (Auto) Eos % (Auto) Baso % (Auto) Neut # (Auto) Lymph # (Auto) Clare # (Auto) Eos # (Auto) Baso # (Auto) Immature Gran # (Auto) PT INR APTT PTT Ratio Sodium Potassium Chloride Carbon Dioxide Anion Gap BUN Creatinine Est Cr Clr Drug Dosing Est GFR ( Amer) Est GFR (Non-Af Amer) BUN/Creatinine Ratio Glucose POC Glucose 165 H 167 H 91 Calcium 01/24/21 01/24/21 01/24/21 06:11 06:11 06:11 WBC 13.48 H RBC 4.21 Hgb 10.9 L Hct 35.8 L MCV 85.0 MCH 25.9 MCHC 30.4 L RDW Std Deviation 56.2 H RDW Coeff of Gurmeet 18.3 H Plt Count 502 H MPV 10.3 Immature Gran % (Auto) 2.1 Neut % (Auto) 58.3 Lymph % (Auto) 24.6 Clare % (Auto) 9.1 Eos % (Auto) 5.6 Baso % (Auto) 0.3 Neut # (Auto) 7.86 H Lymph # (Auto) 3.32 Clare # (Auto) 1.22 H Eos # (Auto) 0.76 H Baso # (Auto) 0.04 Immature Gran # (Auto) 0.28 H PT 15.1 H INR 1.5 H APTT 52.9 H* PTT Ratio 2.0 Sodium 140 Potassium 3.9 Chloride 102 Carbon Dioxide 36 H Anion Gap 2.0 L BUN 16 Creatinine 0.90 Est Cr Clr Drug Dosing 83.8 Est GFR ( Amer) 76.7 Est GFR (Non-Af Amer) 66.2 BUN/Creatinine Ratio 17.6 Glucose 118 H POC Glucose Calcium 9.2 01/24/21 07:26 WBC RBC Hgb Hct MCV MCH MCHC RDW Std Deviation RDW Coeff of Gurmeet Plt Count MPV Immature Gran % (Auto) Neut % (Auto) Lymph % (Auto) Clare % (Auto) Eos % (Auto) Baso % (Auto) Neut # (Auto) Lymph # (Auto) Clare # (Auto) Eos # (Auto) Baso # (Auto) Immature Gran # (Auto) PT INR APTT PTT Ratio Sodium Potassium Chloride Carbon Dioxide Anion Gap BUN Creatinine Est Cr Clr Drug Dosing Est GFR ( Amer) Est GFR (Non-Af Amer) BUN/Creatinine Ratio Glucose POC Glucose 121 H Calcium Medications Administered Current Inpatient Medications Acetaminophen (Acetaminophen 325 Mg Tab) 650 mg PO Q4H PRN PRN Reason: Pain or Fever Stop: 02/18/21 02:48 Acetaminophen (Acetaminophen 500 Mg Tab) 1,000 mg PO Q8 MYESHA Stop: 02/18/21 14:58 Last Admin: 01/24/21 06:24 Dose: Not Given Documented by: Al Hydrox/Mg Hydrox/Simethicone (Aluminum/Magnesium Susp 30 Ml Udc) 15 ml PO Q4H PRN PRN Reason: Heartburn Stop: 02/18/21 14:58 Albuterol (Albut/Ipratrop 3mg/0.5mg Neb 3 Ml Vial) 3 ml NEB Q2H PRN PRN Reason: Shortness Of Breath Stop: 02/20/21 17:38 Aspirin (Aspirin 81 Mg Ectab) 81 mg PO DAILY MYESHA Stop: 02/18/21 08:59 Last Admin: 01/24/21 08:28 Dose: 81 mg Documented by: Bisacodyl (Bisacodyl 10 Mg Supp) 10 mg AR DAILY PRN PRN Reason: Constipation Stop: 02/18/21 14:58 Carvedilol (Carvedilol 12.5 Mg Tab) 12.5 mg PO BID MYESHA Stop: 02/24/21 08:59 Dextrose (Dextrose 50% 50 Ml Syringe) 25 - 50 ml IV UD PRN; Protocol PRN Reason: Hypoglycemia Protocol Stop: 02/18/21 02:59 Diphenhydramine HCl (Diphenhydramine Capsule 25 Mg Cap) 25 mg PO Q8H PRN PRN Reason: Itching Stop: 02/18/21 14:58 Docusate Sodium (Docusate Sodium 100 Mg Cap) 100 mg PO BID MYESHA Stop: 02/18/21 20:59 Last Admin: 01/24/21 08:29 Dose: Not Given Documented by: Ertapenem (Ertapenem Consult Active) 1 ea N/A UD PRN PRN Reason: Consult Stop: 02/22/21 08:06 Furosemide (Furosemide 20 Mg Tab) 20 mg PO QAM MYESHA Stop: 02/21/21 08:59 Last Admin: 01/24/21 08:28 Dose: 20 mg Documented by: Glucagon (Glucagon For Inj 1 Mg Vial) 1 mg IM UD PRN; Protocol PRN Reason: Hypoglycemia Protocol Stop: 02/18/21 02:59 Glucose (Glucose 40% Gel 15 Gm Tube) 15 - 30 gm PO UD PRN; Protocol PRN Reason: Hypoglycemia Protocol Stop: 02/18/21 02:59 Glucose (Glucose 10 Tabs/Tube) 4 - 8 tabs PO UD PRN; Protocol PRN Reason: Hypoglycemia Protocol Stop: 02/18/21 02:59 Hydrochlorothiazide (Hydrochlorothiazide 25 Mg Tab) 25 mg PO DAILY MYESHA Stop: 02/18/21 08:59 Last Admin: 01/20/21 09:50 Dose: Not Given Documented by: Hydrocortisone (Hydrocortisone 1% Oint 30 Gm Tube) 1 appln EXT BID [facility] Stop: 02/23/21 10:29 Hydromorphone HCl (Hydromorphone Inj 0.5 Mg/0.5 Ml Syr) 0.5 mg IV Q3H PRN PRN Reason: Pain or Pre PT Stop: 02/02/21 14:58 Heparin Sodium/Dextrose (Heparin Sodium/Dextrose) 25,000 units in 500 mls @ 40 mls/hr IV .[id number] [facility]; Protocol Stop: 02/19/21 06:14 Last Titration: 01/24/21 07:14 Dose: 2,000 units/hr, 40 mls/hr Documented by: Ertapenem 1,000 mg/ Sodium (Chloride) 60 mls @ 100 mls/hr IV DAILY [facility] Stop: 03/06/21 08:59 Last Infusion: 01/24/21 09:20 Dose: Infused Documented by: Insulin Aspart (Insulin Aspart 100 Units/Ml 3 Ml Pen) 0 units SC 0730,1130 [facility] Stop: 02/22/21 07:29 Last Admin: 01/24/21 08:28 Dose: 10 units Documented by: Insulin Aspart (Insulin Aspart 100 Units/Ml 3 Ml Pen) 0 units SC 1630,2100 [facility] Stop: 02/22/21 16:29 Last Admin: 01/23/21 21:06 Dose: Not Given Documented by: Insulin Glargine (Insulin Glargine Solostar 100 Units/Ml 3 Ml Pen) 20 units SC BID [facility] Stop: 02/23/21 08:59 Last Admin: 01/24/21 08:27 Dose: 20 units Documented by: Losartan Potassium (Losartan Potassium 50 Mg Tab) 100 mg PO DAILY MYESHA Stop: 02/18/21 08:59 Last Admin: 01/24/21 08:27 Dose: 100 mg Documented by: Magnesium Hydroxide (Magnesium Hydroxide Susp 30 Ml Udc) 30 ml PO Q6H PRN PRN Reason: Constipation Stop: 02/18/21 14:58 Metoclopramide HCl (Metoclopramide Hcl Inj 5 Mg/Ml 2 Ml Vial) 10 mg IV Q6H PRN PRN Reason: Nausea And Vomiting Stop: 02/18/21 14:58 Miconazole Nitrate (Miconazole Nitrate Powder 43 Gm) 1 appln EXT PRN PRN PRN Reason: Affected Skin Folds Stop: 02/18/21 06:46 Miscellaneous (Carbohydrates For Hypoglycemia ) 15 - 30 gm PO UD PRN PRN Reason: Hypoglycemia Treatment Stop: 02/18/21 02:59 Miscellaneous Information (Pharmacy Glycemic Mgmt Consult) 1 ea N/A UD PRN PRN Reason: Consult Stop: 02/18/21 14:58 Multivitamins (Multivitamin Tab) 1 tab PO QAM [facility] Stop: 02/19/21 08:59 Last Admin: 01/24/21 08:27 Dose: 1 tab Documented by: Naloxone HCl (Naloxone Hcl 0.4 Mg/1 Ml Vial/Carp) 0.1 mg IV Q5M PRN PRN Reason: Oversedation/Resp Depression Stop: 02/18/21 14:58 Nitroglycerin (Nitroglycerin Sl 0.4 Mg/Tab Tab) 0.4 mg SL UD PRN PRN Reason: Chest Pain Stop: 02/18/21 02:48 Ondansetron HCl (Ondansetron Inj 2 Mg/Ml 2 Ml Vial) 4 mg IV Q6H PRN PRN Reason: Nausea Stop: 02/18/21 02:48 Oxycodone HCl (Oxycodone Hcl Ir 5 Mg Tab (Immediate Release)) 5 - 10 mg PO Q4H PRN PRN Reason: Pain or Pre PT Stop: 02/02/21 14:58 Polyethylene Glycol (Polyethylene (Miralax) 17 Gm Pack) 17 gm PO DAILY PRN PRN Reason: Constipation Stop: 02/18/21 02:48 Potassium Chloride (Potassium Chloride Crtab 20 Meq Tabcr) 20 meq PO DAILY MYESHA Stop: 02/22/21 08:59 Last Admin: 01/24/21 08:28 Dose: 20 meq Documented by: Sennosides (Senna 8.6 Mg Tab) 17.2 mg PO HS [facility] Stop: 02/18/21 20:59 Last Admin: 01/23/21 21:06 Dose: Not Given Documented by: Simvastatin (Simvastatin 20 Mg Tab) 20 mg PO DAILY [facility] Stop: 02/18/21 08:59 Last Admin: 01/19/21 08:17 Dose: 20 mg Documented by: Warfarin Sodium (Warfarin Sod 7.5 Mg Tab) 7.5 mg PO DAILY@1600 [facility] Stop: 02/21/21 15:59 Last Admin: 01/23/21 15:47 Dose: 7.5 mg Documented by:
[2021-01-24] MEDS: HYDROCORTISONE 1% OINT 30 GM TUBE EXT SCH ×2 (11:59→20:55)
--- NOTE | 2021-01-24 15:39 | Hospitalist Progress Note ---
Date of Service January 24, 2021 Assessment & Plan (1) PAF (paroxysmal atrial fibrillation): Plan: Paroxysmal Atrial fibrillation Atenolol discontinued Started on carvedilol 12.5 mg twice daily Continue IV Heparin Continue Coumadin Monitor INR: 1.2 >1.5 Appreciate Cardiology Input Pulmonary Vascular congestion Right heart Failure--Likely Chronic Pulmonary hypertension Suspected RAZA, OHS -ECHO: Left ventricle is normal size. Left frontal systolic function is normal. EF 55 to 60%. The right ventricle is moderate to severely dilated. Right ventricle systolic function moderately to to severely reduced. Moderate tricuspid regurgitation. Grade 1 diastolic dysfunction. Severe pulmonary hypertension is suspected with an estimated pulmonary artery pressure of 50-60 mmHg -Needs sleep study as outpatient Continue diuretics Volume status stable (2) Diabetic ulcer of right foot: Plan: S/P Debridement Received Daptomycin, Zosyn, clindamycin Blood culture: 05/04 : Group B beta strep Wound culture growing group B beta strep, Morganella Appreciate ID Input Continue Wound Care Appreciate orthopedics input Started on Ertapenem as per ID Needs 6 week course of IV antibiotics Plan to place PICC line prior to discharge (3) Abscess of right foot: Plan: Management as above (4) Osteomyelitis of fifth toe of right foot: Plan: S/P Right foot resection, fifth metatarsal head and shaft due to osteomyelitis Patient orthopedics help Continue wound care (5) Post-operative state: Plan: Activity as per Ortho (6) Cellulitis of right leg: Plan: Continue IV antibiotics (7) Morbid obesity: Plan: BMI: 61 (8) HTN (hypertension): Plan: Continue losartan, Atenolol Monitor (9) DMII (diabetes mellitus, type 2): Plan: HbA1c 7.8 Continue insulin therapy Hyperlipidemia Resume statin tomorrow Acute Kidney Injury Cr:1.85>>0.90 Monitor renal function (10) DVT prophylaxis: Plan: Heparin, Coumadin Code Status full Code Admission and Anticipated Discharge Date Admission Date: January 19, 2021 Subjective Patient is seen and examined at bedside States feeling well BP elevated Denies chest pain, dyspnea, dizziness, nausea, abd pain, leg pain Review of Systems Review of Systems: All systems reviewed & are unremarkable except as noted in Subjective Physical Exam Physical Exam: Physical Exam: Vitals signs as noted above General Appearance:Morbidly Obese, no apparent distress Head: normocephalic, Atraumatic Eyes: normal inspection, EOMI Neck: supple, Trachea midline Respiratory/Chest: Decreased breath sounds, CTA Cardiovascular: S1, S2, No murmur Abdomen/GI:Soft, Non tender, Bowel sounds present Extremities/Musculoskeletal:normal inspection, Right foot in dressing, +Wound Vac, Leg erythema Neurologic/Psych:AAOX3, grossly no focal neurological deficits Skin: normal color, warm Results & Data Results & Data ([facility]) Vital Signs (Past 12 Hours) Vital Signs Temp Pulse Pulse Resp BP Pulse Ox 01/24/21 12:06 63 01/24/21 11:55 36.6 C 61 18 169/80 H 93 01/24/21 08:00 68 01/24/21 07:20 36.7 C 61 18 150/82 H 95 01/24/21 04:32 36.4 C L 64 20 157/73 H 94 Laboratory Results Short CBC 01/24/21 Range/Units 06:11 WBC 13.48 H (4.8-10.8) K/uL Hgb 10.9 L (12.0-16.0) g/dL Hct 35.8 L (37-47) % Plt Count 502 H (130-400) K/uL BMP 01/24/21 06:11 Sodium 140 Potassium 3.9 Chloride 102 Carbon Dioxide 36 H BUN 16 Creatinine 0.90 Glucose 118 H Calcium 9.2
[2021-01-24] MEDS: WARFARIN SOD 7.5 MG TAB PO SCH (16:47)
[2021-01-24] MEDS: SENNA 8.6 MG TAB PO SCH (20:54)
[2021-01-25] MEDS: ACETAMINOPHEN 500 MG TAB PO SCH ×3 (04:46→21:44)
[2021-01-25 08:20] LABS: Hematocrit (blood only) 38.1 % (37-47); Hemoglobin 11.6 g/dL (12.0-16.0); Mean Corpuscular Hemoglobin 26.2 pg (25-34); Mean Corpuscular Hgb Conc 30.4 g/dL (32-36); Mean Corpuscular Volume 86.2 fL (80-100); Mean Platelet Volume 10.1 fL (7.4-10.4); Platelet Count 455 K/uL (130-400); RDW Coefficient of Variation 18.4 % (11.5-14.5); RDW Standard Deviation 56.7 fL (36.4-46.3); Red Blood Count 4.42 M/uL (4.2-5.4); White Blood Count 13.99 K/uL (4.8-10.8)
[2021-01-25 08:28] LABS: INR 2.5 (0.9-1.1); Prothrombin Time 23.6 Seconds (9.0-12.0)
--- NOTE | 2021-01-25 08:43 | Cardiology Progress Note ---
Date of Service January 25, 2021 Assessment & Plan (1) Diabetic ulcer of right foot: (2) Obesities, morbid: (3) CKD (chronic kidney disease): (4) Diabetes: (5) PAF (paroxysmal atrial fibrillation): (6) HTN (hypertension): (7) Pulmonary hypertension: Plan: The patient has chronic lymphedema of the lower extremities along with a stasis dermatitis. Echocardiogram performed this hospital stay revealed normal left ventricular systolic function, LVEF 55-60%. The right ventricle was noted to be dilated to a moderate to severe degree with severe RV systolic dysfunction, moderate tricuspid regurgitation, at least moderate pulmonary hypertension, estimated pulmonary artery systolic pressure in the range of 50-60 mmHg. EKG revealed newly recognized paroxysmal atrial fibrillation as documented on 01/20/2021. She was in sinus rhythm however at time of EKG on 01/18/2021, and remains in sinus rhythm at present on telemetry. Continue carvedilol (replaces atenolol) for rate control and treatment of hypertension. Continue furosemide 20 mg p.o. daily. Echocardiogram likely related to cor pulmonale physiology from obesity hypoventilation syndrome, although venous thromboembolic disease also a possibility. Lower extremity venous duplex is technically limited, without definite evidence of DVT. Her [id number] score is at least 3 given risk factors of being female, having hypertension, and age greater than 65, and systemic anticoagulation is felt to be indicated from a stroke prophylaxis standpoint. INR today is 2.5, will discontinue heparin infusion. Admission and Anticipated Discharge Date Admission Date: January 19, 2021 Subjective Patient seen in cardiology follow-up. No subjective complaints. Right lower extremity wound VAC in place. Telemetry reveals sinus rhythm in the range of 50 to 60 bpm. Heparin infusing intravenously. Review of Systems Review of Systems: Review of Systems: See HPI for pertinent positives. All other 10 point review of systems are negative. Physical Exam Physical Exam: Temp Pulse Resp BP Pulse Ox 36.8 C 86 18 119/61 96 01/25/21 08:00 01/25/21 08:00 01/25/21 08:00 01/25/21 08:00 01/25/21 08:00 Constitutional: + obese Respiratory: normal respiratory effort, lungs clear to auscultation Cardiovascular: Somewhat distant heart sounds, regular rhythm, no murmur Right lower extremity edema/lymphedema, with superimposed erythema, foot is dressed, dressing not removed. Neurologic: PERRL, EOMI, accommodation nl, no face palsy, no dysarthria Results & Data ([facility]) Vital Signs (Past 12 Hours) Vital Signs Temp Pulse Pulse Resp BP Pulse Ox 01/25/21 08:00 36.8 C 86 18 119/61 96 01/25/21 07:00 59 L 01/25/21 04:00 36.6 C 55 L 20 149/85 H 93 01/24/21 23:59 54 L 01/24/21 22:36 36.4 C L 63 18 154/80 H 95 Laboratory Results Coagulation 01/25/21 Range/Units 07:56 PT 23.6 H (9.0-12.0) Seconds CBC 01/25/21 Range/Units 07:56 WBC 13.99 H (4.8-10.8) K/uL RBC 4.42 (4.2-5.4) M/uL Hgb 11.6 L (12.0-16.0) g/dL Hct 38.1 (37-47) % Plt Count 455 H (130-400) K/uL Intake and Output 01/24/21 01/25/21 01/25/21 22:59 06:59 14:59 Intake Total 466 / 1385 200 / 1385 459.333 / 459.333 Output Total 725 / 2825 950 / 2825 Balance -259 / -1440 -750 / -1440 459.333 / 459.333 Intake: IV 466 / 560 459.333 / 459.333 Heparin Sodium/Dextrose 25,000 466 / 500 459.333 / 459.333 units In 500 ml @ 2,000 UNITS/ HR 40 mls/hr IV .[id number] [facility] Rx #:[id number] Oral 200 / 825 Output: Urine Amount (Catheter) 725 / 2825 950 / 2825 Lewis/Indwelling 725 / 2825 950 / 2825 Other: Weight 146 kg Weight Measurement Method Built in [facility]
[2021-01-25 08:49] LABS: BUN Creatinine Ratio 18.3 (10-20); Calcium 9.6 mg/dl (8.5-10.1); Creatinine Clr Calc Pharmacy 93.8 ml/min; Est GFR (African American) 88.4 ml/min; Est GFR (Non-African American) 76.3 ml/min
[2021-01-25] MEDS: HEPARIN SODIUM/DEXTROSE 25,000 UNITS/500 ML BAG IV SCH (08:50)
[2021-01-25] MEDS: INSULIN ASPART 100 UNITS/ML 3 ML PEN SC SCH ×4 (08:51→21:11)
[2021-01-25] MEDS: DOCUSATE SODIUM 100 MG CAP PO SCH ×2 (08:53→21:13)
[2021-01-25] MEDS: INSULIN GLARGINE SOLOSTAR 100 UNITS/ML 3 ML PEN SC SCH ×2 (08:54→21:12)
[2021-01-25] MEDS: MULTIVITAMIN TAB PO SCH (08:54)
[2021-01-25] MEDS: HYDROCORTISONE 1% OINT 30 GM TUBE EXT SCH ×2 (08:54→21:18)
[2021-01-25] MEDS: FUROSEMIDE 20 MG TAB PO SCH (08:54)
[2021-01-25] MEDS: LOSARTAN POTASSIUM 50 MG TAB PO SCH (08:54)
[2021-01-25] MEDS: carvediloL 12.5 MG TAB PO SCH ×2 (08:54→21:18)
[2021-01-25] MEDS: ASPIRIN 81 MG ECTAB PO SCH (08:55)
[2021-01-25] MEDS: SIMVASTATIN 20 MG TAB PO SCH (10:36)
[2021-01-25] MEDS: ERTAPENEM SODIUM 1,000 MG in SODIUM CHLORIDE 0.9% 50 ML IV SCH (10:36)
[2021-01-25] MEDS: POTASSIUM CHLORIDE CRTAB 20 MEQ TABCR PO SCH (10:36)
[2021-01-25] MEDS ORDERED: WARFARIN SOD 5 MG TAB PO SCH (16:00)
--- NOTE | 2021-01-25 17:04 | Hospitalist Progress Note ---
Date of Service January 25, 2021 Assessment & Plan (1) PAF (paroxysmal atrial fibrillation): Plan: Paroxysmal Atrial fibrillation Atenolol discontinued Continue carvedilol 12.5 mg twice daily IV Heparin discontinued Continue Coumadin Monitor INR: 1.2 >1.5>2.5 Appreciate Cardiology Input Pulmonary Vascular congestion Right heart Failure--Likely Chronic Pulmonary hypertension Suspected RAZA, OHS -ECHO: Left ventricle is normal size. Left frontal systolic function is normal. EF 55 to 60%. The right ventricle is moderate to severely dilated. Right ventricle systolic function moderately to to severely reduced. Moderate tricuspid regurgitation. Grade 1 diastolic dysfunction. Severe pulmonary hypertension is suspected with an estimated pulmonary artery pressure of 50-60 mmHg -Needs sleep study as outpatient Continue Lasix 20 mg daily Monitor volume status (2) Diabetic ulcer of right foot: Plan: S/P Debridement Received Daptomycin, Zosyn, clindamycin Blood culture: 05/04 : Group B beta strep Wound culture growing group B beta strep, Morganella Appreciate ID Input Continue Wound Care Appreciate orthopedics input Started on Ertapenem as per ID Needs 6 week course of IV antibiotics Plan to place PICC line when placement available (3) Abscess of right foot: Plan: Management as above (4) Osteomyelitis of fifth toe of right foot: Plan: S/P Right foot resection, fifth metatarsal head and shaft due to osteomyelitis Patient orthopedics help Continue wound care (5) Post-operative state: Plan: Activity as per Ortho (6) Cellulitis of right leg: Plan: Continue IV antibiotics as above (7) Morbid obesity: Plan: BMI: 61 (8) HTN (hypertension): Plan: Continue losartan, Coreg Monitor (9) DMII (diabetes mellitus, type 2): Plan: HbA1c 7.8 Continue insulin therapy Hyperlipidemia Resume statin tomorrow Acute Kidney Injury Cr:1.85>>0.90> 0.80 Monitor renal function (10) DVT prophylaxis: Plan: Coumadin Code Status full Code Admission and Anticipated Discharge Date Admission Date: January 19, 2021 Subjective Patient is seen and examined at bedside No new complaints Denies chest pain, dyspnea, dizziness, nausea, abd pain, leg pain INR is therapeutic IV Heparin discontinued Review of Systems Review of Systems: All systems reviewed & are unremarkable except as noted in Subjective Physical Exam Physical Exam: Physical Exam: Vitals signs as noted above General Appearance:Morbidly Obese, no apparent distress Head: normocephalic, Atraumatic Eyes: normal inspection, EOMI Neck: supple, Trachea midline Respiratory/Chest: Decreased breath sounds, CTA Cardiovascular: S1, S2, No murmur Abdomen/GI:Soft, Non tender, Bowel sounds present Extremities/Musculoskeletal:normal inspection, Right foot in dressing, +Wound Vac, Leg erythema Neurologic/Psych:AAOX3, grossly no focal neurological deficits Skin: normal color, warm Results & Data Results & Data ([facility]) Vital Signs (Past 12 Hours) Vital Signs Temp Pulse Pulse Resp BP Pulse Ox 01/25/21 12:00 36.8 C 74 16 146/73 H 97 01/25/21 08:00 36.8 C 86 18 119/61 96 01/25/21 07:00 59 L Laboratory Results Short CBC 01/25/21 Range/Units 07:56 WBC 13.99 H (4.8-10.8) K/uL Hgb 11.6 L (12.0-16.0) g/dL Hct 38.1 (37-47) % Plt Count 455 H (130-400) K/uL BMP 01/25/21 07:56 Sodium 140 Potassium 4.0 Chloride 99 Carbon Dioxide 39 H BUN 15 Creatinine 0.80 Glucose 109 H Calcium 9.6
[2021-01-25] MEDS: SENNA 8.6 MG TAB PO SCH (21:13)
[2021-01-26] MEDS: ACETAMINOPHEN 500 MG TAB PO SCH ×3 (05:26→21:01)
[2021-01-26 07:24] LABS: Prothrombin Time 27.6 Seconds (9.0-12.0)
[2021-01-26 07:49] LABS: BUN Creatinine Ratio 21.7 (10-20); Calcium 9.6 mg/dl (8.5-10.1); Creatinine Clr Calc Pharmacy 93.8 ml/min; Est GFR (African American) 88.4 ml/min; Est GFR (Non-African American) 76.3 ml/min; Potassium 4.6 mmol/L (3.5-5.1)
[2021-01-26] MEDS: INSULIN ASPART 100 UNITS/ML 3 ML PEN SC SCH ×4 (07:50→21:03)
[2021-01-26] MEDS: MULTIVITAMIN TAB PO SCH (08:53)
[2021-01-26] MEDS: carvediloL 12.5 MG TAB PO SCH ×2 (08:53→21:02)
[2021-01-26] MEDS: ASPIRIN 81 MG ECTAB PO SCH (08:53)
[2021-01-26] MEDS: LOSARTAN POTASSIUM 50 MG TAB PO SCH (08:53)
[2021-01-26] MEDS: SIMVASTATIN 20 MG TAB PO SCH (08:53)
[2021-01-26] MEDS: ERTAPENEM SODIUM 1,000 MG in SODIUM CHLORIDE 0.9% 50 ML IV SCH (08:56)
[2021-01-26] MEDS: POTASSIUM CHLORIDE CRTAB 20 MEQ TABCR PO SCH (08:56)
[2021-01-26] MEDS: INSULIN GLARGINE SOLOSTAR 100 UNITS/ML 3 ML PEN SC SCH (08:57)
[2021-01-26] MEDS: DOCUSATE SODIUM 100 MG CAP PO SCH ×2 (08:58→20:54)
[2021-01-26] MEDS: FUROSEMIDE 20 MG TAB PO SCH (08:58)
[2021-01-26] MEDS: HYDROCORTISONE 1% OINT 30 GM TUBE EXT SCH ×2 (08:58→21:02)
--- NOTE | 2021-01-26 11:28 | Cardiology Progress Note ---
Date of Service January 26, 2021 Assessment & Plan (1) Diabetic ulcer of right foot: (2) Obesities, morbid: (3) CKD (chronic kidney disease): (4) Diabetes: (5) PAF (paroxysmal atrial fibrillation): (6) HTN (hypertension): (7) Pulmonary hypertension: Plan: The patient has chronic lymphedema of the lower extremities along with a stasis dermatitis. Echocardiogram performed this hospital stay revealed normal left ventricular systolic function, LVEF 55-60%. The right ventricle was noted to be dilated to a moderate to severe degree with severe RV systolic dysfunction, moderate tricuspid regurgitation, at least moderate pulmonary hypertension, estimated pulmonary artery systolic pressure in the range of 50-60 mmHg. EKG revealed newly recognized paroxysmal atrial fibrillation as documented on 01/20/2021. She was in sinus rhythm however at time of EKG on 01/18/2021, and remains in sinus rhythm at present on telemetry. Continue carvedilol (replaces atenolol) for rate control and treatment of hypertension. Continue furosemide 20 mg p.o. daily. Echocardiogram likely related to cor pulmonale physiology from obesity hypoventilation syndrome, although venous thromboembolic disease also a possibility. Lower extremity venous duplex is technically limited, without definite evidence of DVT. Her [id number] score is at least 3 given risk factors of being female, having hypertension, and age greater than 65, and systemic anticoagulation is felt to be indicated from a stroke prophylaxis standpoint. INR today is 3, agree with reducing coumadin dose to 3 mg daily. Pt for transfer to [facility] when bed availabloe. Admission and Anticipated Discharge Date Admission Date: January 19, 2021 Subjective Pt seen in follow up. No complaints. Sinus rhythm in the 70s noted. Review of Systems Review of Systems: All systems reviewed & are unremarkable except as noted in HPI & below Physical Exam Physical Exam: Temp Pulse Resp BP Pulse Ox 36.8 C 70 16 114/64 95 01/26/21 07:00 01/26/21 07:00 01/26/21 07:00 01/26/21 07:00 01/26/21 07:00 Constitutional: + obese Respiratory: normal respiratory effort, lungs clear to auscultation Cardiovascular: Rate/Rhythm: regular rate Heart Sounds: no murmur Extremities: + edema (2+ RLE edema/ lymphedema patter, erythema ) Neurologic: PERRL, EOMI, accommodation nl, no face palsy, no dysarthria Results & Data ([facility]) Vital Signs (Past 12 Hours) Vital Signs Temp Pulse Resp BP Pulse Ox 01/26/21 07:00 36.8 C 70 16 114/64 95 01/26/21 03:00 36.7 C 82 16 166/78 H 92
--- NOTE | 2021-01-26 15:53 | Hospitalist Progress Note ---
Date of Service January 26, 2021 Assessment & Plan (1) PAF (paroxysmal atrial fibrillation): Plan: Paroxysmal Atrial fibrillation Atenolol discontinued Continue carvedilol 12.5 mg twice daily IV Heparin discontinued Continue Coumadin Monitor INR: 1.2 >1.5>2.5>3.0 Appreciate Cardiology Input Decrease Coumadin to 3 mg today Pulmonary Vascular congestion Right heart Failure--Likely Chronic Pulmonary hypertension Suspected RAZA, OHS -ECHO: Left ventricle is normal size. Left frontal systolic function is normal. EF 55 to 60%. The right ventricle is moderate to severely dilated. Right ventricle systolic function moderately to to severely reduced. Moderate tricuspid regurgitation. Grade 1 diastolic dysfunction. Severe pulmonary hypertension is suspected with an estimated pulmonary artery pressure of 50-60 mmHg -Needs sleep study as outpatient Continue Lasix 20 mg daily Monitor volume status (2) Diabetic ulcer of right foot: Plan: S/P Debridement Received Daptomycin, Zosyn, clindamycin Blood culture: 05/04 : Group B beta strep Wound culture growing group B beta strep, Morganella Appreciate ID Input Continue Wound Care Appreciate orthopedics input Started on Ertapenem as per ID Needs 6 week course of IV antibiotics Plan to place PICC placement today (3) Abscess of right foot: Plan: Management as above (4) Osteomyelitis of fifth toe of right foot: Plan: S/P Right foot resection, fifth metatarsal head and shaft due to osteomyelitis Patient orthopedics help Continue wound care (5) Post-operative state: Plan: Activity as per Ortho (6) Cellulitis of right leg: Plan: Continue IV antibiotics as above (7) Morbid obesity: Plan: BMI: 61 (8) HTN (hypertension): Plan: Continue losartan, Coreg Monitor (9) DMII (diabetes mellitus, type 2): Plan: HbA1c 7.8 Continue insulin therapy Hyperlipidemia Resume statin tomorrow Acute Kidney Injury Cr:1.85>>0.90> 0.80 Monitor renal function (10) DVT prophylaxis: Plan: Coumadin Code Status full Code Disposition Rehab when accepted Admission and Anticipated Discharge Date Admission Date: January 19, 2021 Subjective Patient is seen and examined at bedside No significant change from INR 3 today Waiting for rehab placement Denies chest pain, dyspnea, dizziness, nausea, abd pain, leg pain Plan for PICC placement today Physical Exam Physical Exam: Physical Exam: Vitals signs as noted above General Appearance:Morbidly Obese, no apparent distress Head: normocephalic, Atraumatic Eyes: normal inspection, EOMI Neck: supple, Trachea midline Respiratory/Chest: Decreased breath sounds, CTA Cardiovascular: S1, S2, No murmur Abdomen/GI:Soft, Non tender, Bowel sounds present Extremities/Musculoskeletal:normal inspection, Right foot in dressing, +Wound Vac, Leg erythema Neurologic/Psych:AAOX3, grossly no focal neurological deficits Skin: normal color, warm Results & Data Results & Data ([facility]) Vital Signs (Past 12 Hours) Vital Signs Temp Pulse Resp BP Pulse Ox 01/26/21 12:13 36.5 C 75 20 153/76 H 91 01/26/21 07:00 36.8 C 70 16 114/64 95
[2021-01-26] MEDS ORDERED: WARFARIN SOD 3 MG TAB PO SCH (16:00)
[2021-01-26] MEDS: SENNA 8.6 MG TAB PO SCH (20:55)
[2021-01-26] MEDS ORDERED: INSULIN GLARGINE SOLOSTAR 100 UNITS/ML 3 ML PEN SC SCH (21:00)
[2021-01-27] MEDS: ACETAMINOPHEN 500 MG TAB PO SCH ×2 (05:28→15:34)
[2021-01-27 06:27] LABS: INR 2.9 (0.9-1.1); Prothrombin Time 27.1 Seconds (9.0-12.0)
[2021-01-27 07:10] LABS: BUN Creatinine Ratio 22.2 (10-20); Calcium 9.4 mg/dl (8.5-10.1); Creatinine Clr Calc Pharmacy 91.6 ml/min; Est GFR (African American) 85.8 ml/min; Potassium 4.7 mmol/L (3.5-5.1)
[2021-01-27] MEDS: SIMVASTATIN 20 MG TAB PO SCH (08:58)
[2021-01-27] MEDS: ASPIRIN 81 MG ECTAB PO SCH (08:58)
[2021-01-27] MEDS: carvediloL 12.5 MG TAB PO SCH (08:58)
[2021-01-27] MEDS: MULTIVITAMIN TAB PO SCH (08:58)
[2021-01-27] MEDS: LOSARTAN POTASSIUM 50 MG TAB PO SCH (08:58)
[2021-01-27] MEDS ORDERED: INSULIN GLARGINE SOLOSTAR 100 UNITS/ML 3 ML PEN SC SCH (09:00)
[2021-01-27] MEDS: INSULIN ASPART 100 UNITS/ML 3 ML PEN SC SCH ×2 (09:00→12:01)
[2021-01-27] MEDS: HYDROCORTISONE 1% OINT 30 GM TUBE EXT SCH (09:00)
[2021-01-27] MEDS: ERTAPENEM SODIUM 1,000 MG in SODIUM CHLORIDE 0.9% 50 ML IV SCH (09:30)
[2021-01-27] MEDS: DOCUSATE SODIUM 100 MG CAP PO SCH (11:09)
--- NOTE | 2021-01-27 11:39 | Pharmacy Report ---
Pharmacy Glycemic Short Note 2 - Date of Service January 27, 2021 - Glycemic Short BSG Results (Last 24 hours): 01/26/21 01/26/21 01/26/21 16:29 16:40 20:20 Glucose POC Glucose 156 H 146 H 132 H 01/27/21 01/27/21 01/27/21 05:48 07:09 11:06 Glucose 137 H POC Glucose 126 H 174 H OUTPATIENT ANTIDIABETIC REGIMEN: * Lantus 30 units SQ BID * NovoLog per scale * metformin * A1c 7.8% 01/19/21 ASSESSMENT: 01/27 * 59 units SQ insulin given over last 24 hours while tolerating a diet * Fasting BSG 126 this AM w/ 30 units basal on board - will continue same dose however divide equally BID * Post-prandial BSGs less than 100 2 of 3 checks yesterday, prandial insulin dose was reduced at that time as a result. Will continue w/ less prandial doses today and follow post-prandial trend. Patient does tend to have lower BSGs 2nd half of the day. PLAN FOR INPATIENT GLYCEMIC CONTROL: * Hold outpatient oral diabetes medications (metformin) * Basal insulin - decrease * Lantus 15 units SQ BID * Bolus insulin * NovoLog per scale ACHS or Q6hrs while NPO * Goal Range: Low 110 mg/dL - High 140 mg/dL * Correction Factor: 20 mg/dL/unit * Nutritional / Prandial insulin per carb ratio of 1 unit per 5 grams CHO consumed w/ meals PLAN FOR DISCHARGE: * HbA1c: 7.8% * Reasonable to continue home regimen on discharge - ensure timely follow-up with outpatient provider for further dose adjustments * Support Patient Self-Management * Healthy Lifestyle (diet, exercise, and smoking cessation) * Disease self-management (SMBG) * Prevention of complications (BP, Lipid goals, Immunizations) * Consider outpatient Diabetes Self-Management Education & Support
[2021-01-27 11:54] VITALS: O2SAT 93
--- NOTE | 2021-01-27 13:38 | Cardiology Progress Note ---
Date of Service January 27, 2021 Assessment & Plan (1) Diabetic ulcer of right foot: (2) PAF (paroxysmal atrial fibrillation): Plan: Patient remains in sinus rhythm on telemetry, heart rate in the 70s. INR 2.9 today. She states that she has chronic right lower extremity edema, had been to physical therapy for lymphedema, and per description she has pedal pump boots at home. She had discontinued these as her wound in her foot worsened. After the foot heals, will need to resume lymphedema therapy. CO2 rising on chemistry panel, not certain that this reflects volume contraction however, she is at risk for CO2 retention respiratory standpoint. Recommend h olding furosemide today resuming tomorrow. Long-term, I think she needs to be on diuretic therapy. Admission and Anticipated Discharge Date Admission Date: January 19, 2021 Subjective Pt seen in follow up. Denies complaints. Physical Exam Physical Exam: Temp Pulse Resp BP Pulse Ox 36.8 C 71 19 145/83 H 93 01/27/21 11:54 01/27/21 11:54 01/27/21 11:54 01/27/21 11:54 01/27/21 11:54 Respiratory: normal respiratory effort, lungs clear to auscultation Cardiovascular: Rate/Rhythm: regular rate Heart Sounds: no murmur 2+ R LE edema, erythema, wound VAC in place Neurologic: PERRL, EOMI, accommodation nl, no face palsy, no dysarthria Results & Data ([facility]) Vital Signs (Past 12 Hours) Vital Signs Temp Pulse Pulse Resp BP Pulse Ox 01/27/21 11:54 36.8 C 71 19 145/83 H 93 01/27/21 08:03 36.7 C 66 19 151/73 H 97 01/27/21 08:00 62 01/27/21 04:00 36.6 C 66 16 144/73 H 91 Laboratory Results Coagulation 01/27/21 Range/Units 05:48 PT 27.1 H (9.0-12.0) Seconds Comprehensive Metabolic Panel 01/27/21 Range/Units 05:48 Sodium 139 (136-145) mmol/L Potassium 4.7 (3.5-5.1) mmol/L Chloride 98 (98-107) mmol/L Carbon Dioxide 42 H* (21-32) mmol/L BUN 18 (7-18) mg/dl Creatinine 0.82 (0.6-1.2) mg/dl Glucose 137 H (70-99) mg/dl Calcium 9.4 (8.5-10.1) mg/dl Intake and Output 01/26/21 01/27/21 01/27/21 22:59 06:59 14:59 Intake Total 340 / 1290 60 / 60 Output Total 1600 / 3752 800 / 3752 Balance -1260 / -2462 -800 / -2462 60 / 60 Intake: IV 60 / 60 Ertapenem Sodium 1,000 mg In 60 / 60 Sodium Chloride 0.9% 50 ml @ 100 mls/hr IV DAILY [facility] Rx#: [id number] Oral 340 / 1230 Output: Urine Amount (Catheter) 1600 / 3750 800 / 3750 Lewis/Indwelling 1600 / 3750 800 / 3750 Other: Weight 146.3 kg Weight Measurement Method Built in [facility]
--- NOTE | 2021-01-27 14:04 | Hospitalist Progress Note ---
Date of Service January 27, 2021 Assessment & Plan (1) PAF (paroxysmal atrial fibrillation): Plan: Paroxysmal Atrial fibrillation Atenolol discontinued Continue carvedilol 12.5 mg twice daily IV Heparin discontinued Continue Coumadin Monitor INR: 1.2 >1.5>2.5>3.0>2.9 Appreciate Cardiology Input Continue Coumadin to 3 mg today Pulmonary Vascular congestion Right heart Failure--Likely Chronic Pulmonary hypertension Suspected RAZA, OHS -ECHO: Left ventricle is normal size. Left frontal systolic function is normal. EF 55 to 60%. The right ventricle is moderate to severely dilated. Right ventricle systolic function moderately to to severely reduced. Moderate tricuspid regurgitation. Grade 1 diastolic dysfunction. Severe pulmonary hypertension is suspected with an estimated pulmonary artery pressure of 50-60 mmHg -Needs sleep study as outpatient Continue Lasix 20 mg daily upon discharge Monitor volume status (2) Diabetic ulcer of right foot: Plan: S/P Debridement Received Daptomycin, Zosyn, clindamycin Blood culture: 05/04 : Group B beta strep Wound culture growing group B beta strep, Morganella Appreciate ID Input Continue Wound Care Appreciate orthopedics input Started on Ertapenem as per ID Needs 6 week course of IV antibiotics till Mar 05 2021 Had PICC placement on 01/26/21 Needs weekly CBC, CMP while on IV antibiotics Needs follow-up with ID upon discharge (3) Abscess of right foot: Plan: Management as above (4) Osteomyelitis of fifth toe of right foot: Plan: S/P Right foot resection, fifth metatarsal head and shaft due to osteomyelitis Patient orthopedics help Continue wound care (5) Post-operative state: Plan: Activity as per Ortho (6) Cellulitis of right leg: Plan: Continue IV antibiotics as above (7) Morbid obesity: Plan: BMI: 61 (8) HTN (hypertension): Plan: Continue losartan, Coreg Monitor (9) DMII (diabetes mellitus, type 2): Plan: HbA1c 7.8 Continue insulin therapy Hyperlipidemia Resume statin tomorrow Acute Kidney Injury Cr:1.85>>0.90> 0.8 Monitor renal function (10) DVT prophylaxis: Plan: Coumadin Code Status full Code Disposition Rehab Admission and Anticipated Discharge Date Admission Date: January 19, 2021 Subjective Patient is seen and examined at bedside No New complaints INR 2.9 today Denies chest pain, dyspnea, dizziness, nausea, abd pain, leg pain Plan to discharge to Rehab today Review of Systems Review of Systems: All systems reviewed & are unremarkable except as noted in Subjective Physical Exam Physical Exam: Physical Exam: Vitals signs as noted above General Appearance:Morbidly Obese, no apparent distress Head: normocephalic, Atraumatic Eyes: normal inspection, EOMI Neck: supple, Trachea midline Respiratory/Chest: Decreased breath sounds, CTA Cardiovascular: S1, S2, No murmur Abdomen/GI:Soft, Non tender, Bowel sounds present Extremities/Musculoskeletal:normal inspection, Right foot in dressing, +Wound Vac, Leg erythema Neurologic/Psych:AAOX3, grossly no focal neurological deficits Skin: normal color, warm Results & Data Results & Data ([facility]) Vital Signs (Past 12 Hours) Vital Signs Temp Pulse Pulse Resp BP Pulse Ox 01/27/21 11:54 36.8 C 71 19 145/83 H 93 01/27/21 08:03 36.7 C 66 19 151/73 H 97 01/27/21 08:00 62 01/27/21 04:00 36.6 C 66 16 144/73 H 91 Laboratory Results [facility] 01/27/21 05:48 Sodium 139 Potassium 4.7 Chloride 98 Carbon Dioxide 42 H* BUN 18 Creatinine 0.82 Glucose 137 H Calcium 9.4 Cardiac Enzymes 01/27/21 Range/Units 05:48 Total Creatine Kinase 13 L (26-192) U/L
--- NOTE | 2021-01-27 14:23 | Discharge Summary ---
Date of Service January 27, 2021 Admission HPI Per Admitting Provider CHIEF COMPLAINT: Right lower extremity wounds. HISTORY OF PRESENT ILLNESS: This is a 65-year-old female with past medical history significant for type 2 diabetes, diabetic dermatitis, hypertension, morbid obesity, chronic kidney disease stage III, venous stasis dermatitis of both lower extremities, history of ocular hypertension, presents with right lower extremity wounds. The patient states she has a right heel wound on the plantar aspect since last almost 6 months to one year, but recently about 3 weeks ago, she developed another wound on the right thigh region medial aspect and also now she has developed a wound below the right small toe. Since the last 3 days, she has noted pain in the foot and she is not able to ambulate because should could not put weight on the leg, which prompted her to come to the hospital. As per the ER physician, when the EMS went to pick her up from the house, the house was very unkempt. The wounds were foul smelling. The patient denies any fevers. There is some drainage seen from the wound from below the right small toe on the plantar aspect. The patient is hemodynamically stable, alert and oriented. Denies any headache, no dizziness, no blurred visions, no earache, no runny nose, no sore throat, no cough. Appetite is okay. No difficulty swallowing. No chest pain, no shortness of breath, no nausea, no abdominal pain. Normal bowel movements. Denies any diarrhea or constipation, no blood in the stools or black stools. States since the last few days, she is not urinating much and she says not drinking much water. Denies any hematuria. Admission Exam Per Admitting Provider PHYSICAL EXAMINATION: GENERAL: The patient is morbidly obese, currently not in acute distress. VITAL SIGNS: Temperature 37.5, pulse 79, respiratory rate 18, blood pressure 108/46, oxygen 95% on 1 liter. HEENT: Pupils equal, round and reactive to light. Oral mucosa moist. NECK: No JVD. No neck masses. CARDIOVASCULAR: S1 and S2 heard. Regular rate and rhythm. No murmur, no gallop. RESPIRATORY SYSTEM: Normal AP diameter. No accessory muscle use. No wheezing, no crackles. ABDOMEN: Soft, bowel sounds present, nontender, no distention. CENTRAL NERVOUS SYSTEM: Alert and oriented. Cranial nerves II through XII grossly intact, nonfocal. EXTREMITIES: Bilateral lower extremity gross edema present. Right lower extremity is erythematous and also ulcers seen on the right heel on the plantar aspect and also draining wound seen on the plantar aspect below the right small toe and also wound seen on the right thigh medial aspect, 4 x 6 cm with black eschar and foul smelling. Principal Diagnosis Paroxysmal Atrial fibrillation Diabetic ulcer of right foot S/P debridement Osteomyelitis of fifth toe of right foot S/P surgery Acute Kidney Injury -Resolved Discharge Data Allergies Allergy/AdvReac Type Severity Reaction Status Date / Time No Known Allergies Allergy NONE Unverified 01/18/21 21:47 Consultations 01/19/21 00:05 ED Decision to Admit Stat 01/19/21 02:49 Consult Orthopedic Surgery Routine 01/19/21 19:36 Consult Infectious Diseases Routine 01/20/21 06:14 Consult Cardiology Routine Procedures Performed Operation Date: 01/19/21 11:00 Actual Procedures p Right foot fifth toe partial amputation, tenosynovectomy fifth extensor tendon with resection, evacuation abscess lateral foot, (Right) - DO iam Jeffery Fifth metatarsal head resection, tenosynovectomy fifth extensor tendon with resection, evacuation abscess lateral foot, (Right) - DO iam Jeffery debridement right thigh ulcer, debridement right heel, and debridement right fifth metatarsal(Right) - Hermilo Montalvo DO Ordered Studies 01/18/21 22:23 US venous doppler LE RT Urgent 01/19/21 00:45 CT femur RT wo con Urgent CT foot RT wo con Urgent 01/19/21 14:59 MR ankle RT wo con Routine US arterial duplex LE RT Routine Hospital Course (1) PAF (paroxysmal atrial fibrillation): Paroxysmal Atrial fibrillation Atenolol discontinued Continue carvedilol 12.5 mg twice daily IV Heparin discontinued Continue Coumadin Monitor INR: 1.2 >1.5>2.5>3.0>2.9 Appreciate Cardiology Input Continue Coumadin to 3 mg today Pulmonary Vascular congestion Right heart Failure--Likely Chronic Pulmonary hypertension Suspected RAZA, OHS -ECHO: Left ventricle is normal size. Left frontal systolic function is normal. EF 55 to 60%. The right ventricle is moderate to severely dilated. Right ventricle systolic function moderately to to severely reduced. Moderate tricuspid regurgitation. Grade 1 diastolic dysfunction. Severe pulmonary hypertension is suspected with an estimated pulmonary artery pressure of 50-60 mmHg -Needs sleep study as outpatient Continue Lasix 20 mg daily upon discharge Monitor volume status (2) Diabetic ulcer of right foot: S/P Debridement Received Daptomycin, Zosyn, clindamycin Blood culture: 05/04 : Group B beta strep Wound culture growing group B beta strep, Morganella Appreciate ID Input Continue Wound Care Appreciate orthopedics input Started on Ertapenem as per ID Needs 6 week course of IV antibiotics till Mar 05 2021 Had PICC placement on 01/26/21 Needs weekly CBC, CMP while on IV antibiotics Needs follow-up with ID upon discharge (3) Abscess of right foot: Management as above (4) Osteomyelitis of fifth toe of right foot: S/P Right foot resection, fifth metatarsal head and shaft due to osteomyelitis Patient orthopedics help Continue wound care (5) Post-operative state: Activity as per Ortho (6) Cellulitis of right leg: Continue IV antibiotics as above (7) Morbid obesity: BMI: 61 (8) HTN (hypertension): Continue losartan, Coreg Monitor (9) DMII (diabetes mellitus, type 2): HbA1c 7.8 Continue insulin therapy Hyperlipidemia Resume statin tomorrow Acute Kidney Injury Cr:1.85>>0.90> 0.8 Monitor renal function (10) DVT prophylaxis: Coumadin Code Status full Code Disposition Rehab Total Time Total Time Spent Total Time Spent (In Minutes): 44 minutes Discharge Plan Discharge Items Patient Disposition: Transfer Inpatient Rehab Fac Reason For Visit: WOUNDS Discharge Diagnosis: Paroxysmal Atrial fibrillation Diabetic ulcer of right foot S/P debridement Osteomyelitis of fifth toe of right foot S/P surgery Acute Kidney Injury -Resolved Activity: Per Instructions section Exercise/Sports: Gradually increase as tolerated Non-emergency contact: Primary Care Provider, Surgeon and Specialist Call non-emergency contact if: you have any medication questions, your symptoms worsen, your pain is concerning for you and you have a fever Follow-up/Referrals: PCP,NO [Primary Care Provider] - Dietitian Info: Minced and Moist Diet: Carb Consistent or DM2 Addtl Attending Provider Instructions: Follow-up with your primary care physician in 1 week upon discharge from rehab facility Follow-up with your infectious disease Dr. Siva Valdez in 3-4 weeks Follow-up with your surgeon as advised Follow-up with your e business manager Dr. Amado in 4-6 weeks Complete antibiotic course IV on ertapenem 1000 mg daily until March 05, 2021 to complete 6-week course of IV antibiotics as recommended by your infectious disease. Get weekly CBC, CMP while on IV antibiotics and follow-up with your infectious disease physician. Monitor your PT/INR and adjust Coumadin dose as needed to maintain your target INR between 2.0-3.0. Your PT/INR is 2.9 today. Take 3 mg Coumadin today. Get Repeat PT/INR TOMORROW (01/28/21) and discussed with your physician for further Coumadin dosing Seek immediate medical attention if your symptoms reoccur or worsen Please take all medications as instructed on discharge list below. Please call if you have any questions or problems. You can reach a [facility] hospitalist on duty at [facility] 24 hours a day by calling [phone] Pending Studies at Discharge: No Stand-Alone Forms: My [facility] Skilled Items Patient informed of condition?: Yes DNR: No Discharge Level of Care: Acute rehab Communicable Disease: No Discharge Prognosis: Stable Lines: PICC Urinary Catheter: No Medications and DC Order Prescriptions: New carvedilol 12.5 mg Tablet 12.5 mg PO BID Qty: 60 RF: 0 polyethylene glycol 3350 [Miralax] 17 gram Powder In Packet 17 g PO DAILY PRN (Reason: constipation) Qty: 30 RF: 0 warfarin 1 mg tablet 1 mg PO UD Qty: 90 RF: 0 docusate sodium 100 mg Capsule 100 mg PO BID PRNQty: 0 RF: 0 Ertapenem Consult Active [Consult] 1 dose Not Applicable UD PRNQty: 0 RF: 0 oxycodone 5 mg Tablet 5 mg PO Q4H PRNQty: 0 RF: 0 Continued metformin 500 mg tablet 1,000 mg PO BID RF: 0 Lantus U-100 Insulin 100 unit/mL solution 30 unit SUBCUT BID RF: 0 insulin aspart U-100 [Novolog U-100 Insulin aspart] 100 unit/mL solution 0 unit subcut UD RF: 0 simvastatin 20 mg tablet 20 mg PO DAILY RF: 0 aspirin 81 mg Tablet 81 mg PO DAILY RF: 0 losartan 100 mg tablet 100 mg PO DAILY RF: 0 Changed furosemide 20 mg tablet 20 mg PO DAILY Qty: 0 RF: 0 Discontinued hydrochlorothiazide 25 mg tablet 25 mg PO DAILY RF: 0 atenolol 50 mg tablet 50 mg PO DAILY RF: 0 Discharge Orders: Discharge Order (Routine); Ordered 01/27/21 Ordered By: Joshua Aly/Michael Patient Handouts: A1C, High Blood Sugar (Hyperglycemia), Managing Type 2 Diabetes, Special Foot Care for Diabetes Admission Data Admit Date/Time: 01/19/21 00:45 Attending Provider: Joshua Lozoya Admit Provider: Sergio Rodriguez Primary Care Provider: PCP,NO Other Providers: Sergio Rodriguez ; Hermilo Montalvo ; Rodo Hood ; Isabelle Arauz ; Jm Nicole I. ; Brayden Villarreal II ; Bhumi Valdez ; Apolinar Arrington ; Alexis Deluca ; Jesse Amado ; Amando Gómez ; Edward Hairston ; Priyank High ; Apolinar Haynes ; Cathy Ugarte ; Vicki Jean-Baptiste ; Cynthia Espinal ; Michael Perez ; [facility] ; Alicia Tariq ; [facility]
[2021-01-27] MEDS ORDERED: ACETAMINOPHEN 1000 MG/100 ML IV IV ONE (15:31)
[2021-01-27 15:44] VITALS: BP 144/84; PULSE 68; TEMP 98.1
== END 2021-01-27 16:26 | DRG 623 ==
LOC: ED 21:24 → SUATTDRO 01-19 00:45 → 2N 01-19 00:45 → 1E 01-20 07:26 → 2S 01-23 18:57
DX: I48.0 Paroxysmal atrial fibrillation; I89.0 Lymphedema, not elsewhere classified; E11.22 Type 2 diabetes mellitus with diabetic chronic kidney disease; Z68.44 Body mass index [BMI] 60.0-69.9, adult; N18.31 Chronic kidney disease, stage 3a; E11.49 Type 2 diabetes mellitus with other diabetic neurological complication; I50.812 Chronic right heart failure; I27.20 Pulmonary hypertension, unspecified; L97.118 Non-pressure chronic ulcer of right thigh with other specified severity; I48.92 Unspecified atrial flutter; I13.0 Hypertensive heart and chronic kidney disease with heart failure and stage 1 through stage 4 chronic kidney disease, or unspecified chronic kidney disease; E11.620 Type 2 diabetes mellitus with diabetic dermatitis; E11.621 Type 2 diabetes mellitus with foot ulcer; E78.5 Hyperlipidemia, unspecified; M86.9 Osteomyelitis, unspecified; E11.69 Type 2 diabetes mellitus with other specified complication; N17.9 Acute kidney failure, unspecified; M65.171 Other infective (teno)synovitis, right ankle and foot; L97.519 Non-pressure chronic ulcer of other part of right foot with unspecified severity; Z79.4 Long term (current) use of insulin; L02.611 Cutaneous abscess of right foot; E66.2 Morbid (severe) obesity with alveolar hypoventilation; L03.115 Cellulitis of right lower limb; Z79.82 Long term (current) use of aspirin